=== PATIENT | female | born 1970 | race Caucasian/White ===

== ENCOUNTER → 2020-05-21 09:55 | Outpatient (BNVA) | payer OTHER, SELFPAY | PROVIDERS: Visit Provider Surgery | DX: Z76.89 Persons encountering health services in other specified circumstances (principal) ==

== ENCOUNTER 2020-05-30 09:27 | Outpatient (REF) | payer OTHER, SELFPAY ==
[2020-05-30 09:45] LABS: COVID-19 Test Negative (Negative)
== END 2020-05-30 09:28 | disposition home or self-care (01) ==
LOC: HO.LAB 09:27
PROVIDERS: PCP Internal Medicine; Visit Provider Internal Medicine
DX: Z20.828 Contact with and (suspected) exposure to other viral communicable diseases (principal)
CPT/HCPCS: 87635

== ENCOUNTER → 2020-06-20 09:53 | Outpatient (BNVA) | payer OTHER, SELFPAY | PROVIDERS: PCP Internal Medicine; Referring Provider Nurse Practitioner Adult Health; Visit Provider Physician Assistant | DX: Z98.84 Bariatric surgery status (principal); Z90.3 Acquired absence of stomach [part of]; Z71.3 Dietary counseling and surveillance | CPT/HCPCS: 99212 ==

== ENCOUNTER → 2020-06-28 08:57 | Outpatient (BNVA) | payer OTHER, SELFPAY | PROVIDERS: Visit Provider Physician Assistant | DX: E66.9 Obesity, unspecified (principal); Z68.33 Body mass index [BMI] 33.0-33.9, adult; Z98.84 Bariatric surgery status | CPT/HCPCS: 99212 ==

== ENCOUNTER → 2020-08-01 09:24 | Outpatient (BNVA) | payer OTHER, SELFPAY | PROVIDERS: PCP Internal Medicine; Visit Provider Physician Assistant | DX: Z76.89 Persons encountering health services in other specified circumstances (principal) ==

== ENCOUNTER → 2020-08-22 08:04 | Outpatient (BNVA) | payer OTHER, SELFPAY | PROVIDERS: PCP Internal Medicine; Visit Provider Dietitian, Registered | DX: Z76.89 Persons encountering health services in other specified circumstances (principal) ==

== ENCOUNTER → 2020-08-23 08:15 | Outpatient (BNVA) | payer OTHER, SELFPAY | PROVIDERS: PCP Internal Medicine; Visit Provider Physician Assistant | DX: Z76.89 Persons encountering health services in other specified circumstances (principal) ==

== ENCOUNTER → 2020-10-17 13:57 | Outpatient (REF) | payer OTHER, SELFPAY ==
--- NOTE | 2020-10-17 14:30 | ECG_ITS ---
Hook-up date: 2020-10-17 14:08:00 Duration: 25:24:00 Test Indications: PVC'S Medications: 716829 QRS complexes 976 Ventricular ectopics which represent <1 % of total QRS comp. 9 Supraventricular ectopics which represent <1 % of total QRS comp. * Paced QRS complexs which represent % of total QRS comp. VENTRICULAR ECTOPY 976 Isolated 3 Bigeminal Cycles 0 Couplets 0 Runs 0 Beats in Runs * Beats LONGEST at * BPM at :: -- * Beats FASTEST at * BPM at :: -- SUPRAVENTRICULAR ECTOPY 2 Isolated 0 Couplets 1 Runs 7 Beats in Runs 7 Beats LONGEST at 120 BPM at 03:33:46 2020-10-18 7 Beats FASTEST at 120 BPM at 03:33:46 2020-10-18 HEART RATES 54 MIN at 07:22:27 2020-10-18 79 AVG 135 MAX at 09:16:04 2020-10-18 LONGEST RR 1.4480 secs at 08:17:48 2020-10-18 S-T LEVELS Channel 1 - 128 mm at 14:08:00 2020-10-17 - 128 mm at 14:08:00 2020-10-17 Channel 2 - 128 mm at 14:08:00 2020-10-17 - 128 mm at 14:08:00 2020-10-17 Channel 3 - 128 mm at 03:32:71 -- - 128 mm at 03:32:71 Basic rhythm Normal sinus rhythm No long pause or profound bradycardia Frequent Premature ventricular complexes No diary submitted Referred By: Titus Lomax Overread By: YOHANNES GODINEZ MD
== END ==
LOC: HO.CARD 13:57
PROVIDERS: Visit Provider Internal Medicine
DX: I49.3 Ventricular premature depolarization (principal)
CPT/HCPCS: 93225; 93226

== ENCOUNTER 2020-11-05 12:19 | Outpatient (REF) | payer OTHER, SELFPAY ==
[2020-11-05 13:18] LABS: MANUAL DIFF FLAG NO
[2020-11-05 13:37] LABS: Basophils Percent Auto 0.6 % (0-2); Eosinophils Absolute Auto 0.1 X10*3/uL (0.0-0.4); Eosinophils Percent Auto 2.1 % (0-4); Hematocrit 42.4 % (37-47); Hemoglobin 13.8 g/dl (12.0-16.0); Imm Gran Abs Auto 0.01 X10*3/uL (0.00-0.03); Imm Gran Pct Auto 0.2 % (0.0-0.4); Lymphocytes Absolute Auto 1.6 X10*3/uL (1.2-4.9); Lymphocytes Percent Auto 30.1 % (20-40); Mean Corpuscular HGB Conc 32.5 g/dl (31.0-35.0); Mean Corpuscular Hemoglobin 27.2 pg (27.0-33.0); Mean Corpuscular Volume 83.5 fL (80-98); Mean Platelet Volume 11.8 fL (9.4-12.3); Monocytes Absolute Auto 0.3 X10*3/uL (0.1-1.2); Monocytes Percent Auto 5.8 % (2-11); Neutrophils Absolute Auto 3.2 X10*3/uL (2.0-8.3); Neutrophils Percent Auto 61.2 % (45-73); Platelet Count 256 X10*3/uL (160-400); Red Blood Count 5.08 X10*6/uL (4.20-5.50); Red Cell Distribution Width 14.2 % (11.0-16.0); White Blood Count 5.2 X10*3/uL (4.8-10.8)
[2020-11-05 13:59] LABS: Estimated Average Glucose 105 mg/dL; Hemoglobin A1c % 5.3 %
[2020-11-05 14:17] LABS: Alanine Aminotransferase 16 U/L (0-31); Albumin Level 4.1 g/dL (3.5-5.0); Alkaline Phosphatase 76 U/L (39-117); Anion Gap 13 (12-20); Aspartate Amino Transferase 17 U/L (5-31); Bilirubin Total 0.6 mg/dL (0.0-1.0); Blood Urea Nitrogen 12 mg/dL (9-16); Calcium 9.2 mg/dL (8.4-10.2); Carbon Dioxide 28 mmol/L (22-29); Chloride 104 mmol/L (96-108); Cholesterol 237 mg/dL; Estimated Glomerular Filt Rate > 60; Glucose Random 88 mg/dL (60-115); HDL Cholesterol 61 mg/dL; LDL Cholesterol Calculated 154 mg/dl; Potassium 4.6 mmol/L (3.3-5.1); Sodium 140 mmol/L (135-145); Total Protein 6.8 g/dL (6.5-8.0); Triglycerides 111 mg/dL
[2020-11-05 14:24] LABS: Free T4 (Free Thyroxine) 0.91 ng/dL (0.71-1.85); Thyroid Stimulating Hormone 0.67 uIU/mL (0.32-4.0); Vitamin D 25-OH Total 33.8 ng/mL (>30)
[2020-11-05 14:46] LABS: Creatinine Urine 182.29 mg/dL; Microalbum/Creatinine Ratio Ur 7.1 ug/mg cr
[2020-11-05 14:47] LABS: Folate 19.2 ng/mL (> or = 4.0); Vitamin B12 382 pg/mL (200-900)
== END 2020-11-05 12:20 | disposition home or self-care (01) ==
LOC: HO.LAB 12:19
PROVIDERS: PCP Internal Medicine; Visit Provider Internal Medicine
DX: I10 Essential (primary) hypertension (principal); E78.5 Hyperlipidemia, unspecified; E11.65 Type 2 diabetes mellitus with hyperglycemia; E78.00 Pure hypercholesterolemia, unspecified
CPT/HCPCS: 36415; 80053; 80061; 82043; 82306; 82533; 82607; 82746; 83036; 84439; 84443; 85025

== ENCOUNTER → 2020-11-08 08:10 | Outpatient (BNVA) | payer OTHER, SELFPAY | PROVIDERS: PCP Internal Medicine; Visit Provider Physician Assistant ==

== ENCOUNTER → 2020-11-14 09:09 | Outpatient (BNVA) | payer OTHER, SELFPAY | PROVIDERS: PCP Internal Medicine; Visit Provider Internal Medicine | DX: I49.3 Ventricular premature depolarization (principal); I10 Essential (primary) hypertension; Z98.84 Bariatric surgery status | CPT/HCPCS: 93005; 99212 ==

== ENCOUNTER → 2020-12-12 08:15 | Outpatient (BNVA) | payer OTHER, SELFPAY | PROVIDERS: PCP Internal Medicine; Visit Provider Dietitian, Registered ==

== ENCOUNTER 2021-02-05 07:24 | Outpatient (REF) | payer OTHER, SELFPAY ==
[2021-02-05 08:42] LABS: Alanine Aminotransferase 15 U/L (0-31); Albumin Level 4.2 g/dL (3.5-5.0); Alkaline Phosphatase 80 U/L (39-117); Anion Gap 10 (12-20); Aspartate Amino Transferase 16 U/L (5-31); Bilirubin Total 0.4 mg/dL (0.0-1.0); Blood Urea Nitrogen 14 mg/dL (9-16); Calcium 9.5 mg/dL (8.4-10.2); Carbon Dioxide 30 mmol/L (22-29); Chloride 104 mmol/L (96-108); Cholesterol 245 mg/dL; Estimated Glomerular Filt Rate > 60; Glucose Random 91 mg/dL (60-115); HDL Cholesterol 74 mg/dL; LDL Cholesterol Calculated 148 mg/dl; Potassium 4.1 mmol/L (3.3-5.1); Sodium 140 mmol/L (135-145); Total Protein 6.9 g/dL (6.5-8.0); Triglycerides 118 mg/dL
[2021-02-05 08:57] LABS: Creatinine Urine 158.42 mg/dL
[2021-02-05 09:14] LABS: Estimated Average Glucose 111 mg/dL; Hemoglobin A1c % 5.5 %
[2021-02-10 17:33] LABS: Vitamin A 55 mcg/dL (38-98)
== END 2021-02-05 07:25 | disposition home or self-care (01) ==
LOC: HO.LAB 07:24
PROVIDERS: Physician Assistant; PCP Internal Medicine; Visit Provider Internal Medicine
DX: E78.00 Pure hypercholesterolemia, unspecified (principal); E11.65 Type 2 diabetes mellitus with hyperglycemia; Z98.84 Bariatric surgery status
CPT/HCPCS: 36415; 80053; 80061; 83036; 84590

== ENCOUNTER 2021-08-19 08:35 | Outpatient (REF) | payer OTHER, SELFPAY ==
[2021-08-19 11:10] LABS: Binax Now Covid-19 Ag Negative (Negative)
[2021-08-19 11:11] LABS: Binax Internal Control QC Valid; Binax Lot number: 9864
== END 2021-08-19 08:36 | disposition home or self-care (01) ==
LOC: HO.LAB 08:35
PROVIDERS: Visit Provider Internal Medicine
DX: Z20.822 Contact with and (suspected) exposure to COVID-19 (principal)
CPT/HCPCS: 36415; C9803

== ENCOUNTER → 2021-11-13 07:22 | Outpatient (REF) | payer OTHER, SELFPAY ==
--- NOTE | 2021-11-13 07:24 | CA_ITS ---
Transthoracic Echocardiogram Patient (Last, First, Middle): Rosa Bates, Gender: Female Date of : 1970 Age: 51 Procedure Date: 11/13/2021 Procedure Type: Transthoracic Echocardiogram Location: OP Height: 149.86 cm Weight: 70.31 kg BSA: 1.65 m2 Heart Rate: bpm BP: 126 / 82 mmHg Manager It Training: DEYANIRA Referring MD: Titus Lomax MD Symptoms: I49.3 - Ventricular premature depolarization Study Quality: Good ECG Rhythm: Sinus Conclusions: - The left ventricular systolic function is normal. The calculated ejection fraction is 56% by biplane method. - No obvious valvular pathology seen on this study. Findings Left Ventricle Normal left ventricular cavity size. There is mildly increased left ventricular wall thickness. The left ventricular systolic function is normal. The calculated ejection fraction is 56% by biplane method. There is no evidence of regional wall motion abnormalities. Evidence suggests grade I (mild) diastolic dysfunction. Right Ventricle Normal right ventricular cavity size and systolic function. Atria Both atria are normal in size. Aortic Valve There is a normal trileaflet aortic valve. There is no aortic valve stenosis. There is no aortic valve regurgitation. Mitral Valve The mitral valve appears normal. There is trace mitral valve regurgitation. There is no mitral valve stenosis. Pulmonic Valve The pulmonic valve was not well visualized. Tricuspid Valve Normal tricuspid valve structure. There is trace tricuspid valve regurgitation. The pulmonary artery systolic pressure is normal. Great Vessels The asc aorta and aortic arch are normal in size. Venous The inferior vena cava is normal in size and collapses greater than 50% with inspiration. Pericardium/Pleural There is a trivial pericardial effusion. Prior Study Comparison No significant change compared to prior study dated: 08/29/2019. Recommendations, Care & Conclusions No obvious valvular pathology seen on this study. Measurements 2D Linear Measurements IVSd: 1.11 0.6-0.9/0.6-1.0 cm LVIDd: 5.11 3.9-5.3/4.2-5.9 cm LVIDd Index: 3.10 2.4-3.2/2.2-3.1 cm/m2 LVIDs: 3.36 2.0-3.6 cm LVPWd: 1.21 0.7-1.1 cm LA Diam: 3.90 2.7-3.8/3.0-4.0 cm LAIDs Index: 2.36 1.5-2.3 cm/m2 LV Mass: 287.81 67-162/88-224 g LV Mass Index: 174.43 43-95/49-115 g/m2 LVOT Diam: 2.10 3.0+(-)1.3 cm 2D Systolic Function EF 4C: 54.00 >55% EF 2C: 57.10 >55% EF BiP: 55.70 >55% Mitral Valve MV Pk E: 0.47 MV PK A: 0.45 MV Decel Time: 181.00 E/A: 1.00 E'Lateral: 5.22 E'Medial: 4.03 E/E' Med: 11.70 E/E' Lat: 9.00 PHT: 53.00 MVA PHT: 4.15 Decel [place]: 2.60 Aortic Valve AoV Pk [place]: 1.21 AoV Pk Grad: 6.00 LVOT LVOT Pk Dawson: 0.73 LVOT Mn Dawson: 0.47 LVOT VTI: 0.15 LVOT Pk Grad: 2.00 LVOT Mn Grad: 1.00 LVOT Diam: 2.10 LVOT Area: 3.46 Diastolic Function MV Pk E: 0.47 MV Pk A: 0.45 E/A: 1.00 E'Medial: 4.03 E/E' Med: 11.70 E' Laterial: 5.22 E/E' Lat: 9.00 Right Ventricle TAPSE (mm): 1.80 TVS' Dawson: 11.70 Tricuspid Valve TR Pk Dawson: 1.79 TR Pk Grad: 13.00 RA Press: 3.00 RVSP: 16.00 Great Vessels Aorta Sinus of Valsalva: 3.20 2.0-3.5 cm Ao Asc: 3.40 2.1-3.4 cm Ao Arch: 2.60 Updated in Other Vendor System with Status of Final Titus Lomax MD electronically signed on 11/15/2021 1:41:48 PM with status of Final
== END ==
LOC: HO.CARD 07:22
PROVIDERS: Visit Provider Internal Medicine
DX: I49.3 Ventricular premature depolarization (principal)
CPT/HCPCS: 93306

== ENCOUNTER → 2021-11-26 13:25 | Outpatient (REF) | payer OTHER, SELFPAY ==
--- NOTE | 2021-11-26 13:28 | ECG_ITS ---
Hook-up date: 2021-11-26 12:37:00 Duration: 23:58:00 Test Indications: PAF, VENTR. PREMATURE DEPOL. Medications: [id number] QRS complexes 179 Ventricular ectopics which represent <1 % of total QRS comp. 1 Supraventricular ectopics which represent <1 % of total QRS comp. * Paced QRS complexs which represent % of total QRS comp. VENTRICULAR ECTOPY 177 Isolated 0 Bigeminal Cycles 1 Couplets 0 Runs 0 Beats in Runs * Beats LONGEST at * BPM at :: -- * Beats FASTEST at * BPM at :: -- SUPRAVENTRICULAR ECTOPY 1 Isolated 0 Couplets 0 Runs 0 Beats in Runs * Beats LONGEST at * BPM at :: -- * Beats FASTEST at * BPM at :: -- HEART RATES 50 MIN at 21:48:59 2021-11-26 78 AVG 140 MAX at 05:22:30 2021-11-27 LONGEST RR 1.2240 secs at 21:48:56 2021-11-26 S-T LEVELS Channel 1 - 128 mm at 12:37:00 2021-11-26 - 128 mm at 12:37:00 2021-11-26 Channel 2 - 128 mm at 12:37:00 2021-11-26 - 128 mm at 12:37:00 2021-11-26 Channel 3 - 128 mm at 03:15:61 -- - 128 mm at 03:15:61 Basic rhythm Normal sinus rhythm No long pause or profound bradycardia No sustained Atrial fibrillation Occasional Premature ventricular complexes Patient reported chest pain correlated with NSR Referred By: Titus Lomax Overread By: YOHANNES GODINEZ MD
== END ==
LOC: HO.CARD 13:25
PROVIDERS: PCP Internal Medicine; Visit Provider Internal Medicine
DX: I48.0 Paroxysmal atrial fibrillation (principal); I49.3 Ventricular premature depolarization
CPT/HCPCS: 93225; 93226

== ENCOUNTER → 2021-12-17 08:02 | Outpatient (BNVA) | payer OTHER, SELFPAY | PROVIDERS: PCP Internal Medicine; Referring Provider Internal Medicine; Visit Provider Internal Medicine | DX: I49.3 Ventricular premature depolarization (principal); I10 Essential (primary) hypertension; Z98.84 Bariatric surgery status | CPT/HCPCS: 93005; 99212 ==

== ENCOUNTER → 2022-06-29 16:25 | Outpatient (BNVA) | payer OTHER, SELFPAY | PROVIDERS: PCP Internal Medicine; Visit Provider Physician Assistant Surgical | DX: E66.3 Overweight (principal); L98.7 Excessive and redundant skin and subcutaneous tissue; Z98.84 Bariatric surgery status; Z68.29 Body mass index [BMI] 29.0-29.9, adult | CPT/HCPCS: 99212 ==

== ENCOUNTER → 2022-07-03 08:23 | Outpatient (BNVA) | payer OTHER, SELFPAY | PROVIDERS: PCP Internal Medicine; Visit Provider Internal Medicine | DX: R94.31 Abnormal electrocardiogram [ECG] [EKG] (principal) | CPT/HCPCS: 93005 ==

== ENCOUNTER 2022-07-10 10:01 | Outpatient (REF) | payer OTHER, SELFPAY ==
[2022-07-10 10:25] LABS: MANUAL DIFF FLAG NO
[2022-07-10 10:58] LABS: Basophils Percent Auto 1.1 % (0-2); Eosinophils Absolute Auto 0.1 X10*3/uL (0.0-0.4); Eosinophils Percent Auto 1.8 % (0-4); Hematocrit 43.1 % (37.0-47.0); Hemoglobin 14.4 g/dl (12.0-16.0); Lymphocytes Absolute Auto 1.2 X10*3/uL (1.2-4.9); Lymphocytes Percent Auto 31.3 % (20-40); Mean Corpuscular HGB Conc 33.4 g/dl (31.0-35.0); Mean Corpuscular Volume 80.7 fL (80.0-98.0); Mean Platelet Volume 11.6 fL (9.4-12.3); Monocytes Absolute Auto 0.3 X10*3/uL (0.1-1.2); Monocytes Percent Auto 7.4 % (2-11); Neutrophils Absolute Auto 2.2 x10*3/uL (2.0-8.3); Neutrophils Percent Auto 58.4 % (45-73); Platelet Count 237 X10*3/uL (160-400); Red Blood Count 5.34 X10*6/uL (4.20-5.50); Red Cell Distribution Width 12.9 % (11.0-16.0); White Blood Count 3.8 X10*3/uL (4.8-10.8)
[2022-07-10 11:26] LABS: Creatinine Urine 313.36 mg/dL; Microalbum/Creatinine Ratio Ur 27.7 ug/mg cr
[2022-07-10 11:45] LABS: Estimated Average Glucose 111 mg/dL; Hemoglobin A1c % 5.5 %
[2022-07-10 11:58] LABS: Alanine Aminotransferase 16 U/L (0-31); Albumin Level 4.2 g/dL (3.5-5.0); Alkaline Phosphatase 87 U/L (39-117); Anion Gap 14 (12-20); Aspartate Amino Transferase 19 U/L (5-31); Bilirubin Total 0.6 mg/dL (0.0-1.0); Blood Urea Nitrogen 12 mg/dL (9-16); C Reactive Protein 0.11 mg/dL (< or = 0.50); Calcium 9.1 mg/dL (8.4-10.2); Carbon Dioxide 27 mmol/L (22-29); Chloride 104 mmol/L (96-108); Cholesterol 234 mg/dL; Estimated Glomerular Filt Rate > 60; Glucose Random 95 mg/dL (60-115); HDL Cholesterol 78 mg/dL; Iron 80 mcg/dL (30-160); LDL Cholesterol Calculated 139 mg/dl; Percent Iron Saturation 24 % (15-50); Potassium 3.7 mmol/L (3.3-5.1); Sodium 141 mmol/L (135-145); Total Iron Binding Capacity 328 mcg/dL (228-428); Triglycerides 88 mg/dL; Unsaturated Iron Binding 248 ug/dL
[2022-07-10 12:22] LABS: Ferritin 48 ng/mL (10-250); Free T4 (Free Thyroxine) 0.94 ng/dL (0.71-1.85); Insulin 5 uU/mL (2-29); TSH reflex Free T4 0.85 uIU/mL (0.32-4.0); Vitamin D 25-OH Total 29.9 ng/mL (>30)
[2022-07-10 14:16] LABS: Vitamin B12 255 pg/mL (200-900)
[2022-07-12 10:17] LABS: Calcium (PTHI) 9.1 mg/dL (8.6-10.4); PTHI 122 pg/mL (16-77)
[2022-07-14 17:22] LABS: Vitamin B1 10 nmol/L (8-30)
[2022-07-14 19:41] LABS: Zinc 68 mcg/dL (60-130)
[2022-07-15 08:59] LABS: Vitamin A 53 mcg/dL (38-98)
== END 2022-07-10 10:02 | disposition home or self-care (01) ==
LOC: HO.LAB 10:01
PROVIDERS: Absent Provider Internal Medicine; PCP Internal Medicine; Visit Provider Physician Assistant Surgical
DX: I10 Essential (primary) hypertension (principal); E78.00 Pure hypercholesterolemia, unspecified; E11.65 Type 2 diabetes mellitus with hyperglycemia; Z98.84 Bariatric surgery status
CPT/HCPCS: 36415; 80053; 80061; 82043; 82306; 82607; 82728; 82746; 83036; 83525; 83540; 83735; 83970; 84425; 84439; 84443; 84590; 84630; 85025; 86140

== ENCOUNTER 2022-07-13 13:40 | Outpatient (REF) | payer OTHER, SELFPAY ==
[2022-07-13 14:06] LABS: MANUAL DIFF FLAG NO
[2022-07-13 15:01] LABS: Basophils Percent Auto 0.8 % (0-2); Eosinophils Absolute Auto 0.1 X10*3/uL (0.0-0.4); Eosinophils Percent Auto 1.2 % (0-4); Hematocrit 41.6 % (37.0-47.0); Hemoglobin 13.7 g/dl (12.0-16.0); Imm Gran Abs Auto 0.01 X10*3/uL (0.00-0.03); Imm Gran Pct Auto 0.2 % (0.0-0.4); Lymphocytes Absolute Auto 1.6 X10*3/uL (1.2-4.9); Mean Corpuscular HGB Conc 32.9 g/dl (31.0-35.0); Mean Corpuscular Hemoglobin 27.1 pg (27.0-33.0); Mean Corpuscular Volume 82.2 fL (80.0-98.0); Mean Platelet Volume 11.7 fL (9.4-12.3); Monocytes Absolute Auto 0.3 X10*3/uL (0.1-1.2); Monocytes Percent Auto 6.2 % (2-11); Neutrophils Absolute Auto 2.8 x10*3/uL (2.0-8.3); Neutrophils Percent Auto 57.6 % (45-73); Platelet Count 245 X10*3/uL (160-400); Prothrombin Time 11.6 SEC (10.0-13.1); Red Blood Count 5.06 X10*6/uL (4.20-5.50); White Blood Count 4.8 X10*3/uL (4.8-10.8)
[2022-07-13 15:09] LABS: Estimated Average Glucose 111 mg/dL; Hemoglobin A1c % 5.5 %
[2022-07-13 16:19] LABS: Alanine Aminotransferase 19 U/L (0-31); Alkaline Phosphatase 83 U/L (39-117); Anion Gap 12 (12-20); Aspartate Amino Transferase 18 U/L (5-31); Bilirubin Total 0.4 mg/dL (0.0-1.0); Blood Urea Nitrogen 12 mg/dL (9-16); Calcium 9.2 mg/dL (8.4-10.2); Carbon Dioxide 27 mmol/L (22-29); Chloride 103 mmol/L (96-108); Estimated Glomerular Filt Rate > 60; Free T4 (Free Thyroxine) 0.92 ng/dL (0.71-1.85); Glucose Random 99 mg/dL (60-115); Potassium 3.6 mmol/L (3.3-5.1); Sodium 138 mmol/L (135-145); Thyroid Stimulating Hormone 0.83 uIU/mL (0.32-4.0); Total Protein 6.7 g/dL (6.5-8.0); Vitamin D 25-OH Total 30.9 ng/mL (>30)
[2022-07-13 16:27] LABS: Folate 9.3 ng/mL (> or = 4.0); Vitamin B12 254 pg/mL (200-900)
[2022-07-13 17:58] LABS: Creatinine Urine 125.82 mg/dL
[2022-07-14 08:04] LABS: HIV AB/AG Nonreactive (Nonreactive); HIV Num 1 0.07 S/CO (0.00-0.99)
[2022-07-20 17:33] LABS: Mixing Study - PT 10.8 sec (9.0-11.5); PTT LA 33 sec (< OR = 40)
== END 2022-07-13 13:41 | disposition home or self-care (01) ==
LOC: HO.LAB 13:40
PROVIDERS: PCP Internal Medicine; Visit Provider Nurse Practitioner Family
DX: Z01.818 Encounter for other preprocedural examination (principal); E11.65 Type 2 diabetes mellitus with hyperglycemia; I10 Essential (primary) hypertension; E78.00 Pure hypercholesterolemia, unspecified; Z11.4 Encounter for screening for human immunodeficiency virus [HIV]; Z98.84 Bariatric surgery status
CPT/HCPCS: 36415; 80053; 82306; 82607; 82746; 83036; 83735; 84439; 84443; 85025; 85610; 85611; 85732; 87389

== ENCOUNTER → 2022-08-05 09:22 | Outpatient (BNVA) | payer OTHER, SELFPAY ==
--- NOTE | 2022-08-15 16:01 | P.EN_ITS ---
Event Note Date of Service: 08/15/22 Event Note: pt s/p panicculectomy and mastopexy in [place] 07/21 and now had corey drains from abdomino on 08/05 here in surg office. says now umbilicus is draining pus and she has temp of 102. she was advised to come to the OR and she says she cant because she has disabled son. she wants antibx - has f/u appt this week in office plan - call in [facility] and she needs to come in to the ER tomorrow when can get care for her son. Time Spent With Patient Time: Total time managing care of this patient today ____ minutes.
== END ==
PROVIDERS: PCP Internal Medicine; Visit Provider Physician Assistant Surgical
DX: Z48.03 Encounter for change or removal of drains (principal); Z98.890 Other specified postprocedural states
CPT/HCPCS: 99212; 99499

== ENCOUNTER 2022-08-16 11:47 | Inpatient (IN) | payer OTHER, SELFPAY ==
--- NOTE | ~2022-08-16 | CT_ITS ---
EXAMINATION: CT ABDOMEN AND PELVIS WITH CONTRAST CLINICAL INFORMATION: Status post recent surgery with pain and discharge about the incisional site. COMPARISON: Ultrasound of January 25, 2020 TECHNIQUE: Multidetector volumetric images were obtained from the superior aspect of the liver through the pubic symphysis following administration 85 mL of Omnipaque 350 intravenous contrast. Sagittal and coronal reformatted images were obtained on the technologist's workstation. Oral contrast: No This CT examination was performed using dose optimization techniques as appropriate, variously including the following: *Automated exposure control *Adjustment of mA and/or kV according to patient size (this includes techniques or standardized protocols for targeted exams where dose is matched to indication/reason for exam; i.e. extremities or head) *Use of iterative reconstruction technique DLP: 559 mGy-cm FINDINGS: LUNG BASES: There is some groundglass opacity seen at the right base consistent with atelectasis. No pleural or pericardial effusion. Heart normal size. LIVER, GALLBLADDER, AND BILIARY TREE: The liver is normal in size, shape, and attenuation. No focal hepatic lesion or biliary ductal dilatation is present. There is a subcentimeter cyst seen within segment 3 of the liver. The gallbladder is unremarkable with no evidence of radiopaque gallstones, gallbladder wall thickening, or obvious pericholecystic inflammatory changes. PANCREAS: Unremarkable. No abnormal mass or peripancreatic inflammatory change. SPLEEN: Unremarkable. ADRENAL GLANDS: Unremarkable. KIDNEYS AND URETERS: The kidneys are normal in size, shape, and attenuation. No hydronephrosis, hydroureter, or calculi seen. No perinephric stranding. BLADDER: Unremarkable. GASTROINTESTINAL TRACT: No dilated loops of large or small bowel are present. No free air or free fluid within the peritoneal cavity is seen. Patient is status post gastric surgery with no adjacent fluid collection. No pericolonic inflammatory change is seen. The appendix appears unremarkable. ABDOMINAL WALL: Within the subcutaneous tissues of the anterior abdominal wall just peripheral to the musculature there is prominent fat stranding present as well as what appears to be a fistula to skin about the right lower abdomen. There appears to be a thin liquefied collection with some gas within it adjacent to the muscle with no intervening fat plane. This measures approximately 7 mm in AP dimension along the entire with the anterior abdominal wall for approximately 18 cm. LYMPH NODES: No lymphadenopathy is seen however there are numerous nonenlarged lymph nodes present adjacent to the collection. No intraperitoneal lymphadenopathy. VASCULAR: Unremarkable. PELVIC VISCERA: Unremarkable. OSSEOUS STRUCTURES: Unremarkable. CT/CT abdomen pelvis w IV con IMPRESSION: No significant intraperitoneal abnormality appreciated. Subcutaneous anterior abdominal wall collection with edema and gas decompressing to the skin through a fistula within the right lower quadrant. Fleischner guidelines were followed.
[2022-08-16 11:57] VITALS: BP 141/76; PULSE 94; RESP 19; TEMP 36.6; O2SAT 97; BMI 31.2
--- NOTE | 2022-08-16 11:58 | ED_ITS ---
HPI - General Adult General Chief complaint: General Medical <GARIMA Fernandez - Last Filed: 08/16/22 12:01> Stated complaint: rupture of surgical incision <GARIMA Fernandez - Last Filed: 08/16/22 12:01> Time Seen by Provider: 08/16/22 16:03 <GARIMA Fernandez - Last Filed: 08/16/22 12:01> Source: patient <GARIMA Fernandez - Last Filed: 08/16/22 12:01> Mode of arrival: wheelchair <GARIMA Fernandez - Last Filed: 08/16/22 12:01> Limitations: no limitations <GARIMA Fernandez - Last Filed: 08/16/22 12:01> History of Present Illness HPI narrative: A 52-year-old female with a history of gastric sleeve done by Dr. Sprague in 2019, subsequent abdominal plasty with bilateral mastopexy 07/21 in [place] with POLLY drains removed on 08/05 by General surgery who presents with complaints of fever, drainage from the umbilicus. Patient did have a conversation with Dr. Addison yesterday and a prescription for Keflex was sent to the pharmacy but the patient was unable to pick it up because the pharmacy closed. 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 During the night she had alot drainage described as serosanguineous coming from her incision. <Jania Keene NP - Last Filed: 08/16/22 18:29> Related Data Home medications: Home Medications Medication Instructions Recorded Confirmed acetaminophen 650 mg 1,300 mg PO Q8H PRN Pain 08/16/22 08/16/22 tablet,extended release hrgrjeplap-jqncsjdbrzzde-vrrikbpo 1 cap PO Q8H PRN Migraine Headache 08/16/22 08/16/22 50 mg-300 mg-40 mg capsule fluoxetine 20 mg capsule 1 cap PO BID 08/16/22 08/16/22 lorazepam 0.5 mg tablet 0.5 mg PO DAILY PRN Anxiety 08/16/22 08/16/22 pantoprazole 40 mg tablet,delayed 40 mg PO DAILY@0630 08/16/22 08/16/22 release trazodone 150 mg tablet 1 tab PO BEDTIME PRN insomnia 08/16/22 08/16/22 Previous Rx's Medication Instructions Recorded magnesium 200 mg tablet 200 mg PO DAILY 90 days #90 tabs 07/24/21 cholecalciferol (vitamin D3) 25 25 mcg PO DAILY #90 caps 07/15/22 mcg (1,000 unit) capsule cyanocobalamin (vitamin B-12) 1,000 mcg PO DAILY #30 caps 08/03/22 1,000 mcg capsule <GARIMA Fernandez - Last Filed: 08/16/22 12:01> Allergies/adverse reactions: Allergies Allergy/AdvReac Type Severity Reaction Status Date / Time lisinopril [LISINOPRIL] Allergy Intermediate SWELLING/BLURRY Verified 08/05/22 09:49 VISION house dust Allergy Mild Hives Verified 08/05/22 09:54 <GARIMA Fernandez - Last Filed: 08/16/22 12:01> Review of Systems Review of Systems: Yes all other systems are reviewed and are negative <Jania Keene NP - Last Filed: 08/16/22 18:29> Constitutional: Constitutional: Reports no additional constitutional complaints, Denies body ache(s), Denies chills, Reports fever(s), Denies headache(s) and Denies weakness <Jania Keene NP - Last Filed: 08/16/22 18:29> Eyes: Eyes: Reports no additional eye complaints and Denies change in vision <Jania Keene NP - Last Filed: 08/16/22 18:29> ENT: Reports system reviewed and no additional complaints, except as documented, Denies dizziness, Denies headache(s), Denies nasal congestion, Denies nasal discharge and Denies neck pain <Jania Keene NP - Last Filed: 08/16/22 18:29> Cardiovascular: Cardiovascular: Reports no additional cardiovascular complaints, Denies chest pain, Denies leg edema and Denies dyspnea <Jania Keene NP - Last Filed: 08/16/22 18:29> Respiratory: Respiratory: Reports no additional respiratory complaints, Denies cough and Denies dyspnea <Jania Keene NP - Last Filed: 08/16/22 18:29> Gastrointestinal: Gastrointestinal: Reports no additional gastrointestinal complaints, Reports abdominal pain, Denies diarrhea, Denies nausea and Denies vomiting <Jania Keene NP - Last Filed: 08/16/22 18:29> Genitourinary: Genitourinary: Reports no additional female genitourinary complaints and Denies urinary incontinence <Jania Keene NP - Last Filed: 08/16/22 18:29> Musculoskeletal: Musculoskeletal: Reports no additional musculoskeletal complaints, Denies back pain, Denies arthralgias, Denies joint swelling, Denies neck pain, Denies numbness and Denies tingling <Jania Keene NP - Last Filed: 08/16/22 18:29> Integumentary/Breasts: Skin/Breast: Reports system reviewed and no additional complaints, except as docu and Denies rash <Jania Keene NP - Last Filed: 08/16/22 18:29> Neurologic: Reports system reviewed and no additional complaints, except as documented, Denies dizziness, Denies headache(s), Denies numbness, Denies tingling and Denies weakness <Jania Keene NP - Last Filed: 08/16/22 18:29> FOR[facility]LY [facility] Past Medical History Attestation statement: The following information was validated with the patient. 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 Mother Depression Anxiety Asthma Diabetes Hypertension Brother Bipolar 1 disorder Sister No problems noted. Sister No problems noted. Sister No problems noted. Son No problems noted. Son No problems noted. Daughter No problems noted. Maternal Grandmother Lymphoma <GARIMA Fernandez - Last Filed: 08/16/22 12:01> Social History Social History: Social History Housing: Apartment Alcohol intake: never Patient Tobacco Use Status: Never used Tobacco e-Cigarette/Vaping Use: Never Used Second Hand Smoke Exposure: No Advance Directives: Yes Advance Directives on File: Yes Advance Directives Date on File: 08/16/22 service: No Current occupational status: employed Current occupational exposures/hazards: No Cognitive needs: No Hearing needs: No Vision needs: Yes <GARIMA Fernandez - Last Filed: 08/16/22 12:01> Physical Exam ED Vital Signs: Vital Signs - 24 hr 08/16/22 11:57 Temperature 98 F Pulse Rate 94 Respiratory Rate 19 Blood Pressure 141/76 H Pulse Oximetry 97 Oxygen Delivery Method Room Air BMI result Body Mass Index 31.2 <GARIMA Fernandez - Last Filed: 08/16/22 12:01> Vital Signs - 24 hr 08/16/22 11:57 Temperature 98 F Pulse Rate 94 Respiratory Rate 19 Blood Pressure 141/76 H Pulse Oximetry 97 Oxygen Delivery Method Room Air BMI result Body Mass Index 31.2 <Jania Keene NP - Last Filed: 08/16/22 18:29> Const General: cooperative, healthy appearing, comfortable and no acute distress <Jania Keene NP - Last Filed: 08/16/22 18:29> Orientation/consciousness: patient oriented x3 <Jania Keene NP - Last Filed: 08/16/22 18:29> Limitations: no limitations <Jania Keene NP - Last Filed: 08/16/22 18:29> HENMT Head: Yes normal to inspection <Jania Keene NP - Last Filed: 08/16/22 18:29> Eyes General: appearance normal, both eyes and all related structures <Jania Keene NP - Last Filed: 08/16/22 18:29> Neck Neck: Yes normal visual inspection <Jania Keene NP - Last Filed: 08/16/22 18:29> Chest Chest palpation & inspection: normal inspection of the chest <Jania Keene NP - Last Filed: 08/16/22 18:29> Resp Effort & Inspection: normal respiratory effort <Jania Keene NP - Last Filed: 08/16/22 18:29> Auscultation: clear to auscultation bilaterally <Jania Keene NP - Last Filed: 08/16/22 18:29> Cardio Rate: regular rate <Jania Keene NP - Last Filed: 08/16/22 18:29> Rhythm: regular rhythm <Jania Keene NP - Last Filed: 08/16/22 18:29> Peripheral pulses: Peripheral pulses 2+ throughout <Jania Keene NP - Last Filed: 08/16/22 18:29> GI Other: Surgical incision noted across the lower abdomen. There is some erythema and drainage noted from the umbilicus. At the mid and right aspect of the surgical incision there is slight dehiscence noted with swelling, induration underneath the skin noted + tenderness to palpation <Jania Keene NP - Last Filed: 08/16/22 18:29> General: Yes no CVA tenderness <Jania Keene NP - Last Filed: 08/16/22 18:29> Back/Spine/Pelvis Back: no CVA tenderness <Jania Keene NP - Last Filed: 08/16/22 18:29> Thoracic/Lumbar Spine: thoracic and lumbar spine normal to inspection <Jania Keene NP - Last Filed: 08/16/22 18:29> Neuro General: patient oriented x3 and moves all extremities <Jania Keene NP - Last Filed: 08/16/22 18:29> Cognition (Neuro): normal cognition <Jania Keene NP - Last Filed: 08/16/22 18:29> Gait exam (Neuro): Normal gait present <Jania Keene NP - Last Filed: 08/16/22 18:29> Course Course Course Narrative: RME performed by Freda Mann PA-C. Patient is a 52 year old female presenting to the emergency department after sutures in her abdomen opened up. Patient states that she got a tummy tuck in [place]. Spoke to Dr. Addison who recommended she come to the ER. Labs and imaging ordered, patient placed in waiting room pending results and room availability. <GARIMA Fernandez - Last Filed: 08/16/22 12:01> Medications Administered Discontinued Medications Generic Name Dose Route Start Last Admin Trade Name Freq PRN Reason Stop Dose Admin Piperacillin Sod/Tazobactam 50 mls @ 100 mls/hr 08/16/22 16:25 08/16/22 17:18 Sod 3.375 gm/ Sodium Chloride IV 08/16/22 16:54 Infused ONCE ONE Infusion Iohexol 100 ml 08/16/22 16:40 08/16/22 16:40 Iohexol 350 Mg/Ml 100 Ml Infus..Btl IV 08/16/22 16:41 85 ml ONCE ONE Administration <GARIMA Fernandez - Last Filed: 08/16/22 12:01> Medications Administered Discontinued Medications Generic Name Dose Route Start Last Admin Trade Name Freq PRN Reason Stop Dose Admin Piperacillin Sod/Tazobactam 50 mls @ 100 mls/hr 08/16/22 16:25 08/16/22 17:18 Sod 3.375 gm/ Sodium Chloride IV 08/16/22 16:54 Infused ONCE ONE Infusion Iohexol 100 ml 08/16/22 16:40 08/16/22 16:40 Iohexol 350 Mg/Ml 100 Ml Infus..Btl IV 08/16/22 16:41 85 ml ONCE ONE Administration <Jania Keene NP - Last Filed: 08/16/22 18:29> Medical Decision Making Medical Decision Making MDM Narrative: 52-year-old female with a history of gastric sleeve, abdominal plasty, mastopexy with POLLY drains removed on 08/05 now with fever, significant drainage from surgical incision. 1630-At this time infection suspected. Labs including blood cultures and lactic acid ordered. CT of the abdomen and pelvis with IV contrast ordered. Antibiotics ordered <Jania Keene NP - Last Filed: 08/16/22 18:29> Differential Diagnosis Differential Diagnoses: The differential diagnosis associated with the presentation includes <Jania Keene NP - Last Filed: 08/16/22 18:29> Abdominal infection, surgical dehiscence, abdominal abscess <Jania Keene NP - Last Filed: 08/16/22 18:29> Admission/Observation Consideration of admission/observation: Escalation of care including admission/observation considered <Jania Keene NP - Last Filed: 08/16/22 18:29> Admission which General surgery consult, IV antibiotics <Jania Keene NP - Last Filed: 08/16/22 18:29> Consult Healthcare Provider Management of the patient was discussed with: Salesperson [employer] (General surgery) <Jania Keene NP - Last Filed: 08/16/22 18:29> Spoke to General surgery on-call. Recommended admission and they will admit her. Keep her NPO after midnight. Patient may need debridement in the OR tomorrow. Recommended initiating antibiotics and culturing the fluid <Jania Keene NP - Last Filed: 08/16/22 18:29> Lab Data MDM Lab Attestation statement: I reviewed the patient's lab results. <Jania Keene NP - Last Filed: 08/16/22 18:29> Result Diagrams: : 08/16/22 13:17 08/16/22 13:17 <GARIMA Fernandez - Last Filed: 08/16/22 12:01> Labs: Lab Results 08/16/22 08/16/22 08/16/22 Range/Units 13:17 13:17 13:17 WBC 10.2 (4.8-10.8) X10*3/uL RBC 3.69 L D (4.20-5.50) X10*6/uL Hgb 9.8 L D (12.0-16.0) g/dl Hct 30.9 L D (37.0-47.0) % MCV 83.7 (80.0-98.0) fL MCH 26.6 L (27.0-33.0) pg MCHC 31.7 (31.0-35.0) g/dl RDW 13.2 (11.0-16.0) % Plt Count 378 D (160-400) X10*3/uL MPV 10.2 (9.4-12.3) fL Immature Gran % (Auto) 0.3 (0.0-0.4) % Neut % (Auto) 78.3 H (45-73) % Lymph % (Auto) 13.4 L (20-40) % Marathon % (Auto) 7.5 (2-11) % Eos % (Auto) 0.2 (0-4) % Baso % (Auto) 0.3 (0-2) % Lymph # (Auto) 1.4 (1.2-4.9) X10*3/uL Marathon # (Auto) 0.8 (0.1-1.2) X10*3/uL Eos # (Auto) 0.0 (0.0-0.4) X10*3/uL Baso # (Auto) 0.0 (0.0-0.2) X10*3/uL Abs Immat Gran (auto) 0.03 (0.00-0.03) X10*3/uL Absolute Neuts (auto) 8.0 (2.0-8.3) x10*3/uL Absolute Nucleated RBC 0.000 (0.0-0.012) X10*3/uL Nucleated RBC % (auto) 0.0 (0.0-0.2) /100WBC ESR 101 H (0-20) MM/HR Sodium 140 (135-145) mmol/L Potassium 3.9 (3.3-5.1) mmol/L Chloride 104 (96-108) mmol/L Carbon Dioxide 24 (22-29) mmol/L Anion Gap 16 (12-20) BUN 14 (9-16) mg/dL Creatinine 0.77 (0.5-1.4) mg/dL Estim Creat Clear Calc 77.7 Estimated GFR > 60 Random Glucose 100 (60-115) mg/dL Lactic Acid (0.5-2.0) mmol/L Calcium 9.2 (8.4-10.2) mg/dL Magnesium 2.0 (1.6-2.6) mg/dL Total Bilirubin 0.4 (0.0-1.0) mg/dL AST 10 D (5-31) U/L ALT 10 (0-31) U/L Alkaline Phosphatase 86 (39-117) U/L C-Reactive Protein 36.96 H (< or = 0.50) mg/dL Total Protein 6.7 (6.5-8.0) g/dL Albumin 3.6 (3.5-5.0) g/dL Influenza Type A (PCR) (Negative) Influenza Type B (PCR) (Negative) RSV RNA Qual (PCR) (Negative) SARS-CoV-2 RNA (RT-PCR) (Negative) 08/16/22 08/16/22 Range/Units 13:17 13:17 WBC (4.8-10.8) X10*3/uL RBC (4.20-5.50) X10*6/uL Hgb (12.0-16.0) g/dl Hct (37.0-47.0) % MCV (80.0-98.0) fL MCH (27.0-33.0) pg MCHC (31.0-35.0) g/dl RDW (11.0-16.0) % Plt Count (160-400) X10*3/uL MPV (9.4-12.3) fL Immature Gran % (Auto) (0.0-0.4) % Neut % (Auto) (45-73) % Lymph % (Auto) (20-40) % Marathon % (Auto) (2-11) % Eos % (Auto) (0-4) % Baso % (Auto) (0-2) % Lymph # (Auto) (1.2-4.9) X10*3/uL Marathon # (Auto) (0.1-1.2) X10*3/uL Eos # (Auto) (0.0-0.4) X10*3/uL Baso # (Auto) (0.0-0.2) X10*3/uL Abs Immat Gran (auto) (0.00-0.03) X10*3/uL Absolute Neuts (auto) (2.0-8.3) x10*3/uL Absolute Nucleated RBC (0.0-0.012) X10*3/uL Nucleated RBC % (auto) (0.0-0.2) /100WBC ESR (0-20) MM/HR Sodium (135-145) mmol/L Potassium (3.3-5.1) mmol/L Chloride (96-108) mmol/L Carbon Dioxide (22-29) mmol/L Anion Gap (12-20) BUN (9-16) mg/dL Creatinine (0.5-1.4) mg/dL Estim Creat Clear Calc Estimated GFR Random Glucose (60-115) mg/dL Lactic Acid 0.9 (0.5-2.0) mmol/L Calcium (8.4-10.2) mg/dL Magnesium (1.6-2.6) mg/dL Total Bilirubin (0.0-1.0) mg/dL AST (5-31) U/L ALT (0-31) U/L Alkaline Phosphatase (39-117) U/L C-Reactive Protein (< or = 0.50) mg/dL Total Protein (6.5-8.0) g/dL Albumin (3.5-5.0) g/dL Influenza Type A (PCR) NEGATIVE (Negative) Influenza Type B (PCR) NEGATIVE (Negative) RSV RNA Qual (PCR) NEGATIVE (Negative) SARS-CoV-2 RNA (RT-PCR) NEGATIVE (Negative) <GARIMA Fernandez - Last Filed: 08/16/22 12:01> Lab Results 08/16/22 08/16/22 08/16/22 Range/Units 13:17 13:17 13:17 WBC 10.2 (4.8-10.8) X10*3/uL RBC 3.69 L D (4.20-5.50) X10*6/uL Hgb 9.8 L D (12.0-16.0) g/dl Hct 30.9 L D (37.0-47.0) % MCV 83.7 (80.0-98.0) fL MCH 26.6 L (27.0-33.0) pg MCHC 31.7 (31.0-35.0) g/dl RDW 13.2 (11.0-16.0) % Plt Count 378 D (160-400) X10*3/uL MPV 10.2 (9.4-12.3) fL Immature Gran % (Auto) 0.3 (0.0-0.4) % Neut % (Auto) 78.3 H (45-73) % Lymph % (Auto) 13.4 L (20-40) % Marathon % (Auto) 7.5 (2-11) % Eos % (Auto) 0.2 (0-4) % Baso % (Auto) 0.3 (0-2) % Lymph # (Auto) 1.4 (1.2-4.9) X10*3/uL Marathon # (Auto) 0.8 (0.1-1.2) X10*3/uL Eos # (Auto) 0.0 (0.0-0.4) X10*3/uL Baso # (Auto) 0.0 (0.0-0.2) X10*3/uL Abs Immat Gran (auto) 0.03 (0.00-0.03) X10*3/uL Absolute Neuts (auto) 8.0 (2.0-8.3) x10*3/uL Absolute Nucleated RBC 0.000 (0.0-0.012) X10*3/uL Nucleated RBC % (auto) 0.0 (0.0-0.2) /100WBC ESR 101 H (0-20) MM/HR Sodium 140 (135-145) mmol/L Potassium 3.9 (3.3-5.1) mmol/L Chloride 104 (96-108) mmol/L Carbon Dioxide 24 (22-29) mmol/L Anion Gap 16 (12-20) BUN 14 (9-16) mg/dL Creatinine 0.77 (0.5-1.4) mg/dL Estim Creat Clear Calc 77.7 Estimated GFR > 60 Random Glucose 100 (60-115) mg/dL Lactic Acid (0.5-2.0) mmol/L Calcium 9.2 (8.4-10.2) mg/dL Magnesium 2.0 (1.6-2.6) mg/dL Total Bilirubin 0.4 (0.0-1.0) mg/dL AST 10 D (5-31) U/L ALT 10 (0-31) U/L Alkaline Phosphatase 86 (39-117) U/L C-Reactive Protein 36.96 H (< or = 0.50) mg/dL Total Protein 6.7 (6.5-8.0) g/dL Albumin 3.6 (3.5-5.0) g/dL Influenza Type A (PCR) (Negative) Influenza Type B (PCR) (Negative) RSV RNA Qual (PCR) (Negative) SARS-CoV-2 RNA (RT-PCR) (Negative) 08/16/22 08/16/22 Range/Units 13:17 13:17 WBC (4.8-10.8) X10*3/uL RBC (4.20-5.50) X10*6/uL Hgb (12.0-16.0) g/dl Hct (37.0-47.0) % MCV (80.0-98.0) fL MCH (27.0-33.0) pg MCHC (31.0-35.0) g/dl RDW (11.0-16.0) % Plt Count (160-400) X10*3/uL MPV (9.4-12.3) fL Immature Gran % (Auto) (0.0-0.4) % Neut % (Auto) (45-73) % Lymph % (Auto) (20-40) % Marathon % (Auto) (2-11) % Eos % (Auto) (0-4) % Baso % (Auto) (0-2) % Lymph # (Auto) (1.2-4.9) X10*3/uL Marathon # (Auto) (0.1-1.2) X10*3/uL Eos # (Auto) (0.0-0.4) X10*3/uL Baso # (Auto) (0.0-0.2) X10*3/uL Abs Immat Gran (auto) (0.00-0.03) X10*3/uL Absolute Neuts (auto) (2.0-8.3) x10*3/uL Absolute Nucleated RBC (0.0-0.012) X10*3/uL Nucleated RBC % (auto) (0.0-0.2) /100WBC ESR (0-20) MM/HR Sodium (135-145) mmol/L Potassium (3.3-5.1) mmol/L Chloride (96-108) mmol/L Carbon Dioxide (22-29) mmol/L Anion Gap (12-20) BUN (9-16) mg/dL Creatinine (0.5-1.4) mg/dL Estim Creat Clear Calc Estimated GFR Random Glucose (60-115) mg/dL Lactic Acid 0.9 (0.5-2.0) mmol/L Calcium (8.4-10.2) mg/dL Magnesium (1.6-2.6) mg/dL Total Bilirubin (0.0-1.0) mg/dL AST (5-31) U/L ALT (0-31) U/L Alkaline Phosphatase (39-117) U/L C-Reactive Protein (< or = 0.50) mg/dL Total Protein (6.5-8.0) g/dL Albumin (3.5-5.0) g/dL Influenza Type A (PCR) NEGATIVE (Negative) Influenza Type B (PCR) NEGATIVE (Negative) RSV RNA Qual (PCR) NEGATIVE (Negative) SARS-CoV-2 RNA (RT-PCR) NEGATIVE (Negative) <Jania Keene NP - Last Filed: 08/16/22 18:29> Independent Interpretation I performed an independent interpretation of an: CT Scan (I independently reviewed the CT scan and agree with the radiology report) <Jania Keene NP - Last Filed: 08/16/22 18:29> Radiology Impression Discussion of test interpretation with radiology: I have reviewed the radiologist's reading. <Jania Keene NP - Last Fi led: 08/16/22 18:29> Radiologist Impression: FINDINGS: LUNG BASES: There is some groundglass opacity seen at the right base consistent with atelectasis. No pleural or pericardial effusion. Heart normal size.? LIVER, GALLBLADDER, AND BILIARY TREE: The liver is normal in size, shape, and attenuation. No focal hepatic lesion or biliary ductal dilatation is present. There is a subcentimeter cyst seen within segment 3 of the liver. The gallbladder is unremarkable with no evidence of radiopaque gallstones, gallbladder wall thickening, or obvious pericholecystic inflammatory changes.? PANCREAS: Unremarkable. No abnormal mass or peripancreatic inflammatory change. SPLEEN: Unremarkable.? ADRENAL GLANDS: Unremarkable.? KIDNEYS AND URETERS: The kidneys are normal in size, shape, and attenuation. No hydronephrosis, hydroureter, or calculi seen. No perinephric stranding. ? BLADDER: Unremarkable.? GASTROINTESTINAL TRACT: No dilated loops of large or small bowel are present. No free air or free fluid within the peritoneal cavity is seen. Patient is status post gastric surgery with no adjacent fluid collection. No pericolonic inflammatory change is seen. The appendix appears unremarkable. ABDOMINAL WALL: Within the subcutaneous tissues of the anterior abdominal wall just peripheral to the musculature there is prominent fat stranding present as well as what appears to be a fistula to skin about the right lower abdomen. There appears to be a thin liquefied collection with some gas within it adjacent to the muscle with no intervening fat plane. This measures approximately 7 mm in AP dimension along the entire with the anterior abdominal wall for approximately 18 cm. LYMPH NODES: No lymphadenopathy is seen however there are numerous nonenlarged lymph nodes present adjacent to the collection. No intraperitoneal lymphadenopathy. VASCULAR: Unremarkable. PELVIC VISCERA: Unremarkable.? OSSEOUS STRUCTURES: Unremarkable.? CT/CT abdomen pelvis w IV con IMPRESSION: No significant intraperitoneal abnormality appreciated. ? Subcutaneous anterior abdominal wall collection with edema and gas decompressing to the skin through a fistula within the right lower quadrant.? ? Fleischner guidelines were followed. <Jania Keene NP - Last Filed: 08/16/22 18:29> Independent Historian Clinical information obtained from an independent historian. History obtained from or confirmed by: Friend <Jania Keene NP - Last Filed: 08/16/22 18:29> External Record Review External record reviewed: Office record (General surgery notes) <Jania Keene NP - Last Filed: 08/16/22 18:29> Discharge Plan Discharge Clinical Impression: Anemia, Dehiscence of external surgical wound <GARIMA Fernandez - Last Filed: 08/16/22 12:01> Patient Disposition: Admitted As Inpatient <GARIMA Fernandez - Last Filed: 08/16/22 12:01>
[2022-08-16 13:31] LABS: MANUAL DIFF FLAG NO
[2022-08-16 13:34] LABS: Basophils Percent Auto 0.3 % (0-2); Eosinophils Percent Auto 0.2 % (0-4); Hematocrit 30.9 % (37.0-47.0); Hemoglobin 9.8 g/dl (12.0-16.0); Imm Gran Abs Auto 0.03 X10*3/uL (0.00-0.03); Imm Gran Pct Auto 0.3 % (0.0-0.4); Lymphocytes Absolute Auto 1.4 X10*3/uL (1.2-4.9); Lymphocytes Percent Auto 13.4 % (20-40); Mean Corpuscular HGB Conc 31.7 g/dl (31.0-35.0); Mean Corpuscular Hemoglobin 26.6 pg (27.0-33.0); Mean Corpuscular Volume 83.7 fL (80.0-98.0); Mean Platelet Volume 10.2 fL (9.4-12.3); Monocytes Absolute Auto 0.8 X10*3/uL (0.1-1.2); Monocytes Percent Auto 7.5 % (2-11); Neutrophils Percent Auto 78.3 % (45-73); Platelet Count 378 X10*3/uL (160-400); Red Blood Count 3.69 X10*6/uL (4.20-5.50); Red Cell Distribution Width 13.2 % (11.0-16.0); White Blood Count 10.2 X10*3/uL (4.8-10.8)
[2022-08-16 13:50] LABS: Lactic Acid 0.9 mmol/L (0.5-2.0)
[2022-08-16 13:55] LABS: Alanine Aminotransferase 10 U/L (0-31); Albumin Level 3.6 g/dL (3.5-5.0); Alkaline Phosphatase 86 U/L (39-117); Anion Gap 16 (12-20); Aspartate Amino Transferase 10 U/L (5-31); Bilirubin Total 0.4 mg/dL (0.0-1.0); Blood Urea Nitrogen 14 mg/dL (9-16); Calcium 9.2 mg/dL (8.4-10.2); Carbon Dioxide 24 mmol/L (22-29); Chloride 104 mmol/L (96-108); Creatinine Clr Calc Pharmacy 77.7; Estimated Glomerular Filt Rate > 60; Glucose Random 100 mg/dL (60-115); Potassium 3.9 mmol/L (3.3-5.1); Sodium 140 mmol/L (135-145); Total Protein 6.7 g/dL (6.5-8.0)
[2022-08-16 14:08] LABS: C Reactive Protein 36.96 mg/dL (< or = 0.50)
[2022-08-16 14:11] LABS: Influenza A PCR NEGATIVE (Negative); Influenza B PCR NEGATIVE (Negative); Resp Syncy Virus RNA Qual PCR NEGATIVE (Negative); SARS COV2 PCR INHOUSE NEGATIVE (Negative)
[2022-08-16 14:14] LABS: Erythrocyte Sedimentation Rate 101 MM/HR (0-20)
[2022-08-16] MEDS: iohexoL 350 MG/ML 100 ML INFUS..BTL IV (16:40)
[2022-08-16] MEDS: Piperacillin Sodium/Tazobactam 3.375 GM in 0.9 % Sodium Chloride 50 ML IV ×2 (16:41→23:35)
--- NOTE | 2022-08-16 18:25 | PHA.MEDREC ---
Pharmacy Consult ? Medication Reconciliation Pharmacy has completed the medication reconciliation. Patient also speaks greek. Confirmed meds with patient.
[2022-08-16] MEDS: 0.9 % Sodium Chloride 1,000 ML 100 ML IVCONT (18:52)
--- NOTE | 2022-08-16 19:00 | PC.NURSE ---
pt alert oriented x4, NS 0.9% infusing at 100ml/hour via 20G periph. IV. pt verbalizes she is going to be NPO at midnight per hospitalist. calm and cooperative, dtr at bedside aware of plan of care call strange within reach. Wctm
[2022-08-16] MEDS: Acetaminophen 325 MG TABLET 650 MG PO (20:53)
--- NOTE | 2022-08-16 22:14 | PC.NURSE ---
pt currently complaining of pain- was offered MsO4 by Ed provider, initially she declined, but would like to try something other than APAP. REMEDIOS Diez reached out to MD Addison for analgesia orders. Called [facility] to give report spoke with CABLE BRAIDER Lana states pt is assigned to REMEDIOS Dupont and she will call back for report (ext:[phone]). pt was able to eat full meal and is resting comfortably at this time. NS infusing via 20g IV @ 100ml/hour.
[2022-08-16 22:20] VITALS: BP 115/63; PULSE 93; RESP 16; TEMP 36.7; O2SAT 96
[2022-08-16] MEDS: oxyCODONE HCl Immed Release 5 MG TABLET PO (22:32)
--- NOTE | 2022-08-16 22:36 | PC.NURSE ---
oxycodone 5mg given according to MAR- pt sts lower abdominal pain now 10 pain
--- NOTE | 2022-08-16 22:45 | PC.NURSE ---
report given to [facility] REMEDIOS Dupont
[2022-08-16 23:10] VITALS: BMI 31.1
[2022-08-16 23:15] VITALS: BP 126/64; PULSE 80; RESP 22; TEMP 36.2; O2SAT 96
[2022-08-16] MEDS: 0.9 % Sodium Chloride Flush 3 ML SYRINGE IVFLUSH (23:31)
[2022-08-17] VITALS (10 sets, daily range): BP systolic 115–147; BP diastolic 61–74; PULSE 66–95; RESP 15–18; TEMP 35.9–36.9; O2SAT 95–99
[2022-08-17] MEDS: oxyCODONE HCl Immed Release 5 MG TABLET PO ×2 (02:58→08:34)
[2022-08-17] MEDS: 0.9 % Sodium Chloride 1,000 ML 100 ML IVCONT (04:29)
[2022-08-17] MEDS: Piperacillin Sodium/Tazobactam 3.375 GM in 0.9 % Sodium Chloride 50 ML IV ×3 (04:32→18:42)
[2022-08-17] MEDS: Omeprazole 20 MG CAPSULE.DR 40 MG PO (05:36)
[2022-08-17 06:18] LABS: MANUAL DIFF FLAG NO
[2022-08-17 06:23] LABS: Basophils Absolute Auto 0.1 X10*3/uL (0.0-0.2); Basophils Percent Auto 0.8 % (0-2); Eosinophils Absolute Auto 0.2 X10*3/uL (0.0-0.4); Eosinophils Percent Auto 1.9 % (0-4); Hematocrit 29.7 % (37.0-47.0); Hemoglobin 9.3 g/dl (12.0-16.0); Imm Gran Abs Auto 0.03 X10*3/uL (0.00-0.03); Imm Gran Pct Auto 0.4 % (0.0-0.4); Lymphocytes Absolute Auto 1.9 X10*3/uL (1.2-4.9); Lymphocytes Percent Auto 24.1 % (20-40); Mean Corpuscular HGB Conc 31.3 g/dl (31.0-35.0); Mean Corpuscular Hemoglobin 26.5 pg (27.0-33.0); Mean Corpuscular Volume 84.6 fL (80.0-98.0); Mean Platelet Volume 10.4 fL (9.4-12.3); Monocytes Absolute Auto 0.6 X10*3/uL (0.1-1.2); Monocytes Percent Auto 7.1 % (2-11); Neutrophils Absolute Auto 5.2 x10*3/uL (2.0-8.3); Neutrophils Percent Auto 65.7 % (45-73); Platelet Count 345 X10*3/uL (160-400); Red Blood Count 3.51 X10*6/uL (4.20-5.50); Red Cell Distribution Width 13.2 % (11.0-16.0); White Blood Count 7.9 X10*3/uL (4.8-10.8)
[2022-08-17 07:00] LABS: Anion Gap 13 (12-20); Blood Urea Nitrogen 16 mg/dL (9-16); Calcium 8.4 mg/dL (8.4-10.2); Carbon Dioxide 25 mmol/L (22-29); Chloride 107 mmol/L (96-108); Creatinine Clr Calc Pharmacy 85.4; Estimated Glomerular Filt Rate > 60; Glucose Random 83 mg/dL (60-115); Potassium 3.8 mmol/L (3.3-5.1); Sodium 141 mmol/L (135-145)
[2022-08-17] MEDS: Acetaminophen 325 MG TABLET 650 MG PO ×2 (08:33→18:43)
[2022-08-17] MEDS: Cyanocobalamin (Vitamin B-12) 1,000 MCG TABLET 1000 MCG PO (08:34)
[2022-08-17] MEDS: Cholecalciferol (Vitamin D3) 25 MCG TABLET PO (08:34)
[2022-08-17] MEDS: FLUoxetine HCl 20 MG CAPSULE PO ×2 (08:34→20:26)
--- NOTE | 2022-08-17 10:13 | MHC.CM.PN ---
PATIENT LIVES WITH HER 22-YEAR-OLD DISABLED SON (PATIENT'S DAUGHTER IS CURRENTLY STAYING AT THE HOME WITH HIM) RECENTLY PURCHASED A ROLLATOR. SHE HAS BEEN COVID VACCINATED X 2 AND 1 BOOSTER. NO VNA OR NATIONAL [employer]IVE [employer]ODUC[employer] SERVICES. HCP IS ON FILE AND VERIFIED. SHE IS HOPING FOR VNA SERVICES AT TIME OF DC. CASE MANAGEMENT FOLLOWING FOR DC NEEDS
--- NOTE | 2022-08-17 10:19 | W.PM.OPN ---
Operative Note Operative Note Date of Service: 08/17/22 Narrative: Preop diagnosis--abdominal wall abscess and cellulitis Postop diagnosis--same Procedure--incision and drainage of abdominal wall abscesses Surgeon--Azael Anesthesia--vijaya The patient is a 52-year-old female who underwent abdominoplasty and mastopexy bilaterally in [place] about a month ago and now comes in with cellulitis and abscess of her abdominal wall area. Plan is to carried incision and drainage of this. Procedure-- The patient was brought to the operative room and under Anesthesia guidance was sedated she had her abdomen prepped and draped in standard surgical fashion. An area on the right side was already open and draining and this area was numbed up with local and along the abdominoplasty incision site about a 4 cm area was opened and dissected down through the fatty tissue and there was drainage of just some fluid. The area that was firm and tender on the left side which showed undrained collection on CT was then numbed up and opened up on the left incision site. About 3 cm was opened here. Once again we got some fluid that did not look purulent. Deeper fatty tissue looked healthy and the wounds did not go past the posterior abdominal wall muscle and fascia. The 2 did connect with the tissue here not being incorporated into the fascia and so the area was packed after irrigation. There was 1 packing that went from the left to the right side through the tunnel and another the PAC just on the left side. Dry gauzes were placed and secured. Patient tolerated the procedure well. The end of the case all sponge instrument needle counts are correct estimated blood loss was minimal no pathological specimens are sent she returned stable to recovery room
--- NOTE | 2022-08-17 11:46 | PM.HPGS ---
History of Present Illness History of Present Illness Date of Service: 08/17/22 Chief complaint: abdominal wall infection Narrative: Rosa Bates is a 52 year old female Who underwent mastopexy bilaterally as well as abdominoplasty in [place] in July 21. Postoperatively she has been communicating with her surgeons by tax but have not received any reply from them the last several days. She saw the PA the general surgery office on the 05 of August and abdominal plasty drains were removed. The patient says over the last 2 3 days she has been having discharge from from bili cassette abdominal wound and temperatures up to 102. She called me and antibiotics were prescribed and she was encouraged to come to the emergency room but could not because of her lack of childcare. She came in last night with more drainage. In the emergency room her white count was normal there was some drainage coming from the abdominal wound and she was afebrile. She was started with IV antibiotics and admitted. She is a Jehovah Witness she had a gastric bypass surgery done about 2 years ago here by Dr. 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 Mother Depression Anxiety Asthma Diabetes Hypertension Brother Bipolar 1 disorder Sister No problems noted. Sister No problems noted. Sister No problems noted. Son No problems noted. Son No problems noted. Daughter No problems noted. Maternal Grandmother Lymphoma Surgical History Surgical History History of abdominoplasty (07/21/22) History of brain surgery History of mandibular surgery Hx of chest tube placement Hx of hysterectomy Social History Social History Household Members: Children Housing: House Do you presently have visiting nurse or other home services: No Alcohol intake: never Patient Tobacco Use Status: Never used Tobacco e-Cigarette/Vaping Use: Never Used Second Hand Smoke Exposure: No Use of substances other than those prescribed or required for medical reasons: No Currently Displaying Signs/Symptoms of Drug Intoxication Withdrawal: No Have you been hit, kicked, punched, or otherwise hurt by someone within the past year? If so, by whom?: No Do you feel safe in your current relationship?: Yes Is there a partner from a previous relationship who is making you feel unsafe now?: No Are you made to feel afraid or neglected: No Holiness Healthcare Practices: Jehovah witness Advance Directives: Yes Advance Directives on File: Yes Advance Directives Date on File: 08/16/22 Do you have thoughts of harming others: None Do you have a plan to hurt others: No Plan Recently lost weight without trying: No Eating poorly because of decreased appetite: No Nutrition Risks: No Nutritional Risk Patient : No : No Poor oral hygiene: No service: No Current occupational status: employed Current occupational exposures/hazards: No Cognitive needs: No Hearing needs: No Vision needs: Yes Meds Allergies Allergy/AdvReac Type Severity Reaction Status Date / Time lisinopril [LISINOPRIL] Allergy Intermediate SWELLING/BLURRY Verified 08/05/22 09:49 VISION house dust Allergy Mild Hives Verified 08/05/22 09:54 Active Medications: Current Medications Acetaminophen (Acetaminophen 325 Mg Tablet) 650 mg PO QID [facility] Last Admin: 08/17/22 08:33 Dose: 650 mg Acetaminophen/Butalbital/Caffeine (Butalb/Acetamin/Caff 50/325/40 Tablet) 1 tab PO Q8H PRN PRN Reason: Migraine Headache Cyanocobalamin (Cyanocobalamin (Vitamin B-12) 1,000 Mcg Tablet) 1,000 mcg PO DAILY [facility] Last Admin: 08/17/22 08:34 Dose: 1,000 mcg Fluoxetine HCl (Fluoxetine Hcl 20 Mg Capsule) 20 mg PO BID [facility] Last Admin: 08/17/22 08:34 Dose: 20 mg Sodium Chloride (Ns) 1,000 mls @ 100 mls/hr IVCONT .Q10H [facility] Last Admin: 08/17/22 04:29 Dose: 100 mls/hr Piperacillin Sod/Tazobactam (Sod 3.375 gm/ Sodium Chloride) 50 mls @ 100 mls/hr IV Q6H [facility] Last Admin: 08/17/22 10:34 Dose: 100 mls/hr Lorazepam (Lorazepam 0.5 Mg Tablet) 0.5 mg PO DAILY PRN PRN Reason: Anxiety Omeprazole (Omeprazole 20 Mg Capsule.Dr) 40 mg PO DAILY@629 [facility] Last Admin: 08/17/22 05:36 Dose: 40 mg Oxycodone HCl (Oxycodone Hcl Immed Release 5 Mg Tablet) 5 mg PO Q4H PRN PRN Reason: Pain, Moderate (Pain Scale 4-6 Last Admin: 08/17/22 08:34 Dose: 5 mg Pharmacy Consult (Consult Rx Perform Med Rec) 1 each MISCELLANE ONCE PRN PRN Reason: Consult order Sodium Chloride (0.9 % Sodium Chloride Flush 3 Ml Syringe) 3 ml IVFLUSH [facility] Last Admin: 08/17/22 07:30 Dose: Not Given Trazodone HCl (Trazodone Hcl 50 Mg Tablet) 150 mg PO BEDTIME PRN PRN Reason: insomnia Vitamin D (Cholecalciferol (Vitamin D3) 25 Mcg Tablet) 25 mcg PO DAILY [facility] Last Admin: 08/17/22 08:34 Dose: 25 mcg Home Medications Medication Instructions Recorded Confirmed Last Taken Type acetaminophen 650 mg 1,300 mg PO Q8H PRN Pain 08/16/22 08/16/22 08/16/22 09:00 History tablet,extended release mhcuypbnob-fiubxecgqkwpp-hnlnmqcw 1 cap PO Q8H PRN Migraine Headache 08/16/22 08/16/22 Unknown History 50 mg-300 mg-40 mg capsule fluoxetine 20 mg capsule 1 cap PO BID 08/16/22 08/16/22 08/15/22 History lorazepam 0.5 mg tablet 0.5 mg PO DAILY PRN Anxiety 08/16/22 08/16/22 08/15/22 History pantoprazole 40 mg tablet,delayed 40 mg PO DAILY@0630 08/16/22 08/16/22 08/16/22 History release trazodone 150 mg tablet 1 tab PO BEDTIME PRN insomnia 08/16/22 08/16/22 08/15/22 History Physical Exam Vital Signs: Vital Signs: Last Vital Signs Temp 96.7 F L 08/17/22 07:52 Pulse 74 08/17/22 07:52 Resp 16 08/17/22 07:52 BP 133/74 08/17/22 07:52 Pulse Ox 98 08/17/22 07:52 O2 Del Method 08/17/22 07:52 BMI result Body Mass Index 31.1 Const: General: cooperative, healthy appearing, comfortable, no acute distress and well developed Nutritional Appearance: obese Orientation/consciousness: oriented to person, oriented to place and oriented to time HEENT: Head: Yes normal to inspection Eyes: General: appearance normal, both eyes and all related structures Resp: Effort & Inspection: normal respiratory effort Auscultation: clear to auscultation bilaterally Cardio: Rate: regular rate Rhythm: regular rhythm GI: Other: abdomen is soft nontender nondistended active bowel sounds C skin section for incision description Skin: Other: patient has a large abdominal plasty incision along the lower abdomen. The right side has a small opening in there is serous drainage from here. The tissue surrounding feels nice and soft. With more manipulation some purulent drainage is noted. The left side of the incision is firmer and erythematous and more tender to palpation. The actual incision site is intact here Neuro: General: oriented to person, oriented to place and oriented to time Extrem: General: Yes normal to inspection Psych: Appearance: grossly normal and well kempt Attitude: cooperative Thought process: Normal thought process present Thought content: Normal thought content present Insight: Good insight present (Psych) Judgement: Good judgement present (Psych) Results Results Labs: Short CBC 08/16/22 08/17/22 Range/Units 13:17 05:47 WBC 10.2 7.9 (4.8-10.8) X10*3/uL Hgb 9.8 L D 9.3 L (12.0-16.0) g/dl Hct 30.9 L D 29.7 L (37.0-47.0) % Plt Count 378 D 345 (160-400) X10*3/uL BMP 08/16/22 08/17/22 13:17 05:47 Sodium 140 141 Potassium 3.9 3.8 Chloride 104 107 Carbon Dioxide 24 25 BUN 14 16 Creatinine 0.77 0.70 Calcium 9.2 8.4 D Liver Function 08/16/22 Range/Units 13:17 Total Bilirubin 0.4 (0.0-1.0) mg/dL AST 10 D (5-31) U/L ALT 10 (0-31) U/L Alkaline Phosphatase 86 (39-117) U/L Albumin 3.6 (3.5-5.0) g/dL Assessment and Plan (1) Dehiscence of external surgical wound: Status: Acute Plan 52-year-old female who is about 1 month out of mastopexy and abdominoplasty carried out in [place] and who about a week and a half ago had drains removed from the abdominal plasty for procedure. She now comes in with a cellulitis and probable small abscess of the abdominal wall. Plan is to admit IV antibiotics and take to OR and just open up the left side debrided as necessary irrigate and packed. Risks and benefits were discussed with the patient including but not limited to bleeding infection sepsis and she wants to proceed. She is a Jehovah Witness and is concern for blood loss but I think that this procedure is low risk for any significant blood loss. There does not appear to be any intra-abdominal issues Time Spent With Patient Time: Total time managing care of this patient today ____ minutes. Quality Stroke Does the patient have a stroke diagnosis?: No VTE Prior VTE?: No VTE Risk Level:: Surgical - low VTE Device Contraindication: N/A - Device Ordered VTE Drug Contraindication: Treatment Not Indicated Procedures Date of Service Date of Service: 08/17/22
--- NOTE | 2022-08-17 16:09 | P.CONAN_ITS ---
[facility] Active Problems Active Problems: All Active Problems (Updated 08/16/22 @ 18:29 by Jania Keene NP) Anemia (Acute) Dehiscence of external surgical wound (Acute) Vitamin B 12 deficiency (Acute) History of mastopexy (Acute) H/O abdominoplasty (Acute) Obesity (BMI 30.0-34.9) (Acute) Excess skin (Acute) Otitis externa (Acute) Colon cancer screening (Acute) Annual physical exam (Acute) Generalized anxiety disorder (Acute) Constipation (Acute) Status post laparoscopic sleeve gastrectomy (Acute) Essential hypertension (Acute) PVC (premature ventricular contraction) (Acute) Overweight (BMI 25.0-29.9) (Acute) Migraine (Acute) Type 2 diabetes mellitus with hyperglycemia (Acute) 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 Mother Depression Anxiety Asthma Diabetes Hypertension Brother Bipolar 1 disorder Sister No problems noted. Sister No problems noted. Sister No problems noted. Son No problems noted. Son No problems noted. Daughter No problems noted. Maternal Grandmother Lymphoma Family history of problems with anesthesia: No Surgical History Surgical History History of abdominoplasty (07/21/22) History of brain surgery History of mandibular surgery Hx of chest tube placement Hx of hysterectomy History of Problems with Anesthesia: No Social History Social History Household Members: Children Housing: House Do you presently have visiting nurse or other home services: No Alcohol intake: never Patient Tobacco Use Status: Never used Tobacco e-Cigarette/Vaping Use: Never Used Second Hand Smoke Exposure: No Use of substances other than those prescribed or required for medical reasons: No Currently Displaying Signs/Symptoms of Drug Intoxication Withdrawal: No Have you been hit, kicked, punched, or otherwise hurt by someone within the past year? If so, by whom?: No Do you feel safe in your current relationship?: Yes Is there a partner from a previous relationship who is making you feel unsafe now?: No Are you made to feel afraid or neglected: No Shinto Healthcare Practices: Jehovah witness Advance Directives: Yes Advance Directives on File: Yes Advance Directives Date on File: 08/16/22 Do you have thoughts of harming others: None Do you have a plan to hurt others: No Plan Recently lost weight without trying: No Eating poorly because of decreased appetite: No Nutrition Risks: No Nutritional Risk Patient : No : No Poor oral hygiene: No service: No Current occupational status: employed Current occupational exposures/hazards: No Cognitive needs: No Hearing needs: No Vision needs: Yes Meds Allergies Allergy/AdvReac Type Severity Reaction Status Date / Time lisinopril [LISINOPRIL] Allergy Intermediate SWELLING/BLURRY Verified 08/05/22 09:49 VISION house dust Allergy Mild Hives Verified 08/05/22 09:54 Active Medications: Current Medications Acetaminophen (Acetaminophen 325 Mg Tablet) 650 mg PO QID [facility] Last Admin: 08/17/22 15:40 Dose: Not Given Acetaminophen/Butalbital/Caffeine (Butalb/Acetamin/Caff 50/325/40 Tablet) 1 tab PO Q8H PRN PRN Reason: Migraine Headache Cyanocobalamin (Cyanocobalamin (Vitamin B-12) 1,000 Mcg Tablet) 1,000 mcg PO DAILY [facility] Last Admin: 08/17/22 08:34 Dose: 1,000 mcg Fluoxetine HCl (Fluoxetine Hcl 20 Mg Capsule) 20 mg PO BID [facility] Last Admin: 08/17/22 08:34 Dose: 20 mg Sodium Chloride (Ns) 1,000 mls @ 100 mls/hr IVCONT .Q10H [facility] Last Admin: 08/17/22 15:39 Dose: Not Given Piperacillin Sod/Tazobactam (Sod 3.375 gm/ Sodium Chloride) 50 mls @ 100 mls/hr IV Q6H [facility] Last Infusion: 08/17/22 12:21 Dose: Infused Lorazepam (Lorazepam 0.5 Mg Tablet) 0.5 mg PO DAILY PRN PRN Reason: Anxiety Omeprazole (Omeprazole 20 Mg Capsule.Dr) 40 mg PO DAILY@0630 [facility] Last Admin: 08/17/22 05:36 Dose: 40 mg Oxycodone HCl (Oxycodone Hcl Immed Release 5 Mg Tablet) 5 mg PO Q4H PRN PRN Reason: Pain, Moderate (Pain Scale 4-6 Last Admin: 08/17/22 08:34 Dose: 5 mg Pharmacy Consult (Consult Rx Perform Med Rec) 1 each MISCELLANE ONCE PRN PRN Reason: Consult order Sodium Chloride (0.9 % Sodium Chloride Flush 3 Ml Syringe) 3 ml IVFLUSH QSHIFT [facility] Last Admin: 08/17/22 07:30 Dose: Not Given Trazodone HCl (Trazodone Hcl 50 Mg Tablet) 150 mg PO BEDTIME PRN PRN Reason: insomnia Vitamin D (Cholecalciferol (Vitamin D3) 25 Mcg Tablet) 25 mcg PO DAILY [facility] Last Admin: 08/17/22 08:34 Dose: 25 mcg Home Medications Medication Instructions Recorded Confirmed Last Taken Type acetaminophen 650 mg 1,300 mg PO Q8H PRN Pain 08/16/22 08/16/22 08/16/22 09:00 History tablet,extended release ompqilzdbs-uzcadkuzkxgoo-rbzuhadd 1 cap PO Q8H PRN Migraine Headache 08/16/22 08/16/22 Unknown History 50 mg-300 mg-40 mg capsule fluoxetine 20 mg capsule 1 cap PO BID 08/16/22 08/16/22 08/15/22 History lorazepam 0.5 mg tablet 0.5 mg PO DAILY PRN Anxiety 08/16/22 08/16/22 08/15/22 History pantoprazole 40 mg tablet,delayed 40 mg PO DAILY@0630 08/16/22 08/16/22 08/16/22 History release trazodone 150 mg tablet 1 tab PO BEDTIME PRN insomnia 08/16/22 08/16/22 08/15/22 History Exam Exam Date and Time: August 17, 2022 160 Height,Weight and Vital Signs: Height 5 ft Weight 72.5 kg Last Vital Signs Temp 96.7 F L 08/17/22 07:52 Pulse 74 08/17/22 07:52 Resp 16 08/17/22 07:52 BP 133/74 08/17/22 07:52 Pulse Ox 98 08/17/22 07:52 O2 Del Method 08/17/22 07:52 Pertinent Lab Results Pertinent Lab Results: Laboratory Tests 08/16/22 08/16/22 08/16/22 13:17 13:17 13:17 WBC 10.2 RBC 3.69 L D Hgb 9.8 L D Hct 30.9 L D MCV 83.7 MCH 26.6 L MCHC 31.7 RDW 13.2 Plt Count 378 D MPV 10.2 Immature Gran % (Auto) 0.3 Neut % (Auto) 78.3 H Lymph % (Auto) 13.4 L [place] % (Auto) 7.5 Eos % (Auto) 0.2 Baso % (Auto) 0.3 Lymph # (Auto) 1.4 [place] # (Auto) 0.8 Eos # (Auto) 0.0 Baso # (Auto) 0.0 Abs Immat Gran (auto) 0.03 Absolute Neuts (auto) 8.0 Absolute Nucleated RBC 0.000 Nucleated RBC % (auto) 0.0 ESR 101 H Sodium 140 Potassium 3.9 Chloride 104 Carbon Dioxide 24 Anion Gap 16 BUN 14 Creatinine 0.77 Estim Creat Clear Calc 77.7 Estimated GFR > 60 Random Glucose 100 Lactic Acid Calcium 9.2 Magnesium 2.0 Total Bilirubin 0.4 AST 10 D ALT 10 Alkaline Phosphatase 86 C-Reactive Protein 36.96 H Total Protein 6.7 Albumin 3.6 Influenza Type A (PCR) Influenza Type B (PCR) RSV RNA Qual (PCR) SARS-CoV-2 RNA (RT-PCR) 08/16/22 08/16/22 08/17/22 13:17 13:17 05:47 WBC 7.9 RBC 3.51 L Hgb 9.3 L Hct 29.7 L MCV 84.6 MCH 26.5 L MCHC 31.3 RDW 13.2 Plt Count 345 MPV 10.4 Immature Gran % (Auto) 0.4 Neut % (Auto) 65.7 Lymph % (Auto) 24.1 [place] % (Auto) 7.1 Eos % (Auto) 1.9 Baso % (Auto) 0.8 Lymph # (Auto) 1.9 [place] # (Auto) 0.6 Eos # (Auto) 0.2 Baso # (Auto) 0.1 Abs Immat Gran (auto) 0.03 Absolute Neuts (auto) 5.2 Absolute Nucleated RBC 0.000 Nucleated RBC % (auto) 0.0 ESR Sodium Potassium Chloride Carbon Dioxide Anion Gap BUN Creatinine Estim Creat Clear Calc Estimated GFR Random Glucose Lactic Acid 0.9 Calcium Magnesium Total Bilirubin AST ALT Alkaline Phosphatase C-Reactive Protein Total Protein Albumin Influenza Type A (PCR) NEGATIVE Influenza Type B (PCR) NEGATIVE RSV RNA Qual (PCR) NEGATIVE SARS-CoV-2 RNA (RT-PCR) NEGATIVE 08/17/22 05:47 WBC RBC Hgb Hct MCV MCH MCHC RDW Plt Count MPV Immature Gran % (Auto) Neut % (Auto) Lymph % (Auto) [place] % (Auto) Eos % (Auto) Baso % (Auto) Lymph # (Auto) [place] # (Auto) Eos # (Auto) Baso # (Auto) Abs Immat Gran (auto) Absolute Neuts (auto) Absolute Nucleated RBC Nucleated RBC % (auto) ESR Sodium 141 Potassium 3.8 Chloride 107 Carbon Dioxide 25 Anion Gap 13 BUN 16 Creatinine 0.70 Estim Creat Clear Calc 85.4 Estimated GFR > 60 Random Glucose 83 Lactic Acid Calcium 8.4 D Magnesium Total Bilirubin AST ALT Alkaline Phosphatase C-Reactive Protein Total Protein Albumin Influenza Type A (PCR) Influenza Type B (PCR) RSV RNA Qual (PCR) SARS-CoV-2 RNA (RT-PCR) Airway Mallampati Class: II TM Dist: >3cm Neck ROM: Full Assessment and Plan Assessment Anesthesia Assessment: Anesthesia Plan Discussed and Chart Reviewed Final Anesthetic Review Family History of Problems with Anesthesia: No History of Problems with Anesthesia: No NPO: Yes ASA Class: III and Emergency Final Preanesthetic Review: No Changes in Pt Med Stat, Meds/Allgs Chart Reviewed and Consent Obtained/Reviewed Patient Risk: Intermediate Procedure Risk: Low Anesthetic Plan Anesthetic Plan: MAC: Disposition: Standard PACU
[2022-08-17] MEDS: 0.9 % Sodium Chloride Flush 3 ML SYRINGE IVFLUSH (20:25)
[2022-08-18] MEDS: Morphine Sulfate 2 MG/ML CARTRIDGE IVPUSH ×5 (01:23→20:20)
[2022-08-18] MEDS: traZODone HCL 50 MG TABLET 150 MG PO (01:28)
[2022-08-18] MEDS: Piperacillin Sodium/Tazobactam 3.375 GM in 0.9 % Sodium Chloride 50 ML IV ×4 (01:29→20:26)
[2022-08-18] MEDS: 0.9 % Sodium Chloride 1,000 ML 100 ML IVCONT ×2 (02:23→10:03)
[2022-08-18 03:47] VITALS: BP 133/68; PULSE 66; RESP 16; TEMP 36.5; O2SAT 94
[2022-08-18] MEDS: Omeprazole 20 MG CAPSULE.DR 40 MG PO (05:54)
[2022-08-18 08:00] VITALS: BP 146/71; PULSE 58; RESP 18; TEMP 36.3; O2SAT 95
--- NOTE | 2022-08-18 09:03 | P.PNGS_ITS ---
Subjective Subjective Date of Service: 08/18/22 <Katherine Cornell PA-C - Last Filed: 08/18/22 10:28> 08/18/22 <Hany Rowe MD - Last Filed: 08/18/22 09:14> Interval history: Feeling a little better this morning. Requiring morphine for pain. <Katherine Cornell PA-C - Last Filed: 08/18/22 10:28> Physical Exam Vital Signs: Vital Signs: Last Vital Signs Temp 97.4 F 08/18/22 08:00 Pulse 58 08/18/22 08:00 Resp 18 08/18/22 08:00 BP 146/71 H 08/18/22 08:00 Pulse Ox 95 08/18/22 08:00 O2 Del Method 08/18/22 08:00 O2 Flow Rate 2 08/17/22 17:26 BMI result Body Mass Index 31.1 <FABRICIO Laguerre Last Filed: 08/18/22 10:28> Const: General: comfortable, no acute distress and alert <Katherine Cornell PA-C - Last Filed: 08/18/22 10:28> Orientation/consciousness: patient oriented x3 <Katherine Cornell PA-C - Last Filed: 08/18/22 10:28> Resp: Effort & Inspection: normal respiratory effort <FABRICIO Laguerre Last Filed: 08/18/22 10:28> Cardio: Rate: regular rate <Katherine Cornell PA-C - Last Filed: 08/18/22 10:28> GI: Other: s/p I&D on left and right aspects of lateral abdominoplasty incision; packing in place which was advanced; significant edema and erythema of left flank/hip; umbilicus clean appearing <Katherine Cornell PA-C - Last Filed: 08/18/22 10:28> Inspection: No distended <FABRICIO Laguerre Last Filed: 08/18/22 10:28> Skin: General skin exam: no rashes or lesions noted <FABRICIO Laguerre Last Filed: 08/18/22 10:28> Neuro: General: patient oriented x3 and moves all extremities <Katherine Cornell PA-C - Last Filed: 08/18/22 10:28> Extrem: General: Yes no clubbing, cyanosis or edema <Katherine Cronell PA-C - Last Filed: 08/18/22 10:28> Objective Data Active Medications Acetaminophen (Acetaminophen 325 Mg Tablet) 650 mg PO QID [facility] Last Admin: 08/18/22 01:36 Dose: Not Given Documented By: MARC Non-Admin Reason: Patient Refused Acetaminophen/Butalbital/Caffeine (Butalb/Acetamin/Caff 50/325/40 Tablet) 1 tab PO Q8H PRN PRN Reason: Migraine Headache Cyanocobalamin (Cyanocobalamin (Vitamin B-12) 1,000 Mcg Tablet) 1,000 mcg PO DAILY [facility] Last Admin: 08/17/22 08:34 Dose: 1,000 mcg Documented By: AUGUSTO Fentanyl (Fentanyl Citrate/Pf 100 Mcg/2 Ml Vial) 50 mcg IVPUSH Q5M PRN; Protocol PRN Reason: Pain, Severe (Pain Scale 7-10) Fluoxetine HCl (Fluoxetine Hcl 20 Mg Capsule) 20 mg PO BID [facility] Last Admin: 08/17/22 20:26 Dose: 20 mg Documented By: MARC Sodium Chloride (Ns) 1,000 mls @ 100 mls/hr IVCONT .Q10H [facility] Last Admin: 08/18/22 02:23 Dose: 100 mls/hr Documented By: MARC Piperacillin Sod/Tazobactam (Sod 3.375 gm/ Sodium Chloride) 50 mls @ 100 mls/hr IV Q6H [facility] Lorazepam (Lorazepam 0.5 Mg Tablet) 0.5 mg PO DAILY PRN PRN Reason: Anxiety Morphine Sulfate (Morphine Sulfate 2 Mg/Ml Cartridge) 2 mg IVPUSH Q4H PRN; Protocol PRN Reason: Pain, Severe (Pain Scale 7-10) Last Admin: 08/18/22 06:05 Dose: 2 mg Documented By: MARC Omeprazole (Omeprazole 20 Mg Capsule.Dr) 40 mg PO DAILY@0630 [facility] Last Admin: 08/18/22 05:54 Dose: 40 mg Documented By: MARC Ondansetron HCl (Ondansetron Hcl 4 Mg/2 Ml Vial) 4 mg IVPUSH ONCE PRN PRN Reason: Nausea and Vomiting Oxycodone HCl (Oxycodone Hcl Immed Release 5 Mg Tablet) 5 mg PO Q4H PRN PRN Reason: Pain, Moderate (Pain Scale 4-6 Last Admin: 08/17/22 08:34 Dose: 5 mg Documented By: AUGUSTO Oxycodone HCl (Oxycodone Hcl Immed Release 5 Mg Tablet) 5 mg PO ONCE PRN PRN Reason: Pain, Severe (Pain Scale 7-10) Oxycodone HCl (Oxycodone Hcl Immed Release 5 Mg Tablet) 10 mg PO Q4H PRN PRN Reason: Pain, Moderate (Pain Scale 4-6 Pharmacy Consult (Consult Rx Perform Med Rec) 1 each MISCELLANE ONCE PRN PRN Reason: Consult order Sodium Chloride (0.9 % Sodium Chloride Flush 3 Ml Syringe) 3 ml IVFLUSH QSHIFT [facility] Last Admin: 08/17/22 20:25 Dose: 3 ml Documented By: MARC Trazodone HCl (Trazodone Hcl 50 Mg Tablet) 150 mg PO BEDTIME PRN PRN Reason: insomnia Last Admin: 08/18/22 01:28 Dose: 150 mg Documented By: MARC Vitamin D (Cholecalciferol (Vitamin D3) 25 Mcg Tablet) 25 mcg PO DAILY [facility] Last Admin: 08/17/22 08:34 Dose: 25 mcg Documented By: AUGUSTO <Katherine Cornell PA-C - Last Filed: 08/18/22 10:28> Labs CBC & Chem 7: : 08/17/22 05:47 08/17/22 05:47 <Katherine Cornell PA-C - Last Filed: 08/18/22 10:28> Microbiology Microbiology Results: Microbiology 08/17/22 Unknown Gram Stain - Final Abdomen - Abscess Routine Culture - Preliminary Culture in progress. 08/16/22 17:58 Gram Stain - Final Abdominal Fluid Routine Culture - Preliminary Gram negative gordon Enterococcus/Streptococcus sp 08/16/22 14:51 Blood Culture - Preliminary Blood - Venous No growth after 24 hours. 08/16/22 13:17 Blood Culture - Preliminary Blood - Venous No growth after 24 hours. <Katherine Cornell PA-C - Last Filed: 08/18/22 10:28> Procedures Date of Service Date of Service: 08/18/22 <Hany Rowe MD - Last Filed: 08/18/22 09:14> Progress Note: A&P Assessment and plan (1) Dehiscence of external surgical wound: Status: Acute <Katherine Cornell PA-C - Last Filed: 08/18/22 10:28> Assessment and Plan: complains of some pain on I&D sites dressings dry patient looks well clinically no fever continue IVantibiotics wound care seen and examined independently - agree with GARIMA Cornell <Hany Rowe MD - Last Filed: 08/18/22 09:14> (2) H/O abdominoplasty: Status: Acute <Katherine Cornell PA-C - Last Filed: 08/18/22 10:28> Assessment and Plan: 52 year old female who had an abdominplasty in [place] almost 1 month ago who is now POD # 1 s/p I&D of abdominoplasty incision on b/l sides. Her WBC is normal. Cont IV zosyn. Will start on bowel regimen. Will need to remain inpatient for the next couple of days for wound care and IV abx. <Katherine Cornell PA-C - Last Filed: 08/18/22 10:28> Time Spent With Patient Time: Total time managing care of this patient today ____ minutes. <Katherine Cornell PA-C - Last Filed: 08/18/22 10:28> Quality Stroke Does the patient have a stroke diagnosis?: No <Katherine Cornell PA-C - Last Filed: 08/18/22 10:28> VTE Prior VTE?: No <Katherine Cornell PA-C - Last Filed: 08/18/22 10:28> VTE Risk Level:: Surgical - low <Katherine Cornell PA-C - Last Filed: 08/18/22 10:28> VTE Device Contraindication: N/A - Device Ordered <Katherine Cornell PA-C - Last Filed: 08/18/22 10:28> VTE Drug Contraindication: Treatment Not Indicated <Katherine Cornell PA-C - Last Filed: 08/18/22 10:28>
[2022-08-18] MEDS: Acetaminophen 325 MG TABLET 650 MG PO ×4 (09:16→20:20)
[2022-08-18] MEDS: FLUoxetine HCl 20 MG CAPSULE PO ×2 (09:16→20:20)
[2022-08-18] MEDS: Cholecalciferol (Vitamin D3) 25 MCG TABLET PO (09:17)
[2022-08-18] MEDS: Cyanocobalamin (Vitamin B-12) 1,000 MCG TABLET 1000 MCG PO (09:17)
[2022-08-18] MEDS: 0.9 % Sodium Chloride Flush 3 ML SYRINGE IVFLUSH ×3 (09:17→20:29)
[2022-08-18] MEDS: oxyCODONE HCl Immed Release 5 MG TABLET PO ×2 (09:57→20:20)
[2022-08-18 11:24] VITALS: BP 137/70; PULSE 74; RESP 18; TEMP 36.3; O2SAT 95
--- NOTE | 2022-08-18 11:58 | HO.POSTANES ---
Post Anesthesia Evaluation Post Anesthesia Evaluation Vital Signs: Vital Signs Temp Pulse Resp BP Pulse Ox O2 Del Method 08/18/22 11:24 97.4 F 74 18 137/70 95 Room Air 08/18/22 08:00 97.4 F 58 18 146/71 H 95 Room Air 08/18/22 03:47 97.7 F 66 16 133/68 94 Room Air Anesthesia: Monitored Mental Status: Awake Pain Control: Satisfactory (some pain) Nausea/Vomiting: None Hydration: Adequate Anesthesia-Related Issues: No Anes. Related Issues
[2022-08-18] MEDS: oxyCODONE HCl Immed Release 5 MG TABLET 10 MG PO (14:13)
[2022-08-18 16:29] VITALS: BP 142/65; PULSE 60; RESP 20; TEMP 36.3; O2SAT 60
[2022-08-18 19:27] VITALS: BP 149/69; PULSE 52; RESP 20; TEMP 36.6; O2SAT 98
[2022-08-18] MEDS: Docusate Sodium 100 MG CAPSULE PO (20:20)
[2022-08-19] VITALS (7 sets, daily range): BP systolic 135–170; BP diastolic 73–88; PULSE 59–77; RESP 16–20; TEMP 36–37.2; O2SAT 62–96
[2022-08-19] MEDS: oxyCODONE HCl Immed Release 5 MG TABLET PO ×5 (01:23→20:48)
[2022-08-19] MEDS: Morphine Sulfate 2 MG/ML CARTRIDGE IVPUSH ×5 (01:23→20:48)
[2022-08-19] MEDS: Piperacillin Sodium/Tazobactam 3.375 GM in 0.9 % Sodium Chloride 50 ML IV ×4 (01:27→20:10)
[2022-08-19] MEDS: traZODone HCL 50 MG TABLET 150 MG PO (01:30)
[2022-08-19] MEDS: Omeprazole 20 MG CAPSULE.DR 40 MG PO (05:38)
[2022-08-19] MEDS: Acetaminophen 325 MG TABLET 650 MG PO ×4 (08:06→20:11)
[2022-08-19] MEDS: FLUoxetine HCl 20 MG CAPSULE PO ×2 (08:07→20:11)
[2022-08-19] MEDS: Docusate Sodium 100 MG CAPSULE PO ×2 (08:07→20:11)
[2022-08-19] MEDS: Cyanocobalamin (Vitamin B-12) 1,000 MCG TABLET 1000 MCG PO (08:07)
[2022-08-19] MEDS: Cholecalciferol (Vitamin D3) 25 MCG TABLET PO (08:07)
[2022-08-19] MEDS: polyethylene glycoL 3350 17 GM POWD.PACK PO (08:07)
[2022-08-19] MEDS: 0.9 % Sodium Chloride Flush 3 ML SYRINGE IVFLUSH ×3 (08:20→23:27)
--- NOTE | 2022-08-19 09:00 | PM.PNGS ---
Subjective Subjective Date of Service: 08/19/22 <Katherine Guzman PA-C - Last Filed: 08/19/22 09:06> 08/19/22 <Hany Rowe MD - Last Filed: 08/19/22 09:54> Interval history: Continues to need morphine for pain at I&D site. Feeling a little better. Tolerating diet. <Katherine Guzman PA-C - Last Filed: 08/19/22 09:06> Physical Exam Vital Signs: Vital Signs: Last Vital Signs Temp 98.1 F 08/19/22 07:35 Pulse 60 08/19/22 07:35 Resp 18 08/19/22 07:35 BP 146/78 H 08/19/22 07:35 Pulse Ox 94 08/19/22 07:35 O2 Del Method 08/19/22 07:35 O2 Flow Rate 2 08/17/22 17:26 BMI result Body Mass Index 31.1 <FABRICIO Laguerre Last Filed: 08/19/22 09:06> Const: General: comfortable, no acute distress and alert <Katherine Guzman PA-C - Last Filed: 08/19/22 09:06> Orientation/consciousness: patient oriented x3 <FABRICIO Laguerre Last Filed: 08/19/22 09:06> Resp: Effort & Inspection: normal respiratory effort <FABRICIO Laguerre Last Filed: 08/19/22 09:06> GI: Other: b/l I&D sites clean; L cavity > R; packing removed and extended from one side to other; no necrosis seen, erythema and edema of left flank and hip significantly improved <Katherine Guzman PA-C - Last Filed: 08/19/22 09:06> Inspection: No distended <FABRICIO Laguerre Last Filed: 08/19/22 09:06> Palpation (GI): Soft to palpation, Tenderness to palpation present (GI), no guarding and not rigid <FABRICIO Laguerre Last Filed: 08/19/22 09:06> Skin: General skin exam: no rashes or lesions noted <Katherine Guzman PA-C - Last Filed: 08/19/22 09:06> Neuro: General: patient oriented x3 <Katherine Guzman PA-C - Last Filed: 08/19/22 09:06> Extrem: General: Yes no clubbing, cyanosis or edema <Katherine Guzman PA-C - Last Filed: 08/19/22 09:06> Objective Data Active Medications Acetaminophen (Acetaminophen 325 Mg Tablet) 650 mg PO QID [facility] Last Admin: 08/19/22 08:06 Dose: 650 mg Documented By: BRITTANY Acetaminophen/Butalbital/Caffeine (Butalb/Acetamin/Caff 50/325/40 Tablet) 1 tab PO Q8H PRN PRN Reason: Migraine Headache Cyanocobalamin (Cyanocobalamin (Vitamin B-12) 1,000 Mcg Tablet) 1,000 mcg PO DAILY [facility] Last Admin: 08/19/22 08:07 Dose: 1,000 mcg Documented By: BRITTANY Docusate Sodium (Docusate Sodium 100 Mg Capsule) 100 mg PO BID [facility] Last Admin: 08/19/22 08:07 Dose: 100 mg Documented By: BRITTANY Fentanyl (Fentanyl Citrate/Pf 100 Mcg/2 Ml Vial) 50 mcg IVPUSH Q5M PRN; Protocol PRN Reason: Pain, Severe (Pain Scale 7-10) Fluoxetine HCl (Fluoxetine Hcl 20 Mg Capsule) 20 mg PO BID [facility] Last Admin: 08/19/22 08:07 Dose: 20 mg Documented By: BRITTANY Piperacillin Sod/Tazobactam (Sod 3.375 gm/ Sodium Chloride) 50 mls @ 100 mls/hr IV Q6H [facility] Last Infusion: 08/19/22 08:39 Dose: 0 mls/hr Documented By: BRITTANY Lorazepam (Lorazepam 0.5 Mg Tablet) 0.5 mg PO DAILY PRN PRN Reason: Anxiety Morphine Sulfate (Morphine Sulfate 2 Mg/Ml Cartridge) 2 mg IVPUSH Q4H PRN; Protocol PRN Reason: Pain, Severe (Pain Scale 7-10) Last Admin: 08/19/22 05:42 Dose: 2 mg Documented By: LYDIA Omeprazole (Omeprazole 20 Mg Capsule.) 40 mg PO DAILY@0630 [facility] Last Admin: 08/19/22 05:38 Dose: 40 mg Documented By: LYDIA Ondansetron HCl (Ondansetron Hcl 4 Mg/2 Ml Vial) 4 mg IVPUSH ONCE PRN PRN Reason: Nausea and Vomiting Oxycodone HCl (Oxycodone Hcl Immed Release 5 Mg Tablet) 5 mg PO Q4H PRN PRN Reason: Pain, Moderate (Pain Scale 4-6 Last Admin: 08/19/22 05:38 Dose: 5 mg Documented By: LYDIA Oxycodone HCl (Oxycodone Hcl Immed Release 5 Mg Tablet) 5 mg PO ONCE PRN PRN Reason: Pain, Severe (Pain Scale 7-10) Oxycodone HCl (Oxycodone Hcl Immed Release 5 Mg Tablet) 10 mg PO Q4H PRN PRN Reason: Pain, Moderate (Pain Scale 4-6 Last Admin: 08/18/22 14:13 Dose: 10 mg Documented By: CHEMA Pharmacy Consult (Consult Rx Perform Med Rec) 1 each MISCELLANE ONCE PRN PRN Reason: Consult order Polyethylene Glycol (Polyethylene Glycol 3350 17 Gm Powd.Pack) 17 gm PO DAILY [facility] Last Admin: 08/19/22 08:07 Dose: 17 gm Documented By: BRITTANY Sodium Chloride (0.9 % Sodium Chloride Flush 3 Ml Syringe) [facility] Last Admin: 08/19/22 08:20 Dose: 3 ml Documented By: BRITTANY Trazodone HCl (Trazodone Hcl 50 Mg Tablet) 150 mg PO BEDTIME PRN PRN Reason: insomnia Last Admin: 08/19/22 01:30 Dose: 150 mg Documented By: WARREN Vitamin D (Cholecalciferol (Vitamin D3) 25 Mcg Tablet) 25 mcg PO DAILY [facility] Last Admin: 08/19/22 08:07 Dose: 25 mcg Documented By: BRITTANY <Katherine Guzman PA-C - Last Filed: 08/19/22 09:06> Labs CBC & Chem 7: : 08/17/22 05:47 08/17/22 05:47 <Katherine Guzman PA-C - Last Filed: 08/19/22 09:06> Microbiology Microbiology Results: Microbiology 08/16/22 17:58 Gram Stain - Final Abdominal Fluid Routine Culture - Final Morganella morganii ssp sheyla Streptococcus viridans group 08/16/22 14:51 Blood Culture - Preliminary Blood - Venous No growth after 48 hours. 08/16/22 13:17 Blood Culture - Preliminary Blood - Venous No growth after 48 hours. 08/17/22 Unknown Gram Stain - Final Abdomen - Abscess Routine Culture - Preliminary Culture in progress. <Katherine Guzman PA-C - Last Filed: 08/19/22 09:06> Procedures Date of Service Date of Service: 08/19/22 <Katherine Guzman PA-C - Last Filed: 08/19/22 09:06> Progress Note: A&P Assessment and plan (1) Dehiscence of external surgical wound: Status: Acute <Katherine Guzman PA-C - Last Filed: 08/19/22 09:06> Assessment and Plan: feels well still has pain on I and D sites both operative sites clean packing removed she is not ready to go home today doing well continue IV abx seen and examined - agree with GARIMA Guzman <Hany Rowe MD - Last Filed: 08/19/22 09:54> (2) H/O abdominoplasty: Status: Acute <Katherine Guzman PA-C - Last Filed: 08/19/22 09:06> Assessment and Plan: 52 year old female who had an abdominplasty in [place] almost 1 month ago who is now POD # 2 s/p I&D of abdominoplasty incision on b/l sides. Sites are clean without necrosis or purulence, packing removed. Surrounding erythema and edema improving. No further I&D or debridement needed. Cont IV abx. Home tomorrow on course of PO abx if site remains clean and she is comfortable on PO analgesics alone today. <Katherine Guzman PA-C - Last Filed: 08/19/22 09:06> Time Spent With Patient Time: Total time managing care of this patient today ____ minutes. <Katherine Guzman PA-C - Last Filed: 08/19/22 09:06> Quality Stroke Does the patient have a stroke diagnosis?: No <Katherine Guzman PA-C - Last Filed: 08/19/22 09:06> VTE Prior VTE?: No <Katherine Guzman PA-C - Last Filed: 08/19/22 09:06> VTE Risk Level:: Surgical - low <Katherine Guzman PA-C - Last Filed: 08/19/22 09:06> VTE Device Contraindication: N/A - Device Ordered <Katherine Guzman PA-C - Last Filed: 08/19/22 09:06> VTE Drug Contraindication: Treatment Not Indicated <Katherine Guzman PA-C - Last Filed: 08/19/22 09:06>
[2022-08-19] MEDS: Lactulose 20 GM/30 ML SOLUTION PO (15:36)
[2022-08-20] VITALS (8 sets, daily range): BP systolic 122–159; BP diastolic 68–85; PULSE 59–74; RESP 16–20; TEMP 36.1–36.6; O2SAT 92–97
[2022-08-20] MEDS: traZODone HCL 50 MG TABLET 150 MG PO ×2 (00:36→21:20)
[2022-08-20] MEDS: Piperacillin Sodium/Tazobactam 3.375 GM in 0.9 % Sodium Chloride 50 ML IV ×2 (02:46→08:10)
[2022-08-20] MEDS: Morphine Sulfate 2 MG/ML CARTRIDGE IVPUSH (02:52)
[2022-08-20] MEDS: oxyCODONE HCl Immed Release 5 MG TABLET PO (05:34)
[2022-08-20] MEDS: Omeprazole 20 MG CAPSULE.DR 40 MG PO (05:34)
[2022-08-20] MEDS: Acetaminophen 325 MG TABLET 650 MG PO ×4 (08:10→19:46)
[2022-08-20] MEDS: Cyanocobalamin (Vitamin B-12) 1,000 MCG TABLET 1000 MCG PO (08:10)
[2022-08-20] MEDS: FLUoxetine HCl 20 MG CAPSULE PO ×2 (08:10→19:48)
[2022-08-20] MEDS: Cholecalciferol (Vitamin D3) 25 MCG TABLET PO (08:10)
[2022-08-20] MEDS: polyethylene glycoL 3350 17 GM POWD.PACK PO (08:10)
[2022-08-20] MEDS: Docusate Sodium 100 MG CAPSULE PO ×2 (08:10→19:48)
[2022-08-20] MEDS: 0.9 % Sodium Chloride Flush 3 ML SYRINGE IVFLUSH ×3 (08:11→19:48)
--- NOTE | 2022-08-20 08:16 | P.PNGS_ITS ---
Subjective Subjective Date of Service: 08/20/22 <Katherine Cornell PA-C - Last Filed: 08/20/22 08:20> 08/20/22 <Hany Rowe MD - Last Filed: 08/20/22 13:39> Interval history: Still required morphine for pain yesterday. Wants to shower. Has not had BM in a week. Usually takes lactulose three times a day when constipated. <Katherine Cornell PA-C - Last Filed: 08/20/22 08:20> Physical Exam Vital Signs: Vital Signs: Last Vital Signs Temp 97 F 08/20/22 02:48 Pulse 74 08/20/22 02:48 Resp 18 08/20/22 03:52 BP 159/74 H 08/20/22 02:48 Pulse Ox 92 08/20/22 02:48 O2 Del Method 08/20/22 02:48 O2 Flow Rate 2 08/17/22 17:26 BMI result Body Mass Index 31.1 <FABRICIO Laguerre Last Filed: 08/20/22 08:20> Const: General: comfortable, no acute distress and alert <Katherine Cornell PA-C - Last Filed: 08/20/22 08:20> Orientation/consciousness: patient oriented x3 <FABRICIO Laguerre Last Filed: 08/20/22 08:20> Resp: Effort & Inspection: normal respiratory effort <Katherine Cornell PA-C - Last Filed: 08/20/22 08:20> GI: Other: dressings intact; left flank/hip edema and erythema resolving <FABRICIO Laguerre Last Filed: 08/20/22 08:20> Inspection: No distended and Yes incision (umbilical incision clean) <FABRICIO Laguerre Last Filed: 08/20/22 08:20> Palpation (GI): Soft to palpation, no guarding and not rigid <FABRICIO Hansen Last Filed: 08/20/22 08:20> Skin: General skin exam: no rashes or lesions noted <FABRICIO Laguerre Last Filed: 08/20/22 08:20> Neuro: General: patient oriented x3 <Katherine Cornell PA-C - Last Filed: 08/20/22 08:20> Extrem: General: Yes no clubbing, cyanosis or edema <Katherine Cornell PA-C - Last Filed: 08/20/22 08:20> Objective Data Active Medications Acetaminophen (Acetaminophen 325 Mg Tablet) 650 mg PO QID [facility] Last Admin: 08/20/22 08:10 Dose: 650 mg Documented By: BRITTANY Acetaminophen/Butalbital/Caffeine (Butalb/Acetamin/Caff 50/325/40 Tablet) 1 tab PO Q8H PRN PRN Reason: Migraine Headache Cyanocobalamin (Cyanocobalamin (Vitamin B-12) 1,000 Mcg Tablet) 1,000 mcg PO DAILY [facility] Last Admin: 08/20/22 08:10 Dose: 1,000 mcg Documented By: BRITTANY Docusate Sodium (Docusate Sodium 100 Mg Capsule) 100 mg PO BID [facility] Last Admin: 08/20/22 08:10 Dose: 100 mg Documented By: BRITTANY Fentanyl (Fentanyl Citrate/Pf 100 Mcg/2 Ml Vial) 50 mcg IVPUSH Q5M PRN; Protocol PRN Reason: Pain, Severe (Pain Scale 7-10) Fluoxetine HCl (Fluoxetine Hcl 20 Mg Capsule) 20 mg PO BID [facility] Last Admin: 08/20/22 08:10 Dose: 20 mg Documented By: BRITTANY Piperacillin Sod/Tazobactam (Sod 3.375 gm/ Sodium Chloride) 50 mls @ 100 mls/hr IV Q6H [facility] Last Admin: 08/20/22 08:10 Dose: 100 mls/hr Documented By: BRITTANY Lactulose (Lactulose 20 Gm/30 Ml Solution) 20 gm PO TID [facility] Lorazepam (Lorazepam 0.5 Mg Tablet) 0.5 mg PO DAILY PRN PRN Reason: Anxiety Morphine Sulfate (Morphine Sulfate 2 Mg/Ml Cartridge) 2 mg IVPUSH Q4H PRN; Pro tocol PRN Reason: Pain, Severe (Pain Scale 7-10) Last Admin: 08/20/22 02:52 Dose: 2 mg Documented By: MARY Omeprazole (Omeprazole 20 Mg Capsule.) 40 mg PO DAILY@0630 [facility] Last Admin: 08/20/22 05:34 Dose: 40 mg Documented By: MARY Ondansetron HCl (Ondansetron Hcl 4 Mg/2 Ml Vial) 4 mg IVPUSH ONCE PRN PRN Reason: Nausea and Vomiting Oxycodone HCl (Oxycodone Hcl Immed Release 5 Mg Tablet) 5 mg PO Q4H PRN PRN Reason: Pain, Moderate (Pain Scale 4-6 Last Admin: 08/20/22 05:34 Dose: 5 mg Documented By: MARY Oxycodone HCl (Oxycodone Hcl Immed Release 5 Mg Tablet) 5 mg PO ONCE PRN PRN Reason: Pain, Severe (Pain Scale 7-10) Oxycodone HCl (Oxycodone Hcl Immed Release 5 Mg Tablet) 10 mg PO Q4H PRN PRN Reason: Pain, Moderate (Pain Scale 4-6 Last Admin: 08/18/22 14:13 Dose: 10 mg Documented By: CHEMA Pharmacy Consult (Consult Rx Perform Med Rec) 1 each MISCELLANE ONCE PRN PRN Reason: Consult order Polyethylene Glycol (Polyethylene Glycol 3350 17 Gm Powd.Pack) 17 gm PO DAILY [facility] Last Admin: 08/20/22 08:10 Dose: 17 gm Documented By: BRITTANY Sodium Chloride (0.9 % Sodium Chloride Flush 3 Ml Syringe) 3 ml IVFLUSH QSHIFT [facility] Last Admin: 08/20/22 08:11 Dose: 3 ml Documented By: BRITTANY Trazodone HCl (Trazodone Hcl 50 Mg Tablet) 150 mg PO BEDTIME PRN PRN Reason: insomnia Last Admin: 08/20/22 00:36 Dose: 150 mg Documented By: MARY Vitamin D (Cholecalciferol (Vitamin D3) 25 Mcg Tablet) 25 mcg PO DAILY [facility] Last Admin: 08/20/22 08:10 Dose: 25 mcg Documented By: BRITTANY <Katherine Cornell PA-C - Last Filed: 08/20/22 08:20> Labs CBC & Chem 7: : 08/17/22 05:47 08/17/22 05:47 <Katherine Cornell PA-C - Last Filed: 08/20/22 08:20> Microbiology Microbiology Results: Microbiology 08/17/22 Unknown Gram Stain - Final Abdomen - Abscess Routine Culture - Preliminary Morganella morganii ssp sheyla 08/16/22 17:58 Gram Stain - Final Abdominal Fluid Routine Culture - Final Morganella morganii ssp sheyla Streptococcus viridans group <Katherine Cornell PA-C - Last Filed: 08/20/22 08:20> Procedures Date of Service Date of Service: 08/20/22 <Katherine Cornell PA-C - Last Filed: 08/20/22 08:20> Progress Note: A&P Assessment and plan (1) Dehiscence of external surgical wound: Status: Acute <Katherine Cornell PA-C - Last Filed: 08/20/22 08:20> Assessment and Plan: I have changed her dressings Both I&D site is clean, granulating well She feels that she is not ready to go home - she has she still needs morphine is constipated Currently on bowel regimen I explained to her that morphine will slow down her bowel functions Encouraged to avoid morphine from here on Encouraged to ambulate as well Continue wound care <Hany Rowe MD - Last Filed: 08/20/22 13:39> (2) H/O abdominoplasty: Status: Acute <Katherine Cornell PA-C - Last Filed: 08/20/22 08:20> Assessment and Plan: 52 year old female who had an abdominplasty in [place] almost 1 month ago who is now POD # 3 s/p I&D of abdominoplasty incision on b/l sides. Doing well and sites have been clean. Surrounding erythema and edema improving. Wants to shower- will return to change dressings. Abscess cultures growing Morganella morganii ssp sheyla and Streptococcus viridans group sensitive to levaquin, abx changed. Home today on course of PO abx if she is comfortable on PO analgesics alone today. <Katherine Cornell PA-C - Last Filed: 08/20/22 08:20> Time Spent With Patient Time: Total time managing care of this patient today ____ minutes. <FABRICIO Laguerre Last Filed: 08/20/22 08:20> Quality Stroke Does the patient have a stroke diagnosis?: No <FABRICIO Laguerre Last Filed: 08/20/22 08:20> VTE Prior VTE?: No <Katherine Cornell PA-C - Last Filed: 08/20/22 08:20> VTE Risk Level:: Surgical - low <FABRICIO Laguerre Last Filed: 08/20/22 08:20> VTE Device Contraindication: N/A - Device Ordered <FABRICIO Laguerre Last Filed: 08/20/22 08:20> VTE Drug Contraindication: Treatment Not Indicated <FABRICIO Laguerre Last Filed: 08/20/22 08:20>
[2022-08-20] MEDS: Lactulose 20 GM/30 ML SOLUTION PO ×3 (08:28→19:48)
[2022-08-20] MEDS: oxyCODONE HCl Immed Release 5 MG TABLET 10 MG PO ×4 (09:07→21:19)
[2022-08-20] MEDS: levoFLOXacin/D5W 500 MG/100 ML PIGGYBACK 100 MG IV (09:07)
[2022-08-21] MEDS: oxyCODONE HCl Immed Release 5 MG TABLET 10 MG PO ×4 (02:36→15:28)
[2022-08-21 02:37] VITALS: BP 159/69; PULSE 74; RESP 16; TEMP 36.4; O2SAT 97
[2022-08-21] MEDS: Omeprazole 20 MG CAPSULE.DR 40 MG PO (06:08)
[2022-08-21] MEDS: Docusate Sodium 100 MG CAPSULE PO (07:35)
[2022-08-21] MEDS: Cyanocobalamin (Vitamin B-12) 1,000 MCG TABLET 1000 MCG PO (07:35)
[2022-08-21] MEDS: Acetaminophen 325 MG TABLET 650 MG PO ×2 (07:35→14:12)
[2022-08-21] MEDS: FLUoxetine HCl 20 MG CAPSULE PO (07:36)
[2022-08-21] MEDS: Cholecalciferol (Vitamin D3) 25 MCG TABLET PO (07:36)
[2022-08-21] MEDS: 0.9 % Sodium Chloride Flush 3 ML SYRINGE IVFLUSH (07:36)
[2022-08-21] MEDS: Lactulose 20 GM/30 ML SOLUTION PO (07:36)
[2022-08-21] MEDS: levoFLOXacin/D5W 500 MG/100 ML PIGGYBACK 100 MG IV (07:36)
[2022-08-21 08:00] VITALS: BP 139/79; PULSE 68; RESP 16; TEMP 36.4; O2SAT 97
--- NOTE | 2022-08-21 08:37 | PM.PNGS ---
Subjective Subjective Date of Service: 08/21/22 <Katherine Cornell PA-C - Last Filed: 08/21/22 10:23> 08/21/22 <Hnay Rowe MD - Last Filed: 08/21/22 09:44> Interval history: Was able to avoid morphine yesterday but states she does not think she can manage this at home while caring for her son. Had BM yesterday. <Katherine Cornell PA-C - Last Filed: 08/21/22 10:23> Physical Exam Vital Signs: Vital Signs: Last Vital Signs Temp 97.6 F 08/21/22 08:00 Pulse 68 08/21/22 08:00 Resp 16 08/21/22 08:00 BP 139/79 08/21/22 08:00 Pulse Ox 97 08/21/22 08:00 O2 Del Method 08/21/22 08:00 O2 Flow Rate 2 08/17/22 17:26 BMI result Body Mass Index 31.1 <Katherine Cornell PA-C - Last Filed: 08/21/22 10:23> Const: General: comfortable, no acute distress and alert <Katherine Cornell PA-C - Last Filed: 08/21/22 10:23> Orientation/consciousness: patient oriented x3 <Katherine Cornell PA-C - Last Filed: 08/21/22 10:23> Resp: Effort & Inspection: normal respiratory effort <Katherine Cornell PA-C - Last Filed: 08/21/22 10:23> GI: Other: wounds remain clean, granulation at base, no purulent drainage, erythema/edema of left hip continues to improve <Katherine Cornell PA-C - Last Filed: 08/21/22 10:23> Inspection: No distended <FABRICIO Laguerre Last Filed: 08/21/22 10:23> Palpation (GI): Soft to palpation, Tenderness to palpation present (GI), no guarding and not rigid <FABRICIO Laguerre Last Filed: 08/21/22 10:23> Skin: General skin exam: no rashes or lesions noted <FABRICIO Laguerre Last Filed: 08/21/22 10:23> Neuro: General: patient oriented x3 <Katherine Cornell PA-C - Last Filed: 08/21/22 10:23> Extrem: General: Yes no clubbing, cyanosis or edema <Katherine Cornell PA-C - Last Filed: 08/21/22 10:23> Objective Data Active Medications Acetaminophen (Acetaminophen 325 Mg Tablet) 650 mg PO QID [facility] Last Admin: 08/21/22 07:35 Dose: 650 mg Documented By: BRITTANY Acetaminophen/Butalbital/Caffeine (Butalb/Acetamin/Caff 50/325/40 Tablet) 1 tab PO Q8H PRN PRN Reason: Migraine Headache Cyanocobalamin (Cyanocobalamin (Vitamin B-12) 1,000 Mcg Tablet) 1,000 mcg PO DAILY [facility] Last Admin: 08/21/22 07:35 Dose: 1,000 mcg Documented By: BRITTANY Docusate Sodium (Docusate Sodium 100 Mg Capsule) 100 mg PO BID [facility] Last Admin: 08/21/22 07:35 Dose: 100 mg Documented By: BRITTANY Fentanyl (Fentanyl Citrate/Pf 100 Mcg/2 Ml Vial) 50 mcg IVPUSH Q5M PRN; Protocol PRN Reason: Pain, Severe (Pain Scale 7-10) Fluoxetine HCl (Fluoxetine Hcl 20 Mg Capsule) 20 mg PO BID [facility] Last Admin: 08/21/22 07:36 Dose: 20 mg Documented By: BRITTANY Levofloxacin (Levaquin) 500 mg in 100 mls @ 100 mls/hr IV Q24H [facility] Last Admin: 08/21/22 07:36 Dose: 100 mls/hr Documented By: BRITTANY Lactulose (Lactulose 20 Gm/30 Ml Solution) 20 gm PO TID [facility] Last Admin: 08/21/22 07:36 Dose: 20 gm Documented By: BRITTANY Lorazepam (Lorazepam 0.5 Mg Tablet) 0.5 mg PO DAILY PRN PRN Reason: Anxiety Morphine Sulfate (Morphine Sulfate 2 Mg/Ml Cartridge) 2 mg IVPUSH Q4H PRN; Protocol PRN Reason: Pain, Severe (Pain Scale 7-10) Last Admin: 08/20/22 02:52 Dose: 2 mg Documented By: MARY Omeprazole (Omeprazole 20 Mg Capsule.Dr) 40 mg PO DAILY@0630 [facility] Last Admin: 08/21/22 06:08 Dose: 40 mg Documented By: HUMPHREY Ondansetron HCl (Ondansetron Hcl 4 Mg/2 Ml Vial) 4 mg IVPUSH ONCE PRN PRN Reason: Nausea and Vomiting Oxycodone HCl (Oxycodone Hcl Immed Release 5 Mg Tablet) 5 mg PO Q4H PRN PRN Reason: Pain, Moderate (Pain Scale 4-6 Last Admin: 08/20/22 05:34 Dose: 5 mg Documented By: MARY Oxycodone HCl (Oxycodone Hcl Immed Release 5 Mg Tablet) 5 mg PO ONCE PRN PRN Reason: Pain, Severe (Pain Scale 7-10) Oxycodone HCl (Oxycodone Hcl Immed Release 5 Mg Tablet) 10 mg PO Q4H PRN PRN Reason: Pain, Moderate (Pain Scale 4-6 Last Admin: 08/21/22 07:34 Dose: 10 mg Documented By: BRITTANY Pharmacy Consult (Consult Rx Perform Med Rec) 1 each MISCELLANE ONCE PRN PRN Reason: Consult order Polyethylene Glycol (Polyethylene Glycol 3350 17 Gm Powd.Pack) 17 gm PO DAILY [facility] Last Admin: 08/21/22 07:36 Dose: Not Given Documented By: BRITTANY Non-Admin Reason: Patient Refused Sodium Chloride (0.9 % Sodium Chloride Flush 3 Ml Syringe) 3 ml IVFLUSH QSHIFT [facility] Last Admin: 08/21/22 07:36 Dose: 3 ml Documented By: BRITTANY Trazodone HCl (Trazodone Hcl 50 Mg Tablet) 150 mg PO BEDTIME PRN PRN Reason: insomnia Last Admin: 08/20/22 21:20 Dose: 150 mg Documented By: HUMPHREY Vitamin D (Cholecalciferol (Vitamin D3) 25 Mcg Tablet) 25 mcg PO DAILY [facility] Last Admin: 08/21/22 07:36 Dose: 25 mcg Documented By: BRITTANY <Katherine Cornell PA-C - Last Filed: 08/21/22 10:23> Labs CBC & Chem 7: 08/17/22 05:47 08/17/22 05:47 <Katherine Cornell PA-C - Last Filed: 08/21/22 10:23> Microbiology Microbiology Results: Microbiology 08/17/22 Unknown Gram Stain - Final Abdomen - Abscess Routine Culture - Final Morganella morganii ssp sheyla Viridans streptococcus group <Katherine Cornell PA-C - Last Filed: 08/21/22 10:23> Procedures Date of Service Date of Service: 08/21/22 <Hany Rowe MD - Last Filed: 08/21/22 09:44> Progress Note: A&P Assessment and plan (1) Dehiscence of external surgical wound: Status: Acute <Katherine Cornell PA-C - Last Filed: 08/21/22 10:23> (2) H/O abdominoplasty: Status: Acute <Katherine Cornell PA-C - Last Filed: 08/21/22 10:23> Assessment and Plan: I and D sites appear clean and granulating well Looks well No cellulitis No fever Continue wound care Okay to DC home - patient has done because of concerns with wound care; wound care reviewed with her - wet to dry with light packing Seen and examined independently - agree with GARIMA Cornell <Hany Rowe MD - Last Filed: 08/21/22 09:44> Assessment and Plan: 52 year old female who had an abdominplasty in [place] almost 1 month ago who is now POD # 4 s/p I&D of abdominoplasty incision on b/l sides. Doing well and sites have been clean. Surrounding erythema and edema improving. Will reassess later today. Home on course of PO abx if she remains comfortable. Will need VNA. Discussed with case management. <Katherine Cornell PA-C - Last Filed: 08/21/22 10:23> Time Spent With Patient Time: Total time managing care of this patient today ____ minutes. <Katherine Cornell PA-C - Last Filed: 08/21/22 10:23> Quality Stroke Does the patient have a stroke diagnosis?: No <Katherine Cornell PA-C - Last Filed: 08/21/22 10:23> VTE Prior VTE?: No <Katherine Cornell PA-C - Last Filed: 08/21/22 10:23> VTE Risk Level:: Surgical - low <Katherine Cornell PA-C - Last Filed: 08/21/22 10:23> VTE Device Contraindication: N/A - Device Ordered <Katherine Cornell PA-C - Last Filed: 08/21/22 10:23> VTE Drug Contraindication: Treatment Not Indicated <Katherine Cornell PA-C - Last Filed: 08/21/22 10:23>
--- NOTE | 2022-08-21 10:23 | MHC.CM.PN ---
Addendum entered by Denice Elliott 08/21/22 15:02: RX'S HAVE BEEN FAXED TO [facility] SUPPLY [facility] AND [facility] DID NOT ANSWER [facility] IS ABLE TO OFFER HOWEVER THEY CANNOT PROVIDE DAILY VISITS CM MET WITH PT AND [facility] NURSE CALLED HER, SHE HAS CONFIRMED HER DAUGHTER AND FRIEND CAN LEARN DRESSINGS AND ASSIST WHEN [facility] IS NOT THERE. PT WILL NEED 5 DAYS WORTH OF DRESSING SUPPLIES SENT WITH HER RN INFORMED PT IS AWARE HER DME SCRIPTS ARE AT [facility], CM AGAIN EXPLAINED HER ABILITY TO GET THE DME WOULD BE DEPENDENT ON INSURANCE COVERAGE. CM ALSO EXPLAINED THAT [facility] INDICATED THEY WILL NOT PROCESS ORDER UNTIL SHE PRESENTS HER INSURANCE CARD AND ID IN PERSON. PT IS AWARE A WOUND CLINIC REFERRAL HAS BEEN MADE PT WILL DC HOME TODAY WITH [facility] FAMILY TO TRANSPORT Original Note: CM MET WITH PT AND DAUGHTER TO DISCUSS DC PLANNING PT REPORTS CONCERNS ABOUT GOING HOME INCLUDING HER SON BEING THERE SHE REPORTS HE IS 22 YO BUT SPECIAL NEEDS AND DEMANDING SHE SAYS HER DAUGHTER AND A FRIEND HAVE BEEN TAKING TURNS CARING FOR HIM WHILE SHE WAS HERE SHE ALSO REPORTS CONCERNS WITH TAKING A SHOWER AND AMBULATING CM EXPLAINED THAT HER DAUGHTER AND FRIEND WOULD NEED TO CONTINUE OFFERING ASSISTANCE WHEN SHE WENT HOME SHE CONFIRMS THEY ARE ABLE CM ALSO EXPLAINED THERE IS A REFERRAL OUT TO [facility]NA FOR SN SERVICES AND PT COULD BE ADDED CM WILL ALSO REQUEST A FINANCE BUSINESS MANAGER IF AVAILABLE CM ALSO REQUESTED SCRIPTS FOR A WALKER AND TUB BENCH FOR PT REFERRAL SENT TO [facility], AWAITING RESPONSE
[2022-08-21 11:31] VITALS: BP 139/76; PULSE 72; RESP 17; TEMP 36.3; O2SAT 95
--- NOTE | 2022-08-21 13:56 | P.DS_ITS ---
DS: Providers Provider Date of Service: 08/21/22 Date of admission: 08/16/22 18:03 Date of discharge: 08/21/22 Primary care physician: Nicole Velazco MD Attending physician on admission: Cindy Addison Attending physician on discharge: Hany Rowe DS: Diagnosis Discharge Diagnosis (1) Dehiscence of external surgical wound: Status: Acute (2) H/O abdominoplasty: Status: Acute DS: Summary Hospital Course Hospital Course: HPI ON ADMISSION: Rosa Bates is a 52 year old female who underwent mastopexy bilaterally as well as abdominoplasty in [place] in July 21.? Postoperatively she has been communicating with her surgeons by text but has not received any reply from them the last several days.? She saw the PA in general s urgery office on the 05 of August and the abdominoplasty drains were removed.? The patient says over the last 2-3 days she has been having discharge from abdominal wound and temperatures up to 102.? She called me and antibiotics were prescribed? and she was encouraged to come to the emergency room but could not because of her lack of childcare.? She came in last night with more drainage.? In the emergency room her white count was normal but there was some drainage coming from the abdominal wound but she was afebrile.? HOSPITAL COURSE: She was started on IV zosyn and admitted for further treatment of the abdominal wall abscess. CT scan showed subcutaneous anterior abdominal wall collection with edema. She underwent bilateral I&D of abdominal wall abscess at her abdominoplasty incision by Dr. Addison without complication. The patient tolerated the procedure well. She had an uncomplicated recovery course and remained inpatient for 4 days post op for pain control, wound care and IV antibiotics. Her I&D sites remained clean without necrosis or drainage. The open wounds extended deep into subcutaneous tissue necessitating continued packing with wet to dry fluffs. Her abscess c ultures grew Morganella morganii ssp sheyla and Viridans streptococcus sensitive to levaquin. She was therefore switched to IV levaquin 500mg daily. Her pain gradually improved and was comfortable on PO analgesics. She felt ready for discharge. She was discharged to home with VNA services on 08/21/22 in stable condition. She was discharged on a PO course of levaquin 500mg daily. She is to follow up with Dr. Rowe in the office in 1 week for a wound check and referral was made for the wound care center. Status at Discharge Functional status at discharge: uses cane/walker Overall status at discharge: patient is progressing back to baseline Time Spent with Patient Time attestation: Total time managing care of this patient today ____ minutes. Discharge coordination time: Greater than 30 minutes Quality: Safe Use of Opioids Does Pt have an Active Cancer Diagnosis on the Problem List?: No Quality: Stroke Does the patient have a stroke diagnosis?: No Physical Exam Vital Signs: Vital Signs: Last Vital Signs Temp 97.3 F 08/21/22 11:31 Pulse 72 08/21/22 11:31 Resp 17 08/21/22 11:31 BP 139/76 08/21/22 11:31 Pulse Ox 95 08/21/22 11:31 O2 Del Method 08/21/22 11:31 O2 Flow Rate 2 08/17/22 17:26 BMI result Body Mass Index 31.1 Const: General: comfortable, no acute distress and alert Orientation/consciousness: patient oriented x3 Resp: Effort & Inspection: normal respiratory effort GI: Other: I&D sites b/l; clean, granulation at base, no necrosis; edema and erythema of left flank/hip improving ; remainder of abdominoplasty incision clean Palpation (GI): Soft to palpation, Tenderness to palpation present (GI), no guarding and not rigid Skin: General skin exam: no rashes or lesions noted Neuro: General: patient oriented x3 DS: Data Data Completed and Pending Labs on day of discharge: Preliminary micro results at discharge 08/16/22 14:51 Blood Culture - Preliminary Blood - Venous No growth after 48 hours. 08/16/22 13:17 Blood Culture - Preliminary Blood - Venous No growth after 48 hours. Discharge Plan Discharge Anticipated Discharge Date/Time: 08/20/22 10:01 Patient Disposition: Home Health Service Discharge Diagnosis: abscess of abdominal wall Referrals: [facility] [place] Wound Care Management [Provider Group] - 1 Week [facility] [Outside] - 1 Week Hany Rowe MD [Physician] - 1 Week Po,Nicole Reese MD [Primary Care Provider] - 1 Week Discharge Medications: New levofloxacin 500 mg tablet 500 mg PO DAILY Qty: 6 0RF oxycodone 5 mg tablet 5 mg PO Q4H PRN (Reason: pain) Qty: 24 0RF Rx Instructions: Partial Fill upon patient request. Take 1-2 tablets every 4-6 hours as needed for pain. (DME) Kerlix 4 X 4 sponge See Rx Instructions .Route Qty: 1200 0RF Rx Instructions: As directed (DME) Shower Chair Misc See Rx Instructions .Route Qty: 1 0RF Rx Instructions: As directed (DME) walker Misc See Rx Instructions .Route Qty: 1 0RF Rx Instructions: As directed Continued cholecalciferol (vitamin D3) 25 mcg (1,000 unit) capsule 25 mcg PO DAILY Qty: 90 3RF trazodone 150 mg tablet 1 tab PO BEDTIME PRN (Reason: insomnia) fluoxetine 20 mg capsule 1 cap PO BID acetaminophen 650 mg Tablet Extended Release 1,300 mg PO Q8H PRN (Reason: Pain) Rx Instructions: do not exceed 4 gram / day oeapinntyg-yrearltvekshz-ctms 50-300-40 mg capsule 1 cap PO Q8H PRN (Reason: Migraine Headache) lorazepam 0.5 mg tablet 0.5 mg PO DAILY PRN (Reason: Anxiety) pantoprazole 40 mg tablet,delayed release (DR/EC) 40 mg PO DAILY@0630 magnesium 200 mg tablet 200 mg PO DAILY 90 Days Qty: 90 3RF cyanocobalamin (vitamin B-12) 1,000 mcg capsule 1,000 mcg PO DAILY Qty: 30 3RF Discharge Orders: Discharge Order (Routine); Ordered 08/21/22 Ordered By: Katherine Cornell Diet: Diabetic diet Activity on Discharge: No heavy lifting Stand Alone Forms: Patient Portal Discharge page Activity Restrictions/Additional Instructions: Dressing changes: wet to dry fluffs to right and left cavity followed by dry fluffs; change daily Call Your Doctor If: ? ? -Your temperature exceeds 101.5? F? ? ? -You experience excessive pain or swelling ? ? -You have an unexpected reaction to medication ? ? -You experience continued vomiting/nausea Care Plan Goals: Wound closure. Return to baseline health and gradual return to activity following recovery period. Health Concerns: Diabetes mellitus Hx of gastric sleeve Hx of abdominoplasty Abscess of abdominal wall Plan of Treatment: S/p I&D of abdominal wall abscess Wound care Assessment: Improved Discharge Date/Time: 08/21/22 16:31
--- NOTE | 2022-08-21 14:46 | W.MHC.F2F ---
Service Date Service Date: 08/21/22 Encounter Date of encounter: 08/21/22 Reasons for Services Signs and symptoms assessed: Abdominal pain, wound appearance Reason for long-term: wound care Homebound: Leaving the home is medically contraindicated at this time without the asist of a device and/or another person due th the listed conditions above and below. Reason homebound: weakness related to hospital stay Homebound supporting statement: Ms. Bates is s/p I&D of b/l abscess at her abdominoplasty incision. She will need dressing changes daily for wound care. Certification: Based on the above findings, I certify that this patient is confined to the home and needs intermittent long-term care, physical therapy and/or speech therapy, or continues to need occupational therapy. The patient is under my care, and I have initiated the establishment of the plan of care. The patient will be followed by a physician who will periodically review the plan of care. Time Spent With Patient Time: Total time managing care of this patient today ____ minutes.
== END 2022-08-21 16:31 | disposition home health service (06) | DRG 813 ==
LOC: HO.ED 17:27 → HO.EDOVER 18:13 → HO.S3 21:47
PROVIDERS: Physician Assistant Medical; Admitting Provider Surgery; Emergency Provider Internal Medicine; PCP Internal Medicine; Visit Provider Surgery
PROC: 0JB80ZZ Excision of Abdomen Subcutaneous Tissue and Fascia, Open Approach (ICD-10-PCS; principal; 2022-08-17 15:00)
DX: T81.31XA Disruption of external operation (surgical) wound, not elsewhere classified, initial encounter (principal); E78.5 Hyperlipidemia, unspecified; Z20.822 Contact with and (suspected) exposure to COVID-19; Z98.84 Bariatric surgery status; Z88.8 Allergy status to other drugs, medicaments and biological substances; Z79.899 Other long term (current) drug therapy
CPT/HCPCS: 0241U; 36415; 74177; 80048; 80053; 83605; 83735; 85025; 85652; 86140; 87040; 87070; 87077; 87186; 87205; 99285; J1100; J1956; J2250; J2270; J2405; J2543; J3010; Q9967

== ENCOUNTER 2022-08-25 13:48 | Outpatient (RCR) | payer OTHER, SELFPAY | END 2022-10-21 16:00 | disposition home or self-care (01) | LOC: HO.WCC 13:48 | PROVIDERS: PCP Internal Medicine; Visit Provider Physician Assistant | DX: T81.31XD Disruption of external operation (surgical) wound, not elsewhere classified, subsequent encounter (principal); Z98.890 Other specified postprocedural states | CPT/HCPCS: 99212; 99213; 99214 ==

== ENCOUNTER 2022-09-02 09:43 | Outpatient (REF) | payer OTHER, SELFPAY ==
[2022-09-02 09:58] LABS: MANUAL DIFF FLAG NO
[2022-09-02 11:03] LABS: Basophils Percent Auto 0.9 % (0-2); Eosinophils Percent Auto 1.2 % (0-4); Hematocrit 36.5 % (37.0-47.0); Hemoglobin 11.6 g/dl (12.0-16.0); Lymphocytes Percent Auto 29.3 % (20-40); Mean Corpuscular HGB Conc 31.8 g/dl (31.0-35.0); Mean Corpuscular Hemoglobin 26.5 pg (27.0-33.0); Mean Corpuscular Volume 83.5 fL (80.0-98.0); Mean Platelet Volume 11.6 fL (9.4-12.3); Monocytes Absolute Auto 0.4 X10*3/uL (0.1-1.2); Monocytes Percent Auto 10.6 % (2-11); Platelet Count 319 X10*3/uL (160-400); Red Blood Count 4.37 X10*6/uL (4.20-5.50); Red Cell Distribution Width 13.5 % (11.0-16.0); White Blood Count 3.4 X10*3/uL (4.8-10.8)
[2022-09-02 11:40] LABS: Alanine Aminotransferase 24 U/L (0-31); Alkaline Phosphatase 71 U/L (39-117); Anion Gap 14 (12-20); Aspartate Amino Transferase 16 U/L (5-31); Bilirubin Total 0.3 mg/dL (0.0-1.0); Blood Urea Nitrogen 20 mg/dL (9-16); Calcium 9.2 mg/dL (8.4-10.2); Carbon Dioxide 24 mmol/L (22-29); Chloride 106 mmol/L (96-108); Estimated Glomerular Filt Rate > 60; Glucose Random 114 mg/dL (60-115); Potassium 3.8 mmol/L (3.3-5.1); Sodium 140 mmol/L (135-145); Total Protein 7.1 g/dL (6.5-8.0)
== END 2022-09-02 09:44 | disposition home or self-care (01) ==
LOC: HO.LAB 09:43
PROVIDERS: PCP Internal Medicine; Visit Provider Nurse Practitioner Family
DX: Z13.0 Encounter for screening for diseases of the blood and blood-forming organs and certain disorders involving the immune mechanism (principal); E11.65 Type 2 diabetes mellitus with hyperglycemia
CPT/HCPCS: 36415; 80053; 85025

== ENCOUNTER → 2022-09-03 09:48 | Outpatient (BNVA) | payer OTHER, SELFPAY | PROVIDERS: PCP Internal Medicine; Visit Provider Physician Assistant Surgical | DX: T81.31XD Disruption of external operation (surgical) wound, not elsewhere classified, subsequent encounter (principal); Z98.890 Other specified postprocedural states | CPT/HCPCS: 99212 ==

== ENCOUNTER → 2022-09-30 10:53 | Outpatient (BNVA) | payer OTHER, SELFPAY | PROVIDERS: PCP Internal Medicine; Referring Provider Internal Medicine; Visit Provider Physician Assistant Surgical | DX: T81.31XA Disruption of external operation (surgical) wound, not elsewhere classified, initial encounter (principal); E66.3 Overweight; Z68.31 Body mass index [BMI] 31.0-31.9, adult; Z98.84 Bariatric surgery status | CPT/HCPCS: 99212 ==

== ENCOUNTER → 2022-10-21 10:24 | Outpatient (BNVA) | payer OTHER, SELFPAY | PROVIDERS: PCP Internal Medicine; Visit Provider Dietitian, Registered | DX: E66.3 Overweight (principal) | CPT/HCPCS: 97803 ==

== ENCOUNTER 2022-12-28 07:34 | Outpatient (REF) | payer OTHER, SELFPAY ==
--- NOTE | ~2022-12-28 | XR_ITS ---
EXAMINATION: XR ABDOMEN COMPLETE CLINICAL INDICATION: Lower abdominal pain COMPARISON: None available. TECHNIQUE: 2 views of the abdomen. FINDINGS: There is moderate stool and gas seen in the colon without significant distention. The small bowel loops are normal. There are surgical gwen left upper quadrant/epigastric region from previous intervention. There is no organomegaly no free air seen. No gross bony abnormality. XR/XR abdomen min 2V IMPRESSION: Mild constipation. . No acute process seen.
[2022-12-28 07:42] LABS: MANUAL DIFF FLAG NO
[2022-12-28 08:14] LABS: Basophils Absolute Auto 0.1 X10*3/uL (0.0-0.2); Basophils Percent Auto 1.1 % (0-2); Eosinophils Absolute Auto 0.1 X10*3/uL (0.0-0.4); Eosinophils Percent Auto 2.6 % (0-4); Hematocrit 39.7 % (37.0-47.0); Hemoglobin 12.4 g/dl (12.0-16.0); Lymphocytes Absolute Auto 1.9 X10*3/uL (1.2-4.9); Mean Corpuscular HGB Conc 31.2 g/dl (31.0-35.0); Mean Corpuscular Hemoglobin 25.5 pg (27.0-33.0); Mean Corpuscular Volume 81.5 fL (80.0-98.0); Mean Platelet Volume 11.1 fL (9.4-12.3); Monocytes Absolute Auto 0.4 X10*3/uL (0.1-1.2); Monocytes Percent Auto 8.8 % (2-11); Neutrophils Absolute Auto 2.2 x10*3/uL (2.0-8.3); Neutrophils Percent Auto 47.5 % (45-73); Platelet Count 251 X10*3/uL (160-400); Red Blood Count 4.87 X10*6/uL (4.20-5.50); Red Cell Distribution Width 14.4 % (11.0-16.0); White Blood Count 4.7 X10*3/uL (4.8-10.8)
[2022-12-28 08:41] LABS: Alanine Aminotransferase 12 U/L (0-31); Albumin Level 3.9 g/dL (3.5-5.0); Alkaline Phosphatase 67 U/L (39-117); Anion Gap 9 (12-20); Aspartate Amino Transferase 13 U/L (5-31); Bilirubin Total 0.3 mg/dL (0.0-1.0); Blood Urea Nitrogen 16 mg/dL (9-16); Calcium 9.2 mg/dL (8.4-10.2); Carbon Dioxide 29 mmol/L (22-29); Chloride 107 mmol/L (96-108); Cholesterol 251 mg/dL; Estimated Glomerular Filt Rate > 60; Glucose Random 85 mg/dL (60-115); HDL Cholesterol 74 mg/dL; LDL Cholesterol Calculated 143 mg/dl; Potassium 4.4 mmol/L (3.3-5.1); Sodium 141 mmol/L (135-145); Total Protein 6.6 g/dL (6.5-8.0); Triglycerides 173 mg/dL
[2022-12-28 08:57] LABS: Free T4 (Free Thyroxine) 0.96 ng/dL (0.71-1.85); Thyroid Stimulating Hormone 1.64 uIU/mL (0.32-4.0)
== END 2022-12-28 07:35 | disposition home or self-care (01) ==
LOC: HO.XRAY 07:34
PROVIDERS: PCP Internal Medicine; Visit Provider Internal Medicine
DX: E78.00 Pure hypercholesterolemia, unspecified (principal); R10.30 Lower abdominal pain, unspecified; E78.5 Hyperlipidemia, unspecified
CPT/HCPCS: 36415; 74019; 80053; 80061; 84439; 84443; 85025

== ENCOUNTER 2023-03-02 09:22 | Outpatient (AMB) | payer OTHER, SELFPAY ==
--- NOTE | 2023-03-02 09:24 | MHC.OFFVISWM ---
Intake VS Expanded 03/02/23 09:26 Height 4 ft 11.5 in Weight 162 lb 6.4 oz BMI 32.2 BP 157/78 H Blood Pressure Location Rt brachial Blood Pressure Position Sitting Pulse 82 Pulse Source Pulse Oximeter Temp 97.7 F Temperature Source Temporal Artery Scan Pulse Oximetry 98 Oxygen Delivery Method Room Air Body Fat 61.0 Body Fat Percentage 37.6 Free Fat Mass 101.2 Muscle Mass 96.2 Visceral Mass 9.0 Water Mass 71.8 BMR 1,390 Comment 2nd b/p- 165/ Intake Visit Reasons: (OV) PO LSG 05/09/20 Allergies lisinopril [LISINOPRIL] Allergy (Intermediate, Verified 03/02/23 09:27) SWELLING/BLURRY VISION house dust Allergy (Mild, Verified 03/02/23 09:) Hives HPI HPI Comments History of Present Illness Details Pt asked to be seen today due to lump on right upper abdomen that she noticed a few days ago. No associated symptoms. Had LSG in 2019, panniculectomy in [place] Jul 2022 and then emergency surgery to drain 2 seromas in August 2022. At her last appt with Damaris she told her she did not want to lose any more weight. She has gained 5 lbs since then. 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 Mother Depression Anxiety Asthma Diabetes Hypertension Brother Bipolar 1 disorder Sister No problems noted. Sister No problems noted. Sister No problems noted. Son No problems noted. Son No problems noted. Daughter No problems noted. Maternal Grandmother Lymphoma Other FH: mental illness Substance use Social History Household Members: Children Housing: House Do you presently have visiting nurse or other home services: No Alcohol intake: never Patient Tobacco Use Status: Never used Tobacco e-Cigarette/Vaping Use: Never Used Second Hand Smoke Exposure: No Advance Directives Date on File: 08/16/22 service: No Current occupational status: employed Current occupational exposures/hazards: No Cognitive needs: No Hearing needs: No Vision needs: Yes Physical Exam Vital Signs: Last Vital Signs Temp 97.7 F 03/02/23 09:26 Pulse 82 03/02/23 09:26 BP 157/78 H 03/02/23 09:26 Pulse Ox 98 03/02/23 09:26 Oxygen Delivery Method Room Air 03/02/23 09:26 BMI result Body Mass Index 32.2 GI Other: bilateral soft tissue fat massed upper abdomen, non tender. symmetric well healed panniculectomy scars. Assessment & Plan Assessment & Plan (1) Obesity: Code(s): E66.9 - Obesity, unspecified Plan: Pt has lost weight after LSG, but still obese and gained another 5 lbs over last few months. We discussd that the lump she described is bilateral fat pads and that at the very least she needs to lose another 12- 15 lbs to be under BMI of 30 for her long standing health. We discussed her exercising in the morning before work when she is not tired. She will resume her normal post op care with Cher. Appt being made today. Patient is obese and is not considered stable at this time. I spent 15 minutes in total with patient reviewing/updating records, examining the patient and counseling the patient on weight management as detailed above. Coding Level of Care Code Est Pt Level 3 (38562) Diagnoses Obesity E66.9
[2023-03-02 09:26] VITALS: BP 157/78; PULSE 82; TEMP 36.5; O2SAT 98; BMI 32.2
== END 2023-03-02 09:48 | disposition home or self-care (01) ==
PROVIDERS: PCP Internal Medicine; Visit Provider Physician Assistant
DX: E66.9 Obesity, unspecified (principal); Z68.32 Body mass index [BMI] 32.0-32.9, adult
CPT/HCPCS: 99213

== ENCOUNTER → 2023-03-02 09:22 | Outpatient (BNVA) | payer OTHER, SELFPAY | PROVIDERS: PCP Internal Medicine; Visit Provider Physician Assistant | DX: E66.9 Obesity, unspecified (principal); R19.01 Right upper quadrant abdominal swelling, mass and lump; E11.39 Type 2 diabetes mellitus with other diabetic ophthalmic complication; K90.49 Malabsorption due to intolerance, not elsewhere classified; Z68.32 Body mass index [BMI] 32.0-32.9, adult | CPT/HCPCS: 99212 ==

== ENCOUNTER 2023-03-08 13:03 | Outpatient (AMB) | payer OTHER, SELFPAY ==
--- NOTE | 2023-03-08 13:05 | MHC.OFFVIS ---
Intake Vital Signs 03/08/23 13:07 Height 4 ft 11.5 in Weight 166 lb 10.711 oz BMI 33.1 BP 156/100 H Blood Pressure Location Lt brachial Position Sitting Pulse 75 Intake Visit Reasons: 1 year follow up Intake Note: 1 year follow up Saw Sharpener Required: No Accompanied by: Self / Same As Patient Allergies lisinopril [LISINOPRIL] Allergy (Intermediate, Verified 03/08/23 13:07) SWELLING/BLURRY VISION house dust Allergy (Mild, Verified 03/08/23 13:07) Hives Medication List - Last Reconciled 03/08/23 by Titus Lomax MD [id number] 50-300-40 mg 1 cap PO Q8H PRN cholecalciferol (vitamin D3) 25 mcg PO DAILY cyanocobalamin (vitamin B-12) 1,000 mcg PO DAILY fluoxetine 20 mg PO BID gauze bandage (Kerlix) As directed lactulose 20 grams (30 mL) PO BID lorazepam 0.5 mg PO DAILY PRN magnesium 200 mg PO DAILY 90 days naproxen 500 mg PO BID PRN pantoprazole 40 mg PO DAILY@0630 psyllium husk (Fiber (psyllium husk)) 0.4 grams PO BEDTIME PRN Shower Chair As directed tramadol 50 mg PO DAILY PRN trazodone 150 mg PO BEDTIME PRN HPI HPI Comments History of Present Illness Details Rosa returns for follow-up regarding premature ventricular contractions. In the past, she was seen because of the Holter showing premature ventricular contractions. However, no major cardiac issues otherwise like cardiomyopathy. She underwent bariatric surgery and lost about 75 lb or so according to her. However she has gained about 15 lb back. Overall, she is doing good. No complaints like angina or shortness of breath or in fact anything cardiac sounding. She seems to be getting along fine. 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 Mother Depression Anxiety Asthma Diabetes Hypertension Brother Bipolar 1 disorder Sister No problems noted. Sister No problems noted. Sister No problems noted. Son No problems noted. Son No problems noted. Daughter No problems noted. Maternal Grandmother Lymphoma Other FH: mental illness Substance use Social History Household Members: Children Housing: House Do you presently have visiting nurse or other home services: No Alcohol intake: never Patient Tobacco Use Status: Never used Tobacco e-Cigarette/Vaping Use: Never Used Second Hand Smoke Exposure: No Advance Directives Date on File: 08/16/22 service: No Current occupational status: employed Current occupational exposures/hazards: No Cognitive needs: No Hearing needs: No Vision needs: Yes Review of Systems Const Denies weakness ENT Denies dizziness Card Denies chest pain, Denies chest pain with activity, Denies syncope, Denies rapid heart rate, Denies pedal edema, Denies edema, Denies leg edema, Denies lightheadedness, Denies palpitations, Denies dyspnea, Denies dyspnea on exertion and Denies orthopnea Resp Denies cough, Denies dyspnea and Denies dyspnea on exertion GI Denies hematochezia and Denies change in stool character Musc Denies abnormal gait, Denies muscle cramps, Denies muscle weakness, Denies numbness, Denies radiating pain into limb and Denies tingling Neuro Denies abnormal gait, Denies dizziness, Denies syncope, Denies numbness, Denies tingling and Denies weakness Endo Denies palpitations Physical Exam Vital Signs: Last Vital Signs Pulse 75 03/08/23 13:07 BP 156/100 H 03/08/23 13:07 BMI result Body Mass Index 33.1 Const General: comfortable and no acute distress Orientation/consciousness: patient oriented x3 HEENT Other: Unremarkable Head: Yes normal to inspection Neck Neck: Yes normal visual inspection Chest Chest palpation & inspection: normal inspection of the chest Resp Auscultation: clear to auscultation bilaterally Cardio Palpation: normal PMI Heart sounds: S1 normal heart sound present, S2 normal heart sound present, no gallops, no murmurs and no rubs GI Palpation (GI): Soft to palpation Back/Spine/Pelvis Other: unremarkable Skin General skin exam: no rashes or lesions noted Neuro General: patient oriented x3 Extrem General: Yes normal to inspection Psych Mental Status: mental status grossly normal Assessment & Plan Assessment & Plan (1) PVC (premature ventricular contraction): Code(s): I49.3 - Ventricular premature depolarization Plan: In the most recent Holter, no significant PVCs. She has no symptoms either. Off beta-blockers. Echocardiogram from 20 minutes to with LVEF of 56%. No wall motion abnormalities or other significant findings. Stress [id number] stress test; Aly protocol; 5 minutes 55 seconds; 7 Mets; no angina or ischemia; no arrhythmias; normal perfusion. Holter from 2021 shows normal sinus rhythm and rare PVCs. Minimal burden. (2) Essential hypertension: Code(s): I10 - Essential (primary) hypertension Plan: Used to be on amlodipine but not taking anymore. Today's blood pressure is again high. Advised to do some home readings. Based on this, may need to go back on medications. (3) Status post laparoscopic sleeve gastrectomy: Comment: April 2020 Code(s): Z98.84 - Bariatric surgery status Coding Level of Care Code Est Pt Level 3 (15488) Diagnoses PVC (premature ventricular contraction) I49.3 Essential hypertension I10 Status post laparoscopic sleeve gastrectomy Z98.84
[2023-03-08 13:07] VITALS: BP 156/100; PULSE 75; BMI 33.1
== END 2023-03-08 13:22 | disposition home or self-care (01) ==
PROVIDERS: Visit Provider Internal Medicine
DX: I49.3 Ventricular premature depolarization (principal); I10 Essential (primary) hypertension; Z98.84 Bariatric surgery status
CPT/HCPCS: 99213

== ENCOUNTER → 2023-03-08 13:03 | Outpatient (BNVA) | payer OTHER, SELFPAY | PROVIDERS: Visit Provider Internal Medicine | DX: I49.3 Ventricular premature depolarization (principal); I10 Essential (primary) hypertension; Z98.84 Bariatric surgery status | CPT/HCPCS: 99212 ==

== ENCOUNTER 2023-06-08 07:55 | Outpatient (REF) | payer OTHER, SELFPAY ==
[2023-06-08 09:41] LABS: Alanine Aminotransferase 12 U/L (0-31); Alkaline Phosphatase 62 U/L (39-117); Anion Gap 14 (12-20); Aspartate Amino Transferase 14 U/L (5-31); Bilirubin Total 0.3 mg/dL (0.0-1.0); Blood Urea Nitrogen 11 mg/dL (9-16); Calcium 9.3 mg/dL (8.4-10.2); Carbon Dioxide 26 mmol/L (22-29); Chloride 106 mmol/L (96-108); Cholesterol 230 mg/dL (<200); Estimated Glomerular Filt Rate > 60; Glucose Random 89 mg/dL (60-115); HDL Cholesterol 72 mg/dL (>40); LDL Cholesterol Calculated 132 mg/dL (<100); Potassium 3.6 mmol/L (3.3-5.1); Sodium 142 mmol/L (135-145); Triglycerides 130 mg/dL (<150)
== END 2023-06-08 07:56 | disposition home or self-care (01) ==
LOC: HO.LAB 07:55
PROVIDERS: PCP Internal Medicine; Visit Provider Internal Medicine
DX: E78.00 Pure hypercholesterolemia, unspecified (principal)
CPT/HCPCS: 36415; 80053; 80061

== ENCOUNTER 2023-06-15 08:52 | Outpatient (AMB) | payer OTHER, SELFPAY ==
--- NOTE | 2023-06-15 09:05 | A.OFFPC_ITS ---
Vital Signs 06/15/23 09:06 Height 4 ft 11.5 in Weight 168 lb BMI 33.4 BP 148/98 H Blood Pressure Location Lt brachial Position Sitting Pulse 92 Pulse Source Pulse Oximeter Pulse Oximetry (%) 98 Oxygen Delivery Method Room Air Intake Visit Reasons: Annual Exam+ NEEDS PHQ9 Yunior/ INTERPRET. Allergies lisinopril [LISINOPRIL] Allergy (Intermediate, Verified 06/15/23 09:06) SWELLING/BLURRY VISION house dust Allergy (Mild, Verified 06/15/23 09:06) Hives Medication List - Last Reconciled 06/15/23 by Nicole Velazco MD [id number] 50-300-40 mg 1 cap PO Q8H PRN cyanocobalamin (vitamin B-12) 1,000 mcg PO DAILY fluoxetine 20 mg PO BID gauze bandage (Kerlix) As directed lactulose 20 grams (30 mL) PO BID lorazepam 0.5 mg PO DAILY PRN losartan 25 mg PO DAILY magnesium 200 mg PO DAILY 90 days naproxen 500 mg PO BID PRN pantoprazole 40 mg PO DAILY@0630 psyllium husk (Fiber (psyllium husk)) 0.4 grams PO BEDTIME PRN Shower Chair As directed tramadol 50 mg PO DAILY PRN trazodone 150 mg PO BEDTIME PRN Tobacco use date assessed: 09/23/22 Dental Screening Dental Screen Date: 06/15/23 Did you have a dental visit in the last 12 months?: Yes Did you have a dental problem in the last 6 months where you did not have access to dental care?: No Was dental information given to patient?: Patient has dentist HPI Annual Exam+ NEEDS PHQ9 Yunior/ INTERPRET. HPI Details 53-year-old obese female with a history of laparoscopic sleeve gastrectomy April 2020, diabetes mellitus hypertension generalized anxiety disorder hypercholesterol E last seen in February 2023. Patient was advised to get mammogram done colon cancer screening cervical cancer screen. 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 Mother Depression Anxiety Asthma Diabetes Hypertension Brother Bipolar 1 disorder Sister No problems noted. Sister No problems noted. Sister No problems noted. Son No problems noted. Son No problems noted. Daughter No problems noted. Maternal Grandmother Lymphoma Other FH: mental illness Substance use Social History Household Members: Children Housing: House Do you presently have visiting nurse or other home services: No Alcohol intake: never Patient Tobacco Use Status: Never used Tobacco e-Cigarette/Vaping Use: Never Used Second Hand Smoke Exposure: No Advance Directives Date on File: 08/16/22 service: No Current occupational status: employed Current occupational exposures/hazards: No Cognitive needs: No Hearing needs: No Vision needs: Yes Questionnaire PHQ-9 Over the last 2 weeks, how often have you been bothered by any of the following problems? 1. Little interest or pleasure in doing things: several days 2. Feeling down, depressed, or hopeless: several days 3. Trouble falling or staying asleep, or sleeping too much: several days 4. Feeling tired or having little energy: several days 5. Poor appetite or overeating: not at all 6. Feeling bad about yourself - or that you are a failure or have let yourself or your family down: not at all 7. Trouble concentrating on things, such as reading the newspaper or watching television: not at all 8. Moving or speaking so slowly that other people could have noticed. Or the op posite - being so fidgety or restless that you have been moving around a lot more than usual: not at all 9. Thoughts that you would be better off or of hurting yourself in some way: not at all Total score: 4 Source: Developed by Drs. Eleuterio Mata, Sonia Grimes, Constantin Giron and colleagues, with an educational radha from [employer] [facility]. Thrive Questionnaire Date Thrive assessed: 11/13/22 AUDIT C Alcohol Use Questionnaire (AUDIT-C) 1. How often do you have a drink containing alcohol?: Never 3. How often do you have six or more drinks on one occasion?: Never Total Score: 0 ALAYNA-7 AMB Questionnaire ALAYNA-7 Date ALAYNA - 7 assessed: 11/13/22 Source: Developed by Drs. Eleuterio Mata, Sonia Grimes, Constantin Giron and colleagues, with an educational radha from [facility]. Review of Systems Const Denies poor appetite and Denies weakness Eyes Denies no additional complaints ENT Reports Normal hearing present, Denies dizziness, Denies nasal congestion, Denies tinnitus and Denies sore throat Card Denies chest pain, Denies syncope, Denies rapid heart rate and Denies dyspnea Resp Denies cough and Denies dyspnea GI Denies change in stool character, Reports constipation, Denies diarrhea, Denies nausea and Denies vomiting Denies urinary frequency, Denies difficulty voiding and Denies dysuria Neuro Reports Normal hearing present, Denies confusion, Denies dizziness, Denies syncope and Denies weakness Psych Denies confusion Physical exam (Primary Care) Vital Signs: Last Vital Signs Pulse 92 06/15/23 09:06 BP 148/98 H 06/15/23 09:06 Pulse Ox 98 06/15/23 09:06 Oxygen Delivery Method Room Air 06/15/23 09:06 BMI result Body Mass Index 33.4 Tobacco/Smoking Status: Tobacco use Status Tobacco use date assessed 09/23/22 06/15/23 09:07 Patient Tobacco Use Status Never used Tobacco 06/15/23 09:07 e-Cigarette/Vaping Use Never Used 06/15/23 09:07 PHQ-9: PHQ-9 Score PHQ-9: Total score 4 06/15/23 09:07 Thrive Assessment: Date of Thrive Assessment Date Thrive assessed 11/13/22 06/15/23 09:07 Const General: alert and awake; No confusion Orientation/consciousness: No confusion HENMT Head: Yes normocephalic Ears: external ears normal and TM's normal bilaterally Face and sinus: Yes normal facial exam Mouth: moist mucous membranes Throat: Yes tonsils normal Eyes Conjunctivae: conjunctivae normal Pupils: Equal, round and reactive pupils present and Pupil accommodation reflex normal Direct Ophthalmoscopy: normal light reflex Neck Neck: No lymphadenopathy Thyroid: Thyroid normal Chest Chest palpation & inspection: normal inspection of the chest Resp Effort & Inspection: normal respiratory effort and no audible wheezes Auscultation: clear to auscultation bilaterally, no crackles, no wheezes and lung sounds not diminished Cardio Rate: regular rate Rhythm: regular rhythm Peripheral pulses: radial pulses present and dorsalis pedis present GI Palpation (GI): no masses Auscultation: normal bowel sounds and normoactive bowel sounds Rectal Exam - Female: deferred Skin General skin exam: no rashes or lesions noted Rashes: no rashes Neuro General: deep tendon reflexes 2+ bilaterally and No confusion Cranial nerves: Yes Equal, round and reactive pupils present, Yes Midline tongue present, Yes Normal hearing present and Yes Ability to bilaterally elevate shoulders present Cognition (Neuro): normal cognition Gait exam (Neuro): Normal gait present Motor exam (neuro): 5/5 motor strength present throughout Deep tendon reflexes (DTR's): Right brachioradialis reflex intensity grade: 2+, Left brachioradialis reflex intensity grade: 2+, Right patellar reflex intensity grade: 2+ and Left patellar reflex intensity grade: 2+ Extrem General: No edema Assessment and Plan Assessment & Plan (1) Annual physical exam: Code(s): Z00.00 - Encounter for general adult medical examination without abnormal findings (2) Status post laparoscopic sleeve gastrectomy: Comment: April 2020 Code(s): Z98.84 - Bariatric surgery status Plan: Continue with diet and exercise (3) Essential hypertension: Code(s): I10 - Essential (primary) hypertension Plan: Blood pressure problem (4) Obesity (BMI 30.0-34.9): Code(s): E66.9 - Obesity, unspecified Plan: Diet and exercise (5) Type 2 diabetes mellitus with hyperglycemia: Code(s): E11.65 - Type 2 diabetes mellitus with hyperglycemia Qualifiers: Diabetes mellitus pediatric oncologist insulin use: without pediatric oncologist use Qualified Code(s): E11.65 - Type 2 diabetes mellitus with hyperglycemia Plan: Decrease the amount of carbohydrate intake, pasta, bread, rice and potatoes are all sugar and that is aside from all the sweet stuff, remember that fruits are good but they are Sweet also. (6) Generalized anxiety disorder: Comment: Declined referral for counseling presently. Code(s): F41.1 - Generalized anxiety disorder Plan: Continue with present medication (7) Hyperlipidemia: Code(s): E78.5 - Hyperlipidemia, unspecified Qualifiers: Hyperlipidemia type: pure hypercholesterolemia Qualified Code(s): E78.00 - Pure hypercholesterolemia, unspecified Plan: Avoid fried foods, chicken skin, eggs, butter margarine, pastries and meat. Be it pork or beef they have a lot of cholesterol LDL goal of less than 130 and triglyceride of less than 150 (8) Colon cancer screening: Code(s): Z12.11 - Encounter for screening for malignant neoplasm of colon Plan: Reminded about the Gastroenterology referral (9) Breast cancer screening by mammogram: Code(s): Z12.31 - Encounter for screening mammogram for malignant neoplasm of breast Orders: Orders MM tomosynthesis screening BI Today Z12. - Encounter for screening mammogram for malignant neoplasm of breast Medications: New semaglutide (Rybelsus) 3 mg PO DAILY 30 days 30 tabs 5RF E11.65 - Type 2 diabetes mellitus with hyperglycemia losartan 25 mg PO DAILY 30 tabs 3RF I10 - Essential (primary) hypertension Refilled psyllium husk (Fiber (psyllium husk)) 0.4 grams PO BEDTIME PRN 30 caps 0RF constipation K59.00 - Constipation, unspecified Coding Level of Care Code Est Pt Prev Care 40-64y(01449) Diagnoses Annual physical exam Z00.00 Status post laparoscopic sleeve gastrectomy Z98.84 Essential hypertension I10 Obesity (BMI 30.0-34.9) E66.9 Type 2 diabetes mellitus with hyperglycemia, without long-term current use of insulin E11.65 Diabetes mellitus pediatric oncologist insulin use: without pediatric oncologist use Generalized anxiety disorder F41.1 Pure hypercholesterolemia E78.00 Hyperlipidemia type: pure hypercholesterolemia Colon cancer screening Z12.11 Breast cancer screening by mammogram Z.
[2023-06-15 09:06] VITALS: BP 148/98; PULSE 92; O2SAT 98; BMI 33.4
== END 2023-06-15 09:59 | disposition home or self-care (01) ==
PROVIDERS: Visit Provider Internal Medicine
DX: Z00.00 Encounter for general adult medical examination without abnormal findings (principal); E66.9 Obesity, unspecified; Z68.33 Body mass index [BMI] 33.0-33.9, adult; E11.65 Type 2 diabetes mellitus with hyperglycemia
CPT/HCPCS: 99396

== ENCOUNTER 2023-08-02 13:59 | Outpatient (AMB) | payer OTHER, SELFPAY ==
[2023-08-02 14:00] VITALS: BP 142/70; PULSE 84; O2SAT 98; BMI 34.4
--- NOTE | 2023-08-02 14:00 | A.OFFPC_ITS ---
Vital Signs 08/02/23 14:00 Height 4 ft 11.5 in Weight 173 lb 0.2 oz BMI 34.4 BP 142/70 H Blood Pressure Location Lt brachial Position Sitting Pulse 84 Pulse Source Pulse Oximeter Pulse Oximetry (%) 98 Oxygen Delivery Method Room Air Intake Visit Reasons: 2 month f/u Food Or Baggage Handling [place] Required: No Allergies lisinopril [LISINOPRIL] Allergy (Intermediate, Verified 08/02/23 14:07) SWELLING/BLURRY VISION house dust Allergy (Mild, Verified 08/02/23 14:07) Hives Tobacco use date assessed: 08/02/23 Dental Screening Dental Screen Date: 08/02/23 Did you have a dental visit in the last 12 months?: No Did you have a dental problem in the last 6 months where you did not have access to dental care?: No HPI 2 month f/u HPI Details 53-year-old obese female status post lap aroscopic sleeve gastrectomy April 2020 having history of diabetes mellitus hypertension hypercholesterolemia generalized anxiety disorder last seen in May 2023 patient is here for follow-up [facility] Medical History (Updated 08/02/23 @ 14:45 by Nicole Velazco MD) Constipation Cervical cancer screening Breast cancer screening Essential hypertension PVC (premature ventricular contraction) 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 Mother Depression Anxiety Asthma Diabetes Hypertension Brother Bipolar 1 disorder Sister No problems noted. Sister No problems noted. Sister No problems noted. Son No problems noted. Son No problems noted. Daughter No problems noted. Maternal Grandmother Lymphoma Other FH: mental illness Substance use Social History Household Members: Children Housing: House Do you presently have visiting nurse or other home services: No Alcohol intake: never Patient Tobacco Use Status: Never used Tobacco e-Cigarette/Vaping Use: Never Used Second Hand Smoke Exposure: No Advance Directives Date on File: 08/16/22 service: No Current occupational status: employed Current occupational exposures/hazards: No Cognitive needs: No Hearing needs: No Vision needs: Yes Questionnaire Thrive Questionnaire Date Thrive assessed: 11/13/22 AUDIT C Alcohol Use Questionnaire (AUDIT-C) 1. How often do you have a drink containing alcohol?: Never 3. How often do you have six or more drinks on one occasion?: Never Total Score: 0 ALAYNA-7 AMB Questionnaire ALAYNA-7 Date ALAYNA - 7 assessed: 11/13/22 Source: Developed by Drs. Eleuterio Mata, Sonia Grimes, Constantin Giron and colleagues, with an educational radha from [employer]. Physical exam (Primary Care) Vital Signs: Last Vital Signs Pulse 84 08/02/23 14:00 BP 142/70 H 08/02/23 14:00 Pulse Ox 98 08/02/23 14:00 Oxygen Delivery Method Room Air 08/02/23 14:00 BMI result Body Mass Index 34.4 Tobacco/Smoking Status: Tobacco use Status Tobacco use date assessed 08/02/23 08/02/23 14:01 Patient Tobacco Use Status Never used Tobacco 08/02/23 14:01 e-Cigarette/Vaping Use Never Used 08/02/23 14:01 Thrive Assessment: Date of Thrive Assessment Date Thrive assessed 11/13/22 08/02/23 14:01 Const General: alert; No acute distress Eyes Conjunctivae: conjunctivae normal Resp Auscultation: clear to auscultation bilaterally Cardio Rate: regular rate Rhythm: regular rhythm GI Inspection: Yes normal to inspection Extrem General: Yes normal to inspection and No edema Results AMB Hemoglobin A1c AMB Hemoglobin A1c 5.2 % Last Edit by ADRIANNA Schwarz on 08/02/23 14:23 Results Reviewed Results Reviewed: Laboratory Last Values Hgb A1c (Clinic) 5.2 % (4.0-6.0) 08/02/23 13:31 Assessment and Plan Assessment & Plan (1) Status post laparoscopic sleeve gastrectomy: Comment: April 2020 Code(s): Z98.84 - Bariatric surgery status Plan: Keep active keep well hydrated eat healthy (2) Type 2 diabetes mellitus with hyperglycemia: Comment: [phone] [facility]. 01/2023 Code(s): E11.65 - Type 2 diabetes mellitus with hyperglycemia Qualifiers: Diabetes mellitus intermediate teacher insulin use: without skilled nursing use Qualified Code(s): E11.65 - Type 2 diabetes mellitus with hyperglycemia Plan: Decrease the amount of carbohydrate intake, pasta, bread, rice and potatoes are all sugar and that is aside from all the sweet stuff, remember that fruits are good but they are Sweet also. Hemoglobin A1c goal of less than 6.5 (3) Hyperlipidemia: Code(s): E78.5 - Hyperlipidemia, unspecified Qualifiers: Hyperlipidemia type: pure hypercholesterolemia Qualified Code(s): E78.00 - Pure hypercholesterolemia, unspecified Plan: Avoid fried foods, chicken skin, eggs, butter margarine, pastries and meat. Be it pork or beef they have a lot of cholesterol LDL goal of less than 130 and triglyceride of less than 150 (4) Essential hypertension: Code(s): I10 - Essential (primary) hypertension Plan: Continue with blood pressure medication. Decrease salt intake and exercise presently on losartan 25 mg once a day. monitor BP at home (5) Generalized anxiety disorder: Comment: Declined referral for counseling presently. Code(s): F41.1 - Generalized anxiety disorder Plan: Continue with therapy (6) Obesity (BMI 30.0-34.9): Code(s): E66.9 - Obesity, unspecified Plan: Diet and exercise (7) Colon cancer screening: Code(s): Z12.11 - Encounter for screening for malignant neoplasm of colon (8) Constipation: Code(s): K59.00 - Constipation, unspecified Orders: Orders AMB Hemoglobin A1c Today E11.65 - Type 2 diabetes mellitus with hyperglycemia Comprehensive Met. Panel 3 Months E11.65 - Type 2 diabetes mellitus with hyperglycemia Hemoglobin A1c 3 Months E11.65 - Type 2 diabetes mellitus with hyperglycemia Thyroid Stimulating Hormone 3 Months E11.65 - Type 2 diabetes mellitus with hyperglycemia Complete Blood Count Auto Diff 3 Months E11.65 - Type 2 diabetes mellitus with hyperglycemia Lipid Panel 3 Months E11.65 - Type 2 diabetes mellitus with hyperglycemia, E78.00 - Pure hypercholesterolemia, unspecified Microalbumin, Random (w Creat) 3 Months E11.65 - Type 2 diabetes mellitus with hyperglycemia Creatinine Urine 3 Months E11.65 - Type 2 diabetes mellitus with hyperglycemia Medications: New lactulose 30 grams (45 mL) PO DAILY 30 days 1,350 mL 2RF K59.00 - Constipation, unspecified Changed From dulaglutide (Trulicity) 0.75 mg (0.5 mL) subcut QWEEK 2 mL 0RF E11.65 - Type 2 diabetes mellitus with hyperglycemia, K59.00 - Constipation, unspecified, Z12.11 - Encounter for screening for malignant neoplasm of colon To dulaglutide 1.5 mg (0.5 mL) subcut QWEEK 30 days 2.5 mL 4RF E11.65 - Type 2 diabetes mellitus with hyperglycemia, K59.00 - Constipation, unspecified, Z12.11 - Encounter for screening for malignant neoplasm of colon Coding Level of Care Code Est Pt Level 4 (99414) Diagnoses Status post laparoscopic sleeve gastrectomy Z98.84 Type 2 diabetes mellitus with hyperglycemia, without long-term current use of insulin E11.65 Diabetes mellitus intermediate teacher insulin use: without skilled nursing use Pure hypercholesterolemia E78.00 Hyperlipidemia type: pure hypercholesterolemia Essential hypertension I10 Generalized anxiety disorder F41.1 Obesity (BMI 30.0-34.9) E66.9 Colon cancer screening Z12.11 Constipation K59.00
== END 2023-08-02 15:38 | disposition home or self-care (01) ==
PROVIDERS: PCP Internal Medicine; Visit Provider Internal Medicine
DX: I10 Essential (primary) hypertension (principal); E11.65 Type 2 diabetes mellitus with hyperglycemia; E66.9 Obesity, unspecified; Z68.34 Body mass index [BMI] 34.0-34.9, adult; E78.00 Pure hypercholesterolemia, unspecified; F41.1 Generalized anxiety disorder; K59.00 Constipation, unspecified; Z98.84 Bariatric surgery status
CPT/HCPCS: 83036; 99214

== ENCOUNTER 2023-09-24 10:48 | Outpatient (AMB) | payer OTHER, SELFPAY ==
[2023-09-24 10:50] VITALS: BP 147/94; PULSE 80; BMI 32.6
--- NOTE | 2023-09-24 10:50 | A.OFFVIS_ITS ---
Intake Vital Signs 09/24/23 10:50 Height 4 ft 11.5 in Weight 164 lb BMI 32.6 BP 147/94 H Blood Pressure Location Rt brachial Position Sitting Pulse 80 Intake Visit Reasons: Colonoscopy Screening Intake Note: Pt c/o; reports [employer] Required: No Accompanied by: Self / Same As Patient Allergies lisinopril [LISINOPRIL] Allergy (Intermediate, Verified 09/24/23 10:56) SWELLING/BLURRY VISION house dust Allergy (Mild, Verified 09/24/23 10:56) Hives HPI Colonoscopy Screening HPI Details 53 year old? female with past medical hi story of constipation, B12 deficiency, abdominoplasty, dehiscence of abdominal wound, hypertension, status post laparoscopic sleeve gastrectomy, diabetes, hyperlipidemia is here today for pre colonoscopy screening.? Patient was sent to us by her PCP.? This is her first colonoscopy screening.? Patient reports history reflux on pantoprazole. Patient states that for the most part her symptoms are suppressed. Patient reports long history of constipation, states that even taking lactulose is not helping her. Patient states that when she takes Dulcolax tablets she will have a bowel movement, however she is not using them every day. Patient had dehiscence of surgical wound of her abdomen and was hospitalized and septic in August of 2022.? Denies any personal or family history of gastrointestinal disease, colon polyps, or cancer.? Denies history of difficulty with sedation or anesthesia in the past.? Negative for history of sleep apnea.? Denies any history of cardiac, renal, pulmonary, or hepatic disease.?? No history of infectious? diseases like hepatitis A, B, C, HIV or tuberculosis.? Patient is not on any anticoagulation therapy. 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 Mother Depression Anxiety Asthma Diabetes Hypertension Brother Bipolar 1 disorder Sister No problems noted. Sister No problems noted. Sister No problems noted. Son No problems noted. Son No problems noted. Daughter No problems noted. Maternal Grandmother Lymphoma Other FH: mental illness Substance use Social History Household Members: Children Housing: House Do you presently have visiting nurse or other home services: No Alcohol intake: never Patient Tobacco Use Status: Never used Tobacco e-Cigarette/Vaping Use: Never Used Second Hand Smoke Exposure: No Advance Directives Date on File: 08/16/22 service: No Current occupational status: employed Current occupational exposures/hazards: No Cognitive needs: No Hearing needs: No Vision needs: Yes Review of Systems Const Denies weight gain and Denies weight loss ENT Reports no additional complaints, Denies dysphagia and Denies odynophagia Card Reports no additional complaints Resp Reports no additional complaints GI Denies abdominal pain, Denies belching, Denies melena, Denies bloating, Reports constipation, Denies dysphagia, Denies excessive flatus, Denies dyspepsia, Denies heartburn, Denies diarrhea, Denies loose stools, Denies nausea, Denies odynophagia and Denies vomiting Reports no additional complaints Musc Reports no additional complaints Neuro Reports no additional complaints Psych Reports no additional complaints Endo Reports no additional complaints Physical Exam Vital Signs: Last Vital Signs Pulse 80 09/24/23 10:50 BP 147/94 H 09/24/23 10:50 BMI result Body Mass Index 32.6 Const General: healthy appearing, no acute distress and well developed Nutritional Appearance: well nourished Orientation/consciousness: patient oriented x3 Resp Effort & Inspection: normal respiratory effort, able to speak in complete sentences, no tracheal deviation and symmetric chest movement Auscultation: clear to auscultation bilaterally Cardio Rate: regular rate GI Inspection: No distended and Yes obesity Palpation (GI): Soft to palpation, not firm, nontender and No hepatosplenomegaly present Auscultation: normal bowel sounds General: Yes no CVA tenderness Back/Spine/Pelvis Back: no CVA tenderness Skin General skin exam: elasticity normal, turgor normal and dry skin Neuro General: patient oriented x3 Psych Appearance: grossly normal Mental Status: mental status grossly normal Assessment & Plan Assessment & Plan (1) Colon cancer screening: Code(s): Z12.11 - Encounter for screening for malignant neoplasm of colon (2) Constipation: Code(s): K59.00 - Constipation, unspecified Qualifiers: Constipation type: chronic idiopathic constipation Qualified Code(s): K59.04 - Chronic idiopathic constipation (3) GERD (gastroesophageal reflux disease): Code(s): K21.9 - Gastro-esophageal reflux disease without esophagitis Qualifiers: Esophagitis presence: esophagitis presence not specified Qualified Code(s): K21.9 - Gastro-esophageal reflux disease without esophagitis Plan Patient denies any cardiac or respiratory symptoms.? Denies any issues with anesthesia in the past.? Denies any history of sleep apnea.? Not on any anticoagulation therapy.? No family or personal history of colon cancer or deb yps.? Patient denies melena, hematochezia, unintentional weight loss or ribbon like stools.? Patient will start taking Dulcolax tablets every day to help her move her bowels. She will return in 6 weeks so we can re-evaluate her and discuss the prep. Patient will also be sent for upper endoscopy. Long history of PPI use, history of gastric polyp, occasional dyspepsia and history of gastric sleeve. Patient is agreeable to this plan and verbalizes understanding of instructions. She was given the opportunity to ask questions and all questions answered. Thank you for allowing me to participate in her care Medications: New bisacodyl (Dulcolax (bisacodyl)) 10 mg (2 x 5 mg) PO BEDTIME 180 tabs 4RF constipation Coding Level of Care Code New Pt Level 4 (21084) Diagnoses Colon cancer screening Z12.11 Chronic idiopathic constipation K59.04 Constipation type: chronic idiopathic constipation Gastroesophageal reflux disease, unspecified whether esophagitis present K21.9 Esophagitis presence: esophagitis presence not specified Time Spent (min) 45 Comment 30 minutes spent with patient and additional 15 minutes spent reviewing her records
== END 2023-09-24 11:31 | disposition home or self-care (01) ==
PROVIDERS: PCP Internal Medicine; Visit Provider Nurse Practitioner Family
DX: Z12.11 Encounter for screening for malignant neoplasm of colon (principal); K59.04 Chronic idiopathic constipation; K21.9 Gastro-esophageal reflux disease without esophagitis; Z01.818 Encounter for other preprocedural examination
CPT/HCPCS: 99204

== ENCOUNTER → 2023-09-24 10:48 | Outpatient (BNVA) | payer OTHER, SELFPAY | PROVIDERS: PCP Internal Medicine; Visit Provider Nurse Practitioner Family | DX: Z12.11 Encounter for screening for malignant neoplasm of colon (principal); K59.04 Chronic idiopathic constipation; K21.9 Gastro-esophageal reflux disease without esophagitis | CPT/HCPCS: 99202 ==

== ENCOUNTER 2023-11-15 14:17 | Outpatient (AMB) | payer OTHER, SELFPAY ==
--- NOTE | 2023-11-15 14:20 | MHC.OFFVIS ---
Intake Vital Signs 11/15/23 14:23 Height 4 ft 11 in Weight 164 lb BMI 33.1 BP 151/88 H Blood Pressure Location Lt brachial Position Sitting Pulse 60 Pulse Source Pulse Oximeter Pulse Oximetry (%) 99 Oxygen Delivery Method Room Air Intake Visit Reasons: discuss prep per darryn Allergies lisinopril [LISINOPRIL] Allergy (Intermediate, Verified 11/15/23 14:22) SWELLING/BLURRY VISION house dust Allergy (Mild, Verified 11/15/23 14:22) Hives HPI discuss prep per darryn HPI Details LAST VISIT Colon cancer screening Constipation GERD (gastroesophageal reflux disease) Plan Patient denies any cardiac or respiratory symptoms.? Denies any issues with anesthesia in the past.? Denies any history of sleep apnea.? Not on any anticoagulation therapy.? No family or personal history of colon cancer or polyps.? Patient denies melena, hematochezia, unintentional weight loss or ribbon like stools.? Patient will start taking Dulcolax tablets every day to help her move her bowels. She will return in 6 weeks so we can re-evaluate her and discuss the prep. Patient will also be sent for upper endoscopy. Long history of PPI use, history of gastric polyp, occasional dyspepsia and history of gastric sleeve. Patient is agreeable to this plan and verbalizes understanding of instructions. She was given the opportunity to ask questions and all questions answered. ? Thank you for allowing me to participate in her care Medications New bisacodyl (Dulcolax (bisacodyl)) 10 mg (2 x 5 mg) PO BEDTIME 180 tabs 4RF constipation TODAY'S VISIT Patient is here today for follow-up and to discuss going for colonoscopy and upper endoscopy. Patient reports that she is taking Dulcolax 2 tablets every evening and is able to move her bowels better. Patient denies any abdominal pain or discomfort. Denies any melena, hematochezia, unintentional weight loss or ribbon like stools. Denies any issues with anesthesia in the past. No history of sleep apnea. Not on any anticoagulation medication. Patient is taking pantoprazole every morning for acid reflux. Continues to have occasional postprandial acid reflux depending on what she eats. Patient reports that she does not eat late at night. Patient denies any cardiac or respiratory symptoms. 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 Mother Depression Anxiety Asthma Diabetes Hypertension Brother Bipolar 1 disorder Sister No problems noted. Sister No problems noted. Sister No problems noted. Son No problems noted. Son No problems noted. Daughter No problems noted. Maternal Grandmother Lymphoma Other FH: mental illness Substance use Social History Household Members: Children Housing: House Do you presently have visiting nurse or other home services: No Alcohol intake: never Patient Tobacco Use Status: Never used Tobacco e-Cigarette/Vaping Use: Never Used Second Hand Smoke Exposure: No Advance Directives Date on File: 08/16/22 service: No Current occupational status: employed Current occupational exposures/hazards: No Cognitive needs: No Hearing needs: No Vision needs: Yes Review of Systems Const Denies weight gain and Denies weight loss ENT Reports no additional complaints, Denies dysphagia and Denies odynophagia Card Reports no additional complaints Resp Reports no additional complaints GI Denies abdominal pain, Denies belching, Denies melena, Denies bloating, Denies change in bowel habits, Denies dysphagia, Denies excessive flatus, Denies dyspepsia, Reports heartburn (Occasional), Denies diarrhea, Denies loose stools, Denies nausea, Denies odynophagia and Denies vomiting Musc Reports no additional complaints Neuro Reports no additional complaints Psych Reports no additional complaints Endo Reports no additional complaints Physical Exam Const General: healthy appearing and no acute distress Nutritional Appearance: obese Orientation/consciousness: patient oriented x3 Resp Effort & Inspection: normal respiratory effort, able to speak in complete sentences, no tracheal deviation and symmetric chest movement Auscultation: clear to auscultation bilaterally Cardio Rate: regular rate GI Inspection: Yes normal to inspection, No distended and Yes obesity Palpation (GI): Soft to palpation, not firm, nontender and No hepatosplenomegaly present Auscultation: normal bowel sounds General: Yes no CVA tenderness Back/Spine/Pelvis Back: no CVA tenderness Skin General skin exam: elasticity normal, turgor normal and dry skin Neuro General: patient oriented x3 Psych Appearance: grossly normal Mental Status: mental status grossly normal Assessment & Plan Assessment & Plan (1) GERD (gastroesophageal reflux disease): Code(s): K21.9 - Gastro-esophageal reflux disease without esophagitis Qualifiers: Esophagitis presence: esophagitis presence not specified Qualified Code(s): K21.9 - Gastro-esophageal reflux disease without esophagitis (2) Colon cancer screening: Code(s): Z12.11 - Encounter for screening for malignant neoplasm of colon Plan Continue pantoprazole half an hour before breakfast. Discussed with patient avoiding dietary triggers and late night snacking. Staying upright for minimum 3 hours after meals discussed with patient. Patient will be sent for upper endoscopy. Long history of PPI use. History of laparoscopic sleeve gastrectomy. Patient will be sent for colonoscopy. What to expect before during and after procedure discussed with patient. Continue taking Dulcolax daily. Split MiraLax prep with 4 tablets of Dulcolax day before procedure. The importance of clear liquid diet and good bowel prep discussed with patient. Patient denies any cardiac or respiratory symptoms. No history of sleep apnea. Not on any anticoagulation medication. No issues with anesthesia in the past. I will see her after the procedure, sooner on as needed basis. Patient is agreeable to this plan and verbalizes understanding of instructions. She was given the opportunity to ask questions and all questions answered. Thank you for allowing me to participate in her care Coding Level of Care Code Est Pt Level 3 (87975) Diagnoses Gastroesophageal reflux disease, unspecified whether esophagitis present K21.9 Esophagitis presence: esophagitis presence not specified Colon cancer screening Z12.11 Time Spent (min) 25 Comment 15 minutes spent with patient and additional 10 minutes spent reviewing her records
[2023-11-15 14:23] VITALS: BP 151/88; PULSE 60; O2SAT 99; BMI 33.1
== END 2023-11-15 16:07 | disposition home or self-care (01) ==
PROVIDERS: PCP Internal Medicine; Visit Provider Nurse Practitioner Family
DX: K21.9 Gastro-esophageal reflux disease without esophagitis (principal); Z12.11 Encounter for screening for malignant neoplasm of colon
CPT/HCPCS: 99213

== ENCOUNTER → 2023-11-15 14:17 | Outpatient (BNVA) | payer OTHER, SELFPAY | PROVIDERS: PCP Internal Medicine; Visit Provider Nurse Practitioner Family | DX: K21.9 Gastro-esophageal reflux disease without esophagitis (principal); Z12.11 Encounter for screening for malignant neoplasm of colon | CPT/HCPCS: 99212 ==

== ENCOUNTER 2023-11-23 07:52 | Day surgery (SDC) | payer OTHER, SELFPAY ==
[2023-11-19 08:10] VITALS: BMI 33.1
--- NOTE | 2023-11-22 10:47 | HO.ANESPROP2 ---
Documented by User: Mena Dawkins NP 11/22/23 10:48 HPI - Anesthesia Eval Consult details Narrative: 53yo F for Upper Endoscopy and Colonoscopy Anesthesia Pre-Procedure Meds Is the patient on any of the following meds?: Dulaglutide (Trulicity) PMFSH Active Problems Active Problems: All Active Problems GERD (gastroesophageal reflux disease) (Acute) Constipation (Acute) Breast cancer screening by mammogram (Acute) Lower abdominal pain (Acute) Anemia (Acute) Dehiscence of external surgical wound (Acute) Vitamin B 12 deficiency (Acute) History of mastopexy (Acute) H/O abdominoplasty (Acute) Obesity (BMI 30.0-34.9) (Acute) Excess skin (Acute) Otitis externa (Acute) Colon cancer screening (Acute) Annual physical exam (Acute) Generalized anxiety disorder (Acute) Status post laparoscopic sleeve gastrectomy (Acute) Essential hypertension (Acute) PVC (premature ventricular contraction) (Acute) Overweight (BMI 25.0-29.9) (Acute) Migraine (Acute) Type 2 diabetes mellitus with hyperglycemia (Acute) 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 Mother Depression Anxiety Asthma Diabetes Hypertension Brother Bipolar 1 disorder Sister No problems noted. Sister No problems noted. Sister No problems noted. Son No problems noted. Son No problems noted. Daughter No problems noted. Maternal Grandmother Lymphoma Other FH: mental illness Substance use Family history of problems with anesthesia: No Surgical History Surgical History History of esophagogastroduodenoscopy (EGD) History of sleeve gastrectomy Hx of abdominal surgery History of abdominoplasty (07/21/22) History of mandibular surgery History of brain surgery Hx of hysterectomy Hx of chest tube placement History of Problems with Anesthesia: No Social History Social History Household Members: Children Housing: House Do you presently have visiting nurse or other home services: No Alcohol intake: never Patient Tobacco Use Status: Never used Tobacco e-Cigarette/Vaping Use: Never Used Second Hand Smoke Exposure: No Use of substances other than those prescribed or required for medical reasons: No Are you DNR?: No Advance Directives: No Advance Directives Information Provided: Yes Advance Directives Date on File: 08/16/22 service: No Current occupational status: employed Current occupational exposures/hazards: No Cognitive needs: No Hearing needs: No Vision needs: Yes Meds Allergies Allergy/AdvReac Type Severity Reaction Status Date / Time lisinopril [LISINOPRIL] Allergy Intermediate SWELLING/BLURRY Verified 11/15/23 14:22 VISION house dust Allergy Mild Hives Verified 11/15/23 14:22 Exam Height,Weight and Vital Signs: Height 4 ft 11 in Weight 74.389 kg Assessment and Plan Assessment Anesthesia Assessment: Chart Reviewed Final Anesthetic Review Family History of Problems with Anesthesia: No History of Problems with Anesthesia: No Documented by User: Sophia Arnold MD 11/23/23 09:04 HPI - Anesthesia Eval Anesthesia Pre-Procedure Meds If Yes to any meds - educate patient: Pt education - increased risk of aspiration PMFSH Past Medical History Medical History Seizure GERD (gastroesophageal reflux disease) Cervical cancer screening Breast cancer screening Constipation Essential hypertension PVC (premature ventricular contraction) 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 Mother Depression Anxiety Asthma Diabetes Hypertension Brother Bipolar 1 disorder Sister No problems noted. Sister No problems noted. Sister No problems noted. Son No problems noted. Son No problems noted. Daughter No problems noted. Maternal Grandmother Lymphoma Other FH: mental illness Substance use Surgical History Surgical History History of esophagogastroduodenoscopy (EGD) History of sleeve gastrectomy Hx of abdominal surgery History of abdominoplasty (07/21/22) History of mandibular surgery History of brain surgery Hx of hysterectomy Hx of chest tube placement Social History Social History Household Members: Children Housing: House Do you presently have visiting nurse or other home services: No Alcohol intake: never Patient Tobacco Use Status: Never used Tobacco e-Cigarette/Vaping Use: Never Used Second Hand Smoke Exposure: No Use of substances other than those prescribed or required for medical reasons: No Are you DNR?: No Advance Directives: No Advance Directives Information Provided: Yes Advance Directives Date on File: 08/16/22 service: No Current occupational status: employed Current occupational exposures/hazards: No Cognitive needs: No Hearing needs: No Vision needs: Yes Meds Allergies Allergy/AdvReac Type Severity Reaction Status Date / Time lisinopril [LISINOPRIL] Allergy Intermediate SWELLING/BLURRY Verified 11/15/23 14:22 VISION house dust Allergy Mild Hives Verified 11/15/23 14:22 Exam Airway Mallampati Class: II TM Dist: >3cm Neck ROM: Full Loose/Missing/Broken Teeth: No Heart: RRR Lungs: CTA Assessment and Plan Assessment Anesthesia Assessment: Anesthesia Plan Discussed Final Anesthetic Review NPO: Yes ASA Class: II Final Preanesthetic Review: Meds/Allgs Chart Reviewed, Consent Obtained/Reviewed and Anes Risks/Benef Reviewed Patient Risk: Low Procedure Risk: Intermediate Anesthetic Plan Anesthetic Plan: MAC: Disposition: Standard PACU
[2023-11-23 08:13] VITALS: BMI 34.3
--- NOTE | 2023-11-23 08:23 | MHC.SHP ---
Pre-Procedural Eval Section A - 24 Hr Update-Section A only Date of Service: 11/23/23 The patient is an INPATIENT: No The patient has been examined within 24 hours of the surgical procedure. The History & Physical has been completed within 30 days and I have reviewed it.: Yes Section B - Complete if H&P > 30 days Chief Complaint: GERD, history of sleeve gastrectomy, screening Allergies: Allergies Allergy/AdvReac Type Severity Reaction Status Date / Time lisinopril [LISINOPRIL] Allergy Intermediate SWELLING/BLURRY Verified 11/15/23 14:22 VISION house dust Allergy Mild Hives Verified 11/15/23 14:22 Plan Diagnosis/Plan: Unchanged I have reviewed the history and physical and performed a pertinent physical examination on my patient. No changes have occurred unless specified. Time Spent With Patient Time: Total time managing care of this patient today ____ minutes.
[2023-11-23 08:30] VITALS: BP 116/63; PULSE 76; RESP 15; TEMP 37; O2SAT 94
[2023-11-23] MEDS: Lactated Ringers 1,000 ML 100 ML IVCONT (08:40)
[2023-11-23 08:55] LABS: Glucose, Whole Blood 97 mg/dL (60-115)
--- NOTE | 2023-11-23 09:41 | P.OP_ITS ---
Operative Note Operative Note Date of Service: 11/23/23 Narrative: Procedure: Upper endoscopy and colonoscopy Indication: GERD, screening Endoscopist: Falguni Robin MD Anesthesia Provider: Jacquelyn Schaeffer CRNA Anesthesia type: MAC Instrument: [id number] and [id number] EGD Procedure:?? The procedure, indications, preparation and potential complications were reviewed with the patient, who indicated understanding and gave written informed consent to proceed. Physical exam was performed. The endoscope was introduced through the mouth, and advanced to the second part of duodenum. The mucosa was carefully examined on slow withdrawal of the endoscope. The patient tolerated the procedure well. There were no immediate complications.? EGD Findings:? * Esophagus:? Two small erosions at the GE junction with erythema. The Z-line was at 34 cm. There was a large hiatal hernia with the diaphragmatic hiatus at 38 cm. Cold forceps biopsies were taken from the lower esophagus. * Stomach:? The stomach was tubular in keeping with sleeve gastrectomy history. Erythema and small erosions in the gastric antrum were noted. Random cold forceps biopsies were taken to rule out H pylori. * Duodenum:? Normal duodenal mucosa to the extent examined. Cold forceps biopsies were taken from the duodenal bulb and 2nd portion of duodenum. Colonoscopy Procedure:? The patient was then turned for the colonoscopy. A digital rectal exam was performed which was normal.? A distal attachment cap was affixed to the tip of the scope and the colonoscope was then inserted through the anus and advanced through the colon and advanced to the cecum at 70 cm.? Appendiceal orifice and ileocecal valve were identified.? Mucosa was carefully examined under high definition white light as the instrument was slowly withdrawn in a retrograde panoramic fashion. Retroflexion was performed in rectum. The procedure was not difficult. There were no immediate obvious complications. The quality of the prep was BBPS: 2+2+2 = adequate Withdrawal time 12 minutes. Limitations: No limitations Findings: Mucosa: Liquid stool was noted throughout the colon which was flushed and suctioned. Normal colon and terminal ileum mucosa Protruding lesions: * Small internal hemorrhoids without stigmata of recent bleeding. Impression: 1. Grade A esophagitis 2. Hiatal hernia 3. Antral gastritis 4. Sleeve gastrectomy anatomy 5. Normal duodenum 6. Normal colon and terminal ileum mucosa 7. Internal hemorrhoids Recommendations:?? * Follow-up path results * If H pylori positive, will need treatment for eradication * Given persistent gastritis and esophagitis will switch protonix to nexium BID. * Avoid NSAIDs * Repeat colonoscopy in 5 years due to prep quality
[2023-11-23 09:45] VITALS: BP 99/69; PULSE 67; RESP 14; TEMP 36.1; O2SAT 95
[2023-11-23 10:00] VITALS: BP 119/76; PULSE 71; RESP 20; TEMP 36.3; O2SAT 97
== END 2023-11-23 10:30 | disposition home or self-care (01) ==
PROVIDERS: PCP Internal Medicine; Visit Provider Internal Medicine
PROC: (CPT 45378; principal; 2023-11-23 09:20)
DX: Z12.11 Encounter for screening for malignant neoplasm of colon (principal); K64.8 Other hemorrhoids; K21.9 Gastro-esophageal reflux disease without esophagitis; K20.80 Other esophagitis without bleeding; K29.50 Unspecified chronic gastritis without bleeding; K44.9 Diaphragmatic hernia without obstruction or gangrene; K90.9 Intestinal malabsorption, unspecified; I10 Essential (primary) hypertension; E11.39 Type 2 diabetes mellitus with other diabetic ophthalmic complication; E78.5 Hyperlipidemia, unspecified; Z79.899 Other long term (current) drug therapy; Z88.8 Allergy status to other drugs, medicaments and biological substances; Z98.84 Bariatric surgery status; Z90.3 Acquired absence of stomach [part of]
CPT/HCPCS: 45378; 43239; 82947; 88305; 88313; 88342; J2250; J2704; J3010

== ENCOUNTER → 2023-11-23 07:52 | Outpatient (BNV) | payer OTHER, SELFPAY | PROVIDERS: PCP Internal Medicine; Visit Provider Internal Medicine | DX: Z12.11 Encounter for screening for malignant neoplasm of colon (principal); K64.8 Other hemorrhoids; K21.00 Gastro-esophageal reflux disease with esophagitis, without bleeding; K29.70 Gastritis, unspecified, without bleeding; Z90.3 Acquired absence of stomach [part of]; Z98.84 Bariatric surgery status | CPT/HCPCS: 43239; 45378 ==

== ENCOUNTER 2023-12-10 08:54 | Outpatient (AMB) | payer OTHER, SELFPAY ==
[2023-12-10 09:13] VITALS: BP 127/73; PULSE 85; BMI 33.7
--- NOTE | 2023-12-10 09:13 | A.OFFVIS_ITS ---
Vital Signs 12/10/23 09:13 Height 4 ft 11 in Weight 167 lb 1.766 oz BMI 33.7 BP 127/73 Blood Pressure Location Lt brachial Position Sitting Pulse 85 Intake Visit Reasons: s/p colon Intake Note: Patient in office today n follow up s/p colonoscopy and EGD. CC: Patient reports constant lower abd pain s/p abdominoplasty and subsequent abdominoplasty rupture, but is having worsen lower abd pain after colonoscopy. Denies other GI symptoms today. 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 Discussed with patient avoiding dietary triggers and late night snacking. Staying upright for minimum 3 hours after meals discussed with patient. Patient will be sent for upper endoscopy. Long history of PPI use. History of laparoscopic sleeve gastrectomy. Patient will be sent for colonoscopy. What to expect before during and after procedure discussed with patient. Continue taking Dulcolax daily. Split MiraLax prep with 4 tablets of Dulcolax day before procedure. The importance of clear liquid diet and good bowel prep discussed with patient. Patient denies any cardiac or respiratory symptoms. No history of sleep apnea. Not on any anticoagulation medication. No issues with anesthesia in the past. I will see her after the procedure, sooner on as needed basis. Patient is agreeable to this plan and verbalizes understanding of instructions. She was given the opportunity to ask questions and all questions answered. ? UPPER ENDOSCOPY AND COLONOSCOPY EGD Findings:? * Esophagus:? Two small erosions at the GE junction with erythema. The Z-line was at 34 cm. There was a large hiatal hernia with the diaphragmatic hiatus at 38 cm. Cold forceps biopsies were taken from the lower esophagus. * Stomach:? The stomach was tubular in keeping with sleeve gastrectomy history. Erythema and small erosions in the gastric antrum were noted. Random cold forceps biopsies were taken to rule out H pylori. * Duodenum:? Normal duodenal mucosa to the extent examined. Cold forceps biopsies were taken from the duodenal bulb and 2nd portion of duodenum. Colonoscopy Findings: Mucosa: Liquid stool was noted throughout the colon which was flushed and suctioned. Normal colon and terminal ileum mucosa Protruding lesions: * Small internal hemorrhoids without stigmata of recent bleeding.Impression: 1. Grade A esophagitis 2. Hiatal hernia 3. Antral gastritis 4. Sleeve gastrectomy anatomy 5. Normal duodenum 6. Normal colon and terminal ileum mucosa 7. Internal hemorrhoids Recommendations:?? * Follow-up path results * If H pylori positive, will need treatment for eradication * Given persistent gastritis and esophagitis will switch protonix to nexium BID. * Avoid NSAIDs * Repeat colonoscopy in 5 years due to prep quality PATHOLOGY RESULTS: Diagnosis A. Duodenum, biopsy: Duodenal mucosa within normal limits. B. Stomach, random, biopsy: Antral-type and oxyntic mucosa with moderate chronic inactive inflammation; no Helicobacter organisms seen. C. Esophagus, lower, biopsy: - Rare small strip of gastric epithelium within normal limits; no intestinal metaplasia seen. - Squamous epithelium within normal limits TODAY'S VISIT Patient is here today for follow-up and to discuss upper endoscopy and colonoscopy results. Patient denies any ill effects from the prep, anesthesia or procedure itself. Patient however does reports to be more sensitive in the pelvic area. Patient does not know if it is from her previous abdominal surgeries. Patient had wound dehiscence after abdominal plasty with repair last year. Would like to see her surgeon again. Patient admits to not moving her bowels daily. Patient states that when she does move her bowels she does not feel like she is empty them completely. No polyps found, however due to poor prep patient was recommended to return for colonoscopy in 5 years, sooner if clinically necessary. Upper endoscopy did not show any H pylori or esophagitis. Mild chronic inactive gastritis. Patient was placed on Nexium twice a day for 8 weeks. Unable to get that through her insurance so she will purchase it in [employer]. 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 Mother Depression Anxiety Asthma Diabetes Hypertension Brother Bipolar 1 disorder Sister No problems noted. Sister No problems noted. Sister No problems noted. Son No problems noted. Son No problems noted. Daughter No problems noted. Maternal Grandmother Lymphoma Other FH: mental illness Substance use Social History Household Members: Children Housing: House Do you presently have visiting nurse or other home services: No Alcohol intake: never Patient Tobacco Use Status: Never used Tobacco e-Cigarette/Vaping Use: Never Used Second Hand Smoke Exposure: No Advance Directives Date on File: 08/16/22 service: No Current occupational status: employed Current occupational exposures/hazards: No Cognitive needs: No Hearing needs: No Vision needs: Yes Review of Systems Const Denies weight gain and Denies weight loss ENT Reports no additional complaints, Denies dysphagia and Denies odynophagia Card Reports no additional complaints Resp Reports no additional complaints GI Denies abdominal pain, Denies belching, Denies melena, Denies bloating, Denies change in bowel habits, Denies dysphagia, Denies excessive flatus, Denies dyspepsia, Denies heartburn, Denies diarrhea, Denies loose stools, Denies nausea, Denies odynophagia and Denies vomiting Musc Reports no additional complaints Neuro Reports no additional complaints Psych Reports no additional complaints Endo Reports no additional complaints Physical Exam Vital Signs: Last Vital Signs Pulse 85 12/10/23 09:13 BP 127/73 12/10/23 09:13 BMI result Body Mass Index 33.7 Const General: healthy appearing and no acute distress Nutritional Appearance: obese Orientation/consciousness: patient oriented x3 Resp Effort & Inspection: normal respiratory effort, able to speak in complete sentences, no tracheal deviation and symmetric chest movement Auscultation: clear to auscultation bilaterally Cardio Rate: regular rate GI Inspection: Yes normal to inspection, No distended and Yes obesity Palpation (GI): Soft to palpation, not firm, nontender and No hepatosplenomegaly present Auscultation: normal bowel sounds General: Yes no CVA tenderness Back/Spine/Pelvis Back: no CVA tenderness Skin General skin exam: elasticity normal, turgor normal and dry skin Neuro General: patient oriented x3 Psych Appearance: grossly normal Mental Status: mental status grossly normal Assessment & Plan Assessment & Plan (1) GERD (gastroesophageal reflux disease): Code(s): K21.9 - Gastro-esophageal reflux disease without esophagitis Category: Medical Qualifiers: Esophagitis presence: esophagitis presence not specified Qualified Code(s): K21.9 - Gastro-esophageal reflux disease without esophagitis (2) Constipation: Code(s): K59.00 - Constipation, unspecified Category: Medical Qualifiers: Constipation type: chronic idiopathic constipation Qualified Code(s): K59.04 - Chronic idiopathic constipation (3) Dehiscence of external surgical wound: Code(s): T81.31XA - Disruption of external operation (surgical) wound, not elsewhere classified, initial encounter Category: Medical Qualifiers: Encounter type: sequela Qualified Code(s): T81.31XS - Disruption of external operation (surgical) wound, not elsewhere classified, sequela (4) Lower abdominal pain: Code(s): R10.30 - Lower abdominal pain, unspecified Category: Medical Plan Continue Nexium twice a day. Avoid dietary triggers and late night snacking. Patient admits to be stress eating. Avoid dietary triggers in late night snacking. Eat smaller meals and more often. Patient will increase fluid intake and activity to promote better bowel motility. Patient will start taking Senokot daily. Patient will call her surgeon, will send her for CT scan to evaluate her lower abdominal pain. She will return in 2 months, sooner on as needed basis. Patient is agreeable to this plan and verbalizes understanding of instructions. She was given the opportunity to ask questions and all questions answered. Thank you for allowing me to participate in her care Orders: Orders CT abdomen pelvis w IV con Today R10.30 - Lower abdominal pain, unspecified, R10.9 - Unspecified abdominal pain, T81.31XA - Disruption of external operation (surgical) wound, not elsewhere classified, initial encounter Creatinine Today R10.11 - Right upper quadrant pain Blood Urea Nitrogen Today R10.11 - Right upper quadrant pain Medications: New sennosides (Natural Senna Laxative) 17.2 mg (2 x 8.6 mg) PO BEDTIME 60 tabs 3RF constipation K59.00 - Constipation, unspecified Coding Level of Care Code Est Pt Level 4 (31291) Diagnoses Gastroesophageal reflux disease, unspecified whether esophagitis present K21.9 Esophagitis presence: esophagitis presence not specified Chronic idiopathic constipation K59.04 Constipation type: chronic idiopathic constipation Disruption of external surgical wound, sequela T81.31XS Encounter type: sequela Lower abdominal pain R10.30 Time Spent (min) 35 Comment 20 minutes spent with patient and additional 15 minutes spent reviewing her records
== END 2023-12-10 09:39 | disposition home or self-care (01) ==
PROVIDERS: PCP Internal Medicine; Visit Provider Nurse Practitioner Family
DX: K21.9 Gastro-esophageal reflux disease without esophagitis (principal); K59.04 Chronic idiopathic constipation; T81.31XS Disruption of external operation (surgical) wound, not elsewhere classified, sequela; R10.30 Lower abdominal pain, unspecified
CPT/HCPCS: 99214

== ENCOUNTER → 2023-12-10 08:54 | Outpatient (BNVA) | payer OTHER, SELFPAY | PROVIDERS: PCP Internal Medicine; Visit Provider Nurse Practitioner Family | DX: K21.9 Gastro-esophageal reflux disease without esophagitis (principal); K59.04 Chronic idiopathic constipation; R10.30 Lower abdominal pain, unspecified; T81.31XS Disruption of external operation (surgical) wound, not elsewhere classified, sequela; Z79.899 Other long term (current) drug therapy; Z98.890 Other specified postprocedural states | CPT/HCPCS: 99212 ==

== ENCOUNTER 2024-01-22 08:18 | Outpatient (REF) | payer OTHER, SELFPAY ==
[2024-01-22 08:46] LABS: MANUAL DIFF FLAG NO
[2024-01-22 08:58] LABS: Basophils Absolute Auto 0.1 X10*3/uL (0.0-0.2); Eosinophils Absolute Auto 0.1 X10*3/uL (0.0-0.4); Eosinophils Percent Auto 1.4 % (0-4); Hematocrit 39.5 % (37.0-47.0); Imm Gran Abs Auto 0.01 X10*3/uL (0.00-0.03); Imm Gran Pct Auto 0.2 % (0.0-0.4); Lymphocytes Absolute Auto 1.7 X10*3/uL (1.2-4.9); Lymphocytes Percent Auto 32.9 % (20-40); Mean Corpuscular HGB Conc 32.9 g/dl (31.0-35.0); Mean Corpuscular Volume 82.1 fL (80.0-98.0); Mean Platelet Volume 10.7 fL (9.4-12.3); Monocytes Absolute Auto 0.4 X10*3/uL (0.1-1.2); Monocytes Percent Auto 8.2 % (2-11); Neutrophils Absolute Auto 2.8 x10*3/uL (2.0-8.3); Neutrophils Percent Auto 56.3 % (45-73); Platelet Count 246 X10*3/uL (160-400); Red Blood Count 4.81 X10*6/uL (4.20-5.50); Red Cell Distribution Width 13.2 % (11.0-16.0)
[2024-01-22 09:09] LABS: Estimated Average Glucose 108 mg/dL; Hemoglobin A1c % 5.4 % (<6.0)
[2024-01-22 09:44] LABS: Alanine Aminotransferase 17 U/L (0-31); Alkaline Phosphatase 68 U/L (39-117); Anion Gap 13 (12-20); Aspartate Amino Transferase 16 U/L (5-31); Bilirubin Total 0.5 mg/dL (0.0-1.0); Blood Urea Nitrogen 13 mg/dL (9-16); Calcium 9.3 mg/dL (8.4-10.2); Carbon Dioxide 25 mmol/L (22-29); Chloride 108 mmol/L (96-108); Cholesterol 219 mg/dL (<200); Estimated Glomerular Filt Rate > 60; Glucose Random 84 mg/dL (60-115); HDL Cholesterol 64 mg/dL (>40); LDL Cholesterol Calculated 139 mg/dL (<100); Potassium 3.7 mmol/L (3.3-5.1); Sodium 142 mmol/L (135-145); Triglycerides 80 mg/dL (<150)
[2024-01-22 10:00] LABS: Thyroid Stimulating Hormone 0.92 uIU/mL (0.32-4.0)
[2024-01-22 10:14] LABS: Creatinine Urine 274.12 mg/dL
[2024-01-22 10:15] LABS: Creatinine Urine 275.45 mg/dL; Microalbum/Creatinine Ratio Ur 6.1 ug/mg cr (<30)
== END 2024-01-22 08:19 | disposition home or self-care (01) ==
LOC: HO.LAB 08:18
PROVIDERS: Absent Provider Nurse Practitioner Family; PCP Internal Medicine; Visit Provider Internal Medicine
DX: E11.65 Type 2 diabetes mellitus with hyperglycemia (principal); E78.00 Pure hypercholesterolemia, unspecified; R10.11 Right upper quadrant pain
CPT/HCPCS: 36415; 80053; 80061; 82043; 82570; 83036; 84443; 85025

== ENCOUNTER 2024-02-02 06:59 | Outpatient (REF) | payer OTHER, SELFPAY ==
--- NOTE | ~2024-02-02 | CT_ITS ---
EXAMINATION: CT ABDOMEN AND PELVIS WITH CONTRAST CLINICAL INFORMATION: Unspecified abdominal pain. COMPARISON: CT abdomen and pelvis 08/16/2022. TECHNIQUE: Multidetector volumetric images were obtained from the superior aspect of the liver through the pubic symphysis following administration 85 mL of Omnipaque 350 intravenous contrast. Sagittal and coronal reformatted images were obtained on the technologist's workstation. Oral contrast: Yes This CT examination was performed using dose optimization techniques as appropriate, variously including the following: *Automated exposure control *Adjustment of mA and/or kV according to patient size (this includes techniques or standardized protocols for targeted exams where dose is matched to indication/reason for exam; i.e. extremities or head) *Use of iterative reconstruction technique DLP: 444 mGy-cm FINDINGS: LUNG BASES: The visualized lung bases are unremarkable. LIVER, GALLBLADDER, AND BILIARY TREE: Tiny hypodensity in the left lobe of the liver is is too small to characterize, but stable compared to prior and most likely a cyst or hemangioma. The gallbladder is unremarkable with no evidence of radiopaque gallstones, gallbladder wall thickening, or obvious pericholecystic inflammatory changes. PANCREAS: No discrete pancreatic mass or pancreatic ductal dilatation. SPLEEN: The spleen appears normal. ADRENAL GLANDS: No adrenal mass. KIDNEYS AND URETERS: The kidneys are normal in size, shape, and attenuation. No hydronephrosis, hydroureter, or calculi seen. No perinephric stranding. BLADDER: Unremarkable. GASTROINTESTINAL TRACT: Small hiatal hernia. Sleeve gastrectomy. The small and large bowel are normal in caliber. No discrete bowel mass. No acute inflammatory changes. ABDOMINAL WALL: No significant hernia is appreciated. LYMPH NODES: No pathologically enlarged lymph nodes. VASCULAR: No aortic aneurysm. Mild aortoiliac atherosclerosis. PELVIC VISCERA: Unremarkable. OSSEOUS STRUCTURES: No suspicious osseous lesions. CT/CT abdomen pelvis w IV con IMPRESSION: No explanation for abdominal pain.
[2024-02-02] MEDS: Barium Sulfate Oral (Vanilla) 450 ML ORAL.SUSP 900 ML PO (09:50)
[2024-02-02] MEDS: iohexoL 350 MG/ML 100 ML INFUS..BTL IV (09:53)
== END 2024-02-02 07:00 | disposition home or self-care (01) ==
LOC: HO.CT 06:59
PROVIDERS: PCP Internal Medicine; Visit Provider Nurse Practitioner Family
DX: R10.30 Lower abdominal pain, unspecified (principal); T81.31XA Disruption of external operation (surgical) wound, not elsewhere classified, initial encounter
CPT/HCPCS: 74177; Q9967

== ENCOUNTER 2024-02-04 09:15 | Outpatient (AMB) | payer OTHER, SELFPAY ==
--- NOTE | 2024-02-04 09:25 | MHC.OFFVIS ---
Vital Signs 02/04/24 09:29 Height 4 ft 11 in Weight 166 lb 10.711 oz BMI 33.7 BP 130/68 Blood Pressure Location Rt brachial Position Sitting Pulse 78 Pulse Source Pulse Oximeter Pulse Oximetry (%) 97 Oxygen Delivery Method Room Air Intake Visit Reasons: 2 month follow up Intake Note: Rosa presents in office today for a scheduled 2 mos FUV. CC: Pt reports that she had her CT scan completed and is anxiously awaiting the interpretation of said scan. Pt reports also having her lab work completed. Allergies lisinopril [LISINOPRIL] Allergy (Intermediate, Verified 02/04/24 09:28) SWELLING/BLURRY VISION house dust Allergy (Mild, Verified 02/04/24 09:28) Hives HPI HPI 2 month follow up: Details: LAST VISIT GERD (gastroesophageal reflux disease) Constipation Dehiscence of external surgical wound Lower abdominal pain Plan Continue Nexium twice a day. Avoid dietary triggers and late night snacking. Patient admits to be stress eating. Avoid dietary triggers in late night snacking. Eat smaller meals and more often. Patient will increase fluid intake and activity to promote better bowel motility. Patient will start taking Senokot daily. Patient will call her surgeon, will send her for CT scan to evaluate her lower abdominal pain. She will return in 2 months, sooner on as needed basis. Patient is agreeable to this plan and verbalizes understanding of instructions. She was given the opportunity to ask questions and all questions answered. ? Thank you for allowing me to participate in her care Orders Orders CT abdomen pelvis w IV con Today R10.30, R10.9, T81.31XA Creatinine Today R10.11 Blood Urea Nitrogen Today R10.11 Medications New sennosides (Natural Senna Laxative) 17.2 mg (2 x 8.6 mg) PO BEDTIME 60 tabs 3RF constipation K59.00 TODAY'S VISIT Patient is here today for follow-up and to discuss CT scan results. Patient had CT scan done 2 days ago, report is not available yet. Patient reports that she is moving her bowels, however she feels like senna is not really helping her. Patient states that when she took Dulcolax in the past it was helpful. Patient reports that she is drinking plenty fluids. No tenderness to lower abdomen. Patient denies any fever or chills. Patient denies any acid reflux, dyspepsia, dysphagia or odynophagia. Patient just became a grandmother and will be traveling done to [place] to see her grandson. 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 Mother Depression Anxiety Asthma Diabetes Hypertension Brother Bipolar 1 disorder Sister No problems noted. Sister No problems noted. Sister No problems noted. Son No problems noted. Son No problems noted. Daughter No problems noted. Maternal Grandmother Lymphoma Other FH: mental illness Substance use Social History Household Members: Children Housing: House Do you presently have visiting nurse or other home services: No Alcohol intake: never Patient Tobacco Use Status: Never used Tobacco e-Cigarette/Vaping Use: Never Used Second Hand Smoke Exposure: No Advance Directives Date on File: 08/16/22 service: No Current occupational status: employed Current occupational exposures/hazards: No Cognitive needs: No Hearing needs: No Vision needs: Yes Review of Systems Const Denies weight gain and Denies weight loss ENT Reports no additional complaints, Denies dysphagia and Denies odynophagia Card Reports no additional complaints Resp Reports no additional complaints GI Denies abdominal pain, Denies belching, Denies melena, Denies bloating, Denies change in bowel habits, Denies dysphagia, Denies excessive flatus, Denies dyspepsia, Denies heartburn, Denies diarrhea, Denies loose stools, Denies nausea, Denies odynophagia and Denies vomiting Reports no additional complaints Musc Reports no additional complaints Neuro Reports no additional complaints Psych Reports no additional complaints Endo Reports no additional complaints Physical Exam Vital Signs: Last Vital Signs Pulse 78 02/04/24 09:29 BP 130/68 02/04/24 09:29 Pulse Ox 97 02/04/24 09:29 Oxygen Delivery Method Room Air 02/04/24 09:29 BMI result Body Mass Index 33.7 Assessment & Plan Assessment & Plan (1) GERD (gastroesophageal reflux disease): Code(s): K21.9 - Gastro-esophageal reflux disease without esophagitis Category: Medical Qualifiers: Esophagitis presence: esophagitis presence not specified Qualified Code(s): K21.9 - Gastro-esophageal reflux disease without esophagitis (2) Constipation: Code(s): K59.00 - Constipation, unspecified Category: Medical Qualifiers: Constipation type: chronic idiopathic constipation Qualified Code(s): K59.04 - Chronic idiopathic constipation (3) Dehiscence of external surgical wound: Code(s): T81.31XA - Disruption of external operation (surgical) wound, not elsewhere classified, initial encounter Category: Medical Qualifiers: Encounter type: sequela Qualified Code(s): T81.31XS - Disruption of external operation (surgical) wound, not elsewhere classified, sequela (4) Lower abdominal pain: Code(s): R10.30 - Lower abdominal pain, unspecified Category: Medical Plan Continue avoiding dietary triggers. Increase fluid intake and activity to promote better bowel motility. Patient can take Dulcolax. Will call patient with CT scan results when available. Patient will follow-up in the office in 6 months. Patient will call if she will have any GI concerning symptoms. She is agreeable to this plan and verbalizes understanding of instructions. She was given the opportunity to ask questions and all questions answered. Thank you for allowing me to participate in her care Medications: New bisacodyl 10 mg (2 x 5 mg) PO DAILY 60 tabs 2RF Discontinued lactulose Discontinued Reason: Doctor's Order 20 grams (30 mL) PO BID 2,880 mL 0RF K59.00 - Constipation, unspecified sennosides (Natural Senna Laxative) Discontinued Reason: Doctor's Order 17.2 mg (2 x 8.6 mg) PO BEDTIME 60 tabs 3RF constipation K59.00 - Constipation, unspecified Coding Level of Care Code Est Pt Level 3 (17013) Diagnoses Gastroesophageal reflux disease, unspecified whether esophagitis present K21.9 Esophagitis presence: esophagitis presence not specified Chronic idiopathic constipation K59.04 Constipation type: chronic idiopathic constipation Disruption of external surgical wound, sequela T81.31XS Encounter type: sequela Lower abdominal pain R10.30 Time Spent (min) 30 Comment 20 minutes spent with patient and additional 10 minutes spent reviewing her records
[2024-02-04 09:29] VITALS: BP 130/68; PULSE 78; O2SAT 97; BMI 33.7
== END 2024-02-04 10:00 | disposition home or self-care (01) ==
PROVIDERS: PCP Internal Medicine; Visit Provider Nurse Practitioner Family
DX: K21.9 Gastro-esophageal reflux disease without esophagitis (principal); K59.04 Chronic idiopathic constipation; T81.31XS Disruption of external operation (surgical) wound, not elsewhere classified, sequela; R10.30 Lower abdominal pain, unspecified
CPT/HCPCS: 99213

== ENCOUNTER → 2024-02-04 09:15 | Outpatient (BNVA) | payer OTHER, SELFPAY | PROVIDERS: PCP Internal Medicine; Visit Provider Nurse Practitioner Family | DX: K21.9 Gastro-esophageal reflux disease without esophagitis (principal); K59.04 Chronic idiopathic constipation; R10.30 Lower abdominal pain, unspecified; T81.31XS Disruption of external operation (surgical) wound, not elsewhere classified, sequela | CPT/HCPCS: 99212 ==

== ENCOUNTER 2024-04-07 14:30 | Outpatient (AMB) | payer OTHER, SELFPAY ==
--- NOTE | 2024-04-07 14:51 | A.OFFPC_ITS ---
Vital Signs 04/07/24 14:52 Height 4 ft 11 in Weight 171 lb BMI 34.5 BP 118/78 Blood Pressure Location Lt brachial Position Sitting Pulse 76 Pulse Source Pulse Oximeter Pulse Oximetry (%) 98 Oxygen Delivery Method Room Air Intake Visit Reasons: 3M Med Follow Up Human Resources Team Member Required: No Accompanied by: Self / Same As Patient Allergies lisinopril [LISINOPRIL] Allergy (Intermediate, Verified 04/07/24 14:52) SWELLING/BLURRY VISION house dust Allergy (Mild, Verified 04/07/24 14:52) Hives Medication List - Last Reconciled 04/07/24 by Nicole Velazco MD bisacodyl 10 mg (2 x 5 mg) PO DAILY kzlzqhdxwj-hgmuopwydnmqi-bszr 50-300-40 mg 1 cap PO Q8H PRN calc-D3-mag cit,ox-K2-herb 353 300 mg-25 mcg- 66 mg-37.5 mcg (Alive Calcium- Vitamin D3-K2) tabs PO [chelated magnesium PO] cyanocobalamin (vitamin B-12) 1,000 mcg PO DAILY esomeprazole magnesium (Nexium) 20 mg PO BID 8 weeks fluoxetine 20 mg PO BID gauze bandage (Kerlix) As directed lorazepam 0.5 mg PO DAILY PRN losartan 25 mg PO DAILY magnesium 200 mg PO DAILY 90 days psyllium husk (Fiber (psyllium husk)) 0.4 grams PO BEDTIME PRN sennosides-docusate sodium 8.6-50 mg (Senna Plus) 2 tab-caps (2 x 8.6-50 mg) PO BEDTIME Shower Chair As directed tirzepatide (weight loss) (Zepbound) 5 mg (0.5 mL) subcut QWEEK tramadol 50 mg PO DAILY PRN trazodone 100 mg PO BEDTIME PRN Tobacco use date assessed: 04/07/24 Dental Screening Dental Screen Date: 04/07/24 Did you have a dental visit in the last 12 months?: No Did you have a dental problem in the last 6 months where you did not have access to dental care?: No Was dental information given to patient?: No HPI 3M Med Follow Up HPI Details 54-year-old obese female with status pos t laparoscopic sleeve gastrectomy diabetes mellitus hypercholesterolemia hypertension generalized anxiety disorder last seen in July 2023. Review of the notes was seen by Gastroenterology in January had a CT scan done which was unremarkable. Patient had an EGD done in November with the esophagus negative stomach no H pylori moderate chronic inactive inflammation [facility] Medical History (Updated 04/07/24 @ 15:23 by Nicole Velazco MD) Breast cancer screening by mammogram Seizure GERD (gastroesophageal reflux disease) Cervical cancer screening Breast cancer screening Constipation Essential hypertension PVC (premature ventricular contraction) Non insulin dependent diabetes mellitus with ophthalmic complication Hyperlipidemia Intestinal malabsorption BMI 34.0-34.9,adult Surgical History Hx of colonoscopy History of esophagogastroduodenoscopy (EGD) History of sleeve gastrectomy Hx of abdominal surgery History of abdominoplasty (07/21/22) History of mandibular surgery History of brain surgery Hx of hysterectomy Hx of chest tube placement Family History Father No problems noted. Mother Depression Anxiety Asthma Diabetes Hypertension Brother Bipolar 1 disorder Sister No problems noted. Sister No problems noted. Sister No problems noted. Son No problems noted. Son No problems noted. Daughter No problems noted. Maternal Grandmother Lymphoma Other FH: mental illness Substance use Social History Household Members: Children Housing: House Do you presently have visiting nurse or other home services: No Alcohol intake: never Patient Tobacco Use Status: Never used Tobacco e-Cigarette/Vaping Use: Never Used Second Hand Smoke Exposure: No Advance Directives Date on File: 08/16/22 service: No Current occupational status: employed Current occupational exposures/hazards: No Cognitive needs: No Hearing needs: No Vision needs: Yes Questionnaire PHQ-9 Over the last 2 weeks, how often have you been bothered by any of the following problems? 1. Little interest or pleasure in doing things: several days 2. Feeling down, depressed, or hopeless: several days 3. Trouble falling or staying asleep, or sleeping too much: several days 4. Feeling tired or having little energy: several days 5. Poor appetite or overeating: not at all 6. Feeling bad about yourself - or that you are a failure or have let yourself or your family down: not at all 7. Trouble concentrating on things, such as reading the newspaper or watching television: not at all 8. Moving or speaking so slowly that other people could have noticed. Or the opposite - being so fidgety or restless that you have been moving around a lot more than usual: not at all 9. Thoughts that you would be better off or of hurting yourself in some way: not at all Total score: 4 Source: Developed by Drs. Eleuterio Mata, Sonia Grimes, Constantin Giron and colleagues, with an educational radha from [employer]. Thrive Questionnaire Date Thrive assessed: 04/07/24 I am a: Patient What is your living situation today?: I have a steady place to live Within the past 12 months, did the food you bought not last and you didn't have the money to get more?: Never true Within the past 12 months, did you worry whether your food would run out before you got money to buy more?: Never true Do you have trouble paying for medicines?: No Do you have trouble getting transportation to medical appointments?: No Do you have trouble paying your heating and electricity bill?: No Do you have trouble taking care of your child, family member or friend?: No Do you have trouble with day-to-day activities such as bathing, preparing meals, shopping, managing finances, etc.?: No Are you currently unemployed and looking for a job?: No Are you interested in more education?: No Please select the resources that you would like help with: None Currently or been in a relationship where the following occur: No concerns reported THRIVE Score: 0 AUDIT C Alcohol Use Questionnaire (AUDIT-C) 1. How often do you have a drink containing alcohol?: Never 3. How often do you have six or more drinks on one occasion?: Never Total Score: 0 ALAYNA-7 AMB Questionnaire ALAYNA-7 Date ALAYNA - 7 assessed: 04/07/24 Feeling nervous, anxious, or on edge: 0 = Not at all Not being able to stop or control worryin = Not at all Worrying too much about different things: 0 = Not at all Trouble relaxin = Not at all Being so restless that it is hard to sit still: 0 = Not at all Becoming easily annoyed or irritable: 0 = Not at all Feeling afraid as if something awful might happen: 0 = Not at all Total ALAYNA-7 score (0-4 normal; 5-9 mild; 10-14 moderate; 15-21 severe): 0 Source: Developed by Drs. Eleuterio Mata, Sonia Grimes, Constantin Giron and colleagues, with an educational radha from [employer]. Physical exam (Primary Care) Vital Signs: Last Vital Signs Pulse 76 04/07/24 14:52 BP 118/78 04/07/24 14:52 Pulse Ox 98 04/07/24 14:52 Oxygen Delivery Method Room Air 04/07/24 14:52 BMI result Body Mass Index 34.5 Tobacco/Smoking Status: Tobacco use Status Tobacco use date assessed 04/07/24 04/07/24 14:54 Patient Tobacco Use Status Never used Tobacco 04/07/24 14:54 e-Cigarette/Vaping Use Never Used 04/07/24 14:54 PHQ-9: PHQ-9 Score PHQ-9: Total score 4 04/07/24 15:04 Thrive Assessment: Date of Thrive Assessment Date Thrive assessed 04/07/24 04/07/24 14:54 Currently or been in a relationship where the following occur: No concerns reported Const General: alert; No acute distress Eyes Conjunctivae: conjunctivae normal Resp Auscultation: clear to auscultation bilaterally Cardio Rate: regular rate Rhythm: regular rhythm GI Inspection: Yes normal to inspection Extrem General: Yes normal to inspection and No edema Assessment and Plan Assessment & Plan (1) Obesity (BMI 30.0-34.9): Code(s): E66.9 - Obesity, unspecified Plan: Diet and exercise (2) Status post laparoscopic sleeve gastrectomy: Comment: April 2020 Code(s): Z98.84 - Bariatric surgery status Plan: Continue to follow-up with bariatric surgeon (3) Type 2 diabetes mellitus with hyperglycemia: Comment: [address] [place] [address]. 01/2023 Code(s): E11.65 - Type 2 diabetes mellitus with hyperglycemia Qualifiers: Diabetes mellitus banking paralegal insulin use: without banking paralegal use Qualified Code(s): E11.65 - Type 2 diabetes mellitus with hyperglycemia Plan: Decrease the amount of carbohydrate intake, pasta, bread, rice and potatoes are all sugar and that is aside from all the sweet stuff, remember that fruits are good but they are Sweet also. Hemoglobin A1c goal of less than 6.5. Patient on Trulicity (4) Hyperlipidemia: Comment: currently on no meds Code(s): E78.5 - Hyperlipidemia, unspecified Qualifiers: Hyperlipidemia type: pure hypercholesterolemia Qualified Code(s): E78.00 - Pure hypercholesterolemia, unspecified Plan: Avoid fried foods, chicken skin, eggs, butter margarine, pastries and meat. Be it pork or beef they have a lot of cholesterol LDL goal of less than 100 and triglyceride of less than 150 (5) Essential hypertension: Code(s): I10 - Essential (primary) hypertension Plan: Continue with blood pressure medication. Decrease salt intake and exercise on losartan 25 mg once a day (6) GERD (gastroesophageal reflux disease): Code(s): K21.9 - Gastro-esophageal reflux disease without esophagitis Qualifiers: Esophagitis presence: esophagitis presence not specified Qualified Code(s): K21.9 - Gastro-esophageal reflux disease without esophagitis Plan: Avoid the foods that causes that usually spicy foods, tomato products, juices, coffee, soda and foods that your sensitive to. After eating do not lie down, allow 3-4 hours before in lie down. And keep the head of bed above 30 degrees to avoid the acid from going up. (7) Generalized anxiety disorder: Comment: Declined referral for counseling presently. Code(s): F41.1 - Generalized anxiety disorder Plan: Continue with present medication lorazepam as needed (8) Constipation: Code(s): K59.00 - Constipation, unspecified Qualifiers: Constipation type: chronic idiopathic constipation Qualified Code(s): K59.04 - Chronic idiopathic constipation Plan: fiber in diet, keep well hydrated. and keep active Medications: New sennosides-docusate sodium 8.6-50 mg (Senna Plus) 2 tab-caps (2 x 8.6-50 mg) PO BEDTIME 60 caps 2RF K59.04 - Chronic idiopathic constipation tirzepatide (weight loss) (Zepbound) 5 mg (0.5 mL) subcut QWEEK 2 mL 3RF E66.9 - Obesity, unspecified Discontinued dulaglutide Discontinued Reason: Doctor's Order 3 mg (0.5 mL) subcut QWEEK 30 days 2.5 mL 4RF E11.65 - Type 2 diabetes mellitus with hyperglycemia, K59.00 - Constipation, unspecified, Z12.11 - Encounter for screening for malignant neoplasm of colon Coding Level of Care Code Est Pt Level 4 (10678) Diagnoses Obesity (BMI 30.0-34.9) E66.9 Status post laparoscopic sleeve gastrectomy Z98.84 Type 2 diabetes mellitus with hyperglycemia, without long-term current use of insulin E11.65 Diabetes mellitus banking paralegal insulin use: without banking paralegal use Pure hypercholesterolemia E78.00 Hyperlipidemia type: pure hypercholesterolemia Essential hypertension I10 Gastroesophageal reflux disease, unspecified whether esophagitis present K21.9 Esophagitis presence: esophagitis presence not specified Generalized anxiety disorder F41.1 Chronic idiopathic constipation K59.04 Constipation type: chronic idiopathic constipation
[2024-04-07 14:52] VITALS: BP 118/78; PULSE 76; O2SAT 98; BMI 34.5
== END 2024-04-07 15:45 | disposition home or self-care (01) ==
PROVIDERS: PCP Internal Medicine; Visit Provider Internal Medicine
DX: E11.65 Type 2 diabetes mellitus with hyperglycemia (principal); E66.9 Obesity, unspecified; Z98.84 Bariatric surgery status; Z68.34 Body mass index [BMI] 34.0-34.9, adult; E78.00 Pure hypercholesterolemia, unspecified; I10 Essential (primary) hypertension; K21.9 Gastro-esophageal reflux disease without esophagitis; F41.1 Generalized anxiety disorder; K59.04 Chronic idiopathic constipation
CPT/HCPCS: 99214

== ENCOUNTER 2024-04-10 14:07 | Outpatient (AMB) | payer OTHER, SELFPAY ==
--- NOTE | 2024-04-10 14:09 | A.OFFVIS_ITS ---
Vital Signs 04/10/24 14:10 Height 4 ft 11 in Weight 171 lb 1.259 oz BMI 34.5 BP 140/92 H Blood Pressure Location Lt brachial Position Sitting Pulse 56 Intake Visit Reasons: 1yr f/up Electronic Induction Hardener Required: No Accompanied by: Self / Same As Patient Allergies lisinopril [LISINOPRIL] Allergy (Intermediate, Verified 04/07/24 14:52) SWELLING/BLURRY VISION house dust Allergy (Mild, Verified 04/07/24 14:52) Hives Medication List - Last Reconciled 04/10/24 by Titus Lomax MD bisacodyl 10 mg (2 x 5 mg) PO DAILY zumoynifrc-bztumdtoizjnz-kjow 50-300-40 mg 1 cap PO Q8H PRN calc-D3-mag cit,ox-K2-herb 353 300 mg-25 mcg- 66 mg-37.5 mcg (Alive Calcium- Vitamin D3-K2) tabs PO [chelated magnesium PO] cyanocobalamin (vitamin B-12) 1,000 mcg PO DAILY esomeprazole magnesium (Nexium) 20 mg PO BID 8 weeks fluoxetine 20 mg PO BID gauze bandage (Kerlix) As directed lorazepam 0.5 mg PO DAILY PRN losartan 25 mg PO DAILY magnesium 200 mg PO DAILY 90 days psyllium husk (Fiber (psyllium husk)) 0.4 grams PO BEDTIME PRN sennosides-docusate sodium 8.6-50 mg (Senna Plus) 2 tab-caps (2 x 8.6-50 mg) PO BEDTIME Shower Chair As directed tirzepatide (weight loss) (Zepbound) 5 mg (0.5 mL) subcut QWEEK tramadol 50 mg PO DAILY PRN trazodone 100 mg PO BEDTIME PRN HPI Comments Details: Rosa returns for follow-up regarding premature ventricular contractions. In the past, she was seen because of Holter showing premature ventricular contractions. However, no major cardiac issues otherwise like cardiomyopathy. She underwent bariatric surgery and lost about 75 lb or so according to her. However, she has gained some weight back. Since last seen, absolutely no cardiac symptoms. No angina or shortness of breath or palpitations or in fact anything along those lines. She states she is doing very well. [facility] Medical History (Updated 04/07/24 @ 15:23 by Nicole Velazco MD) Breast cancer screening by mammogram Seizure GERD (gastroesophageal reflux disease) Cervical cancer screening Breast cancer screening Constipation Essential hypertension PVC (premature ventricular contraction) Non insulin dependent diabetes mellitus with ophthalmic complication Hyperlipidemia Intestinal malabsorption BMI 34.0-34.9,adult Surgical History Hx of colonoscopy History of esophagogastroduodenoscopy (EGD) History of sleeve gastrectomy Hx of abdominal surgery History of abdominoplasty (07/21/22) History of mandibular surgery History of brain surgery Hx of hysterectomy Hx of chest tube placement Family History Father No problems noted. Mother Depression Anxiety Asthma Diabetes Hypertension Brother Bipolar 1 disorder Sister No problems noted. Sister No problems noted. Sister No problems noted. Son No problems noted. Son No problems noted. Daughter No problems noted. Maternal Grandmother Lymphoma Other FH: mental illness Substance use Social History (Updated 04/10/24 @ 14:14 by Gladis Urena [facility]) Household Members: Children Housing: House Do you presently have visiting nurse or other home services: No Alcohol intake: current Alcohol intake frequency: holidays/special occasions only Comment: social Patient Tobacco Use Status: Never used Tobacco e-Cigarette/Vaping Use: Never Used Second Hand Smoke Exposure: No Advance Directives Date on File: 08/16/22 service: No Current occupational status: employed Current occupational exposures/hazards: No Cognitive needs: No Hearing needs: No Vision needs: Yes Review of Systems Const Denies chills, Denies fatigue, Denies fever(s), Denies weight gain and Denies weight loss ENT Denies dizziness Card Denies chest pain, Denies leg edema, Denies lightheadedness, Denies palpitations, Denies dyspnea on exertion, Denies orthopnea and Denies other Resp Denies cough and Denies dyspnea on exertion GI Denies hematochezia and Denies change in stool character Musc Denies abnormal gait, Denies muscle weakness, Denies numbness, Denies radiating pain into limb and Denies tingling Neuro Denies abnormal gait, Denies dizziness, Denies numbness and Denies tingling Endo Denies fatigue and Denies palpitations Physical Exam Vital Signs: Last Vital Signs Pulse 56 04/10/24 14:10 BP 140/92 H 04/10/24 14:10 BMI result Body Mass Index 34.5 Const General: comfortable and no acute distress Orientation/consciousness: patient oriented x3 HEENT Other: Unremarkable Head: Yes normal to inspection Neck Neck: Yes normal visual inspection Chest Chest palpation & inspection: normal inspection of the chest Resp Auscultation: clear to auscultation bilaterally Cardio Palpation: normal PMI Heart sounds: S1 normal heart sound present, S2 normal heart sound present, no gallops, no murmurs and no rubs GI Palpation (GI): Soft to palpation Back/Spine/Pelvis Other: unremarkable Skin General skin exam: no rashes or lesions noted Neuro General: patient oriented x3 Extrem General: Yes normal to inspection Psych Mental Status: mental status grossly normal Office Procedures EKG Details: EKG with underlying sinus rhythm at 56/Min; can not exclude old inferior infarct but could be related to body habitus; nonspecific ST-[place] changes; [place] [id number], Complete Assessment & Plan Assessment & Plan (1) PVC (premature ventricular contraction): Code(s): I49.3 - Ventricular premature depolarization Category: Medical (2) Status post laparoscopic sleeve gastrectomy: Comment: April 2020 Code(s): Z98.84 - Bariatric surgery status Category: Surgical Plan Resting EKG changes are nonspecific. In the last Holter, no significant PVCs. She has no symptoms either. Off beta- blockers. No specific management otherwise. Echocardiogram - 2021 - LVEF of 56%. No wall motion abnormalities or other significant findings. Stress [id number] stress test; Aly protocol; 5 minutes 55 seconds; 7 METS; no angina or ischemia; no arrhythmias; normal perfusion. Holter -2021 shows normal sinus rhythm and rare PVCs. Minimal burden. Coding Level of Care Code Est Pt Level 3 (03163) Diagnoses PVC (premature ventricular contraction) I49.3 Status post laparoscopic sleeve gastrectomy Z98.84 CPT Codes EKG - CPT: 60188-[id number], Complete ([id number])
[2024-04-10 14:10] VITALS: BP 140/92; PULSE 56; BMI 34.5
== END 2024-04-10 14:37 | disposition home or self-care (01) ==
PROVIDERS: PCP Internal Medicine; Visit Provider Internal Medicine
DX: I49.3 Ventricular premature depolarization (principal); Z98.84 Bariatric surgery status
CPT/HCPCS: 93010; 99213

== ENCOUNTER → 2024-04-10 14:07 | Outpatient (BNVA) | payer OTHER, SELFPAY | PROVIDERS: PCP Internal Medicine; Visit Provider Internal Medicine | DX: I49.3 Ventricular premature depolarization (principal); R94.31 Abnormal electrocardiogram [ECG] [EKG]; Z98.84 Bariatric surgery status | CPT/HCPCS: 93005; 99212 ==

== ENCOUNTER 2024-08-02 09:39 | Outpatient (AMB) | payer OTHER, SELFPAY ==
--- NOTE | 2024-08-02 09:40 | MHC.PC.OV ---
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 Required: No Accompanied by: Self / Same As Patient Allergies lisinopril [LISINOPRIL] Allergy (Intermediate, Verified 08/02/24 09:43) SWELLING/BLURRY VISION house dust Allergy (Mild, Verified 08/02/24 09:43) Hives Tobacco use date assessed: 04/07/24 Dental Screening Dental Screen Date: 08/02/24 Did you have a dental visit in the last 12 months?: Yes Did you have a dental problem in the last 6 months where you did not have access to dental care?: No Was dental information given to patient?: Patient has dentist HPI Resched from 07/07: 3M Follow up HPI Details The patient is a 54-year-old female presenting with a focus on her overall wellness and management of chronic medical conditions. The patient has a history of essential hypertension for which she is taking Losartan 25 mg daily. Her blood pressure is currently well controlled. She has a history of migraines for which she takes Magnesium for prevention, and occasionally uses Tramadol and Furoset as needed. Recently, the patient experienced a severe dental infection following a procedure on June 20, which progressed to a bone infection. She was treated with Clindamycin and Amoxicillin, but the infection persists with remaining tenderness and a lump. The patient also reports feelings of anxiety and uses Lorazepam and Fluoxetine as needed. She experiences occasional insomnia and uses Trazodone to aid in sleeping. Her cholesterol levels were above desired levels in previous tests, leading to dietary changes aimed at reducing high cholesterol. This year, her last mammogram was conducted in August, and she is up-to-date with her colonoscopy and vaccinations, including influenza, COVID-19, and pneumonia. The patient is planning a trip to [place] for a convention, and inquiry into necessary vaccinations was made. 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 Mother Depression Anxiety Asthma Diabetes Hypertension Brother Bipolar 1 disorder Sister No problems noted. Sister No problems noted. Sister No problems noted. Son No problems noted. Son No problems noted. Daughter No problems noted. Maternal Grandmother Lymphoma Other FH: mental illness Substance use Social History Household Members: Children Housing: House Do you presently have visiting nurse or other home services: No Alcohol intake: current Alcohol intake frequency: holidays/special occasions only Comment: social Patient Tobacco Use Status: Never used Tobacco e-Cigarette/Vaping Use: Never Used Second Hand Smoke Exposure: No Advance Directives Date on File: 08/16/22 service: No Current occupational status: employed Current occupational exposures/hazards: No Cognitive needs: No Hearing needs: No Vision needs: Yes Questionnaire Thrive Questionnaire Date Thrive assessed: 04/07/24 AUDIT C Alcohol Use Questionnaire (AUDIT-C) 2. How many drinks containing alcohol do you have on a typical day when you are drinking?: 1 or 2 Total Score: 0 ALAYNA-7 AMB Questionnaire ALAYNA-7 Date ALAYNA - 7 assessed: 04/07/24 Source: Developed by Drs. Eleuterio Mata, Sonia Grimes, Constantin Giron and colleagues, with an educational radha from [employer]. Physical exam (Primary Care) Vital Signs: Last Vital Signs Pulse 83 08/02/24 09:42 BP 118/86 08/02/24 09:42 Pulse Ox 97 08/02/24 09:42 Oxygen Delivery Method Room Air 08/02/24 09:42 BMI result Body Mass Index 32.7 Tobacco/Smoking Status: Tobacco use Status Tobacco use date assessed 04/07/24 08/02/24 09:50 Patient Tobacco Use Status Never used Tobacco 08/02/24 09:50 e-Cigarette/Vaping Use Never Used 08/02/24 09:50 Thrive Assessment: Date of Thrive Assessment Date Thrive assessed 04/07/24 08/02/24 09:50 Const General: alert; No acute distress Eyes Conjunctivae: conjunctivae normal Resp Auscultation: clear to auscultation bilaterally Cardio Rate: regular rate Rhythm: regular rhythm GI Inspection: Yes normal to inspection Extrem General: Yes normal to inspection and No edema Coding Level of Care Code Est Pt Level 4 (57480) Complex EM visit Add On G2211 Diagnoses Status post laparoscopic sleeve gastrectomy Z98.84 Type 2 diabetes mellitus with hyperglycemia, without long-term current use of insulin E11.65 Diabetes mellitus half-way insulin use: without half-way use Essential hypertension I10 Gastroesophageal reflux disease, unspecified whether esophagitis present K21.9 Esophagitis presence: esophagitis presence not specified Pure hypercholesterolemia E78.00 Hyperlipidemia type: pure hypercholesterolemia Generalized anxiety disorder F41.1 Assessment & Plan Assessment & Plan (1) Status post laparoscopic sleeve gastrectomy: Comment: April 2020 Code(s): Z98.84 - Bariatric surgery status Category: Surgical Plan: Continue to follow-up with bariatric, continue with being active. (2) Type 2 diabetes mellitus with hyperglycemia: Comment: [address] [place] [address]. 01/2023 Code(s): E11.65 - Type 2 diabetes mellitus with hyperglycemia Category: Medical Qualifiers: Diabetes mellitus half-way insulin use: without half-way use Qualified Code(s): E11.65 - Type 2 diabetes mellitus with hyperglycemia Plan: Decrease the amount of carbohydrate intake, pasta, bread, rice and potatoes are all sugar and that is aside from all the sweet stuff, remember that fruits are good but they are Sweet also. Patient's diabetes has been under control post sleeve gastrectomy presently on [place] bone (3) Essential hypertension: Code(s): I10 - Essential (primary) hypertension Category: Medical Plan: Continue with blood pressure medication. Decrease salt intake and exercise on losartan 25 mg once a day (4) GERD (gastroesophageal reflux disease): Code(s): K21.9 - Gastro-esophageal reflux disease without esophagitis Category: Medical Qualifiers: Esophagitis presence: esophagitis presence not specified Qualified Code(s): K21.9 - Gastro-esophageal reflux disease without esophagitis Plan: Avoid the foods that causes that usually spicy foods, tomato products, juices, coffee, soda and foods that your sensitive to. After eating do not lie down, allow 3-4 hours before in lie down. And keep the head of bed above 30 degrees to avoid the acid from going up. (5) Hyperlipidemia: Comment: currently on no meds Code(s): E78.5 - Hyperlipidemia, unspecified Category: Medical Qualifiers: Hyperlipidemia type: pure hypercholesterolemia Qualified Code(s): E78.00 - Pure hypercholesterolemia, unspecified Plan: Avoid fried foods, chicken skin, eggs, butter margarine, pastries and meat. Be it pork or beef they have a lot of cholesterol presently on no medication LDL goal of less than 100 and triglyceride of less than 150. (6) Generalized anxiety disorder: Comment: Declined referral for counseling presently. Code(s): F41.1 - Generalized anxiety disorder Category: Medical Plan: Continue with present therapy of fluoxetine 20 mg twice a day Plan - Continue current antihypertensive regimen with Losartan 25 mg daily to maintain blood pressure control. - For migraines, continue Magnesium supplementation and use Tramadol and Furoset as needed. Reassess if the headache frequency increases. - Maintain current anxiety management with Lorazepam as needed and Fluoxetine with regard to its long half-life. - Continue Trazodone for insomnia. Recommend maintaining good sleep hygiene practices. - Monitor cholesterol levels with dietary modifications focusing on reducing fried foods, fast foods, and foods high in saturated fats. Reassess lipid profile in three months. - The dental infection still presents with tenderness; monitor for any escalation in symptoms. Consider referral to a dental specialist if the condition persists. - Verify vaccination requirements for international travel to [place] depending on the patient?s itinerary and areas to be visited. - Schedule next wellness check-up before November and ensure all pending physical examinations are completed. - Continue regular preventative health screenings as per previous schedule for mammograms and colonoscopies. - Ensure continuous hydration and maintain a balanced diet, with attention to fiber intake. Orders: Orders Lipid Panel 2 Months E78.00 - Pure hypercholesterolemia, unspecified Complete Blood Count Auto Diff 2 Months E78.00 - Pure hypercholesterolemia, unspecified Comprehensive Met. Panel 2 Months E78.00 - Pure hypercholesterolemia, unspecified Free T4 (Free Thyroxine) 2 Months E78.00 - Pure hypercholesterolemia, unspecified Thyroid Stimulating Hormone 2 Months E78.00 - Pure hypercholesterolemia, unspecified Phosphorus 2 Months E78.00 - Pure hypercholesterolemia, unspecified Vitamin B12 and Folate 2 Months E78.00 - Pure hypercholesterolemia, unspecified Vitamin D 25-OH Total 2 Months E78.00 - Pure hypercholesterolemia, unspecified Hemoglobin A1c 2 Months E78.00 - Pure hypercholesterolemia, unspecified Magnesium 2 Months E78.00 - Pure hypercholesterolemia, unspecified
[2024-08-02 09:42] VITALS: BP 118/86; PULSE 83; O2SAT 97; BMI 32.7
== END 2024-08-02 10:17 | disposition home or self-care (01) ==
PROVIDERS: PCP Internal Medicine; Visit Provider Internal Medicine
DX: Z98.84 Bariatric surgery status (principal); E11.65 Type 2 diabetes mellitus with hyperglycemia; I10 Essential (primary) hypertension; K21.9 Gastro-esophageal reflux disease without esophagitis; E78.00 Pure hypercholesterolemia, unspecified; F41.1 Generalized anxiety disorder

== ENCOUNTER → 2024-08-02 09:39 | Outpatient (BNVA) | payer OTHER, SELFPAY | PROVIDERS: PCP Internal Medicine; Visit Provider Internal Medicine | DX: Z98.84 Bariatric surgery status (principal); E11.65 Type 2 diabetes mellitus with hyperglycemia; I10 Essential (primary) hypertension; K21.9 Gastro-esophageal reflux disease without esophagitis; E78.00 Pure hypercholesterolemia, unspecified; F41.1 Generalized anxiety disorder | CPT/HCPCS: 99212 ==

== ENCOUNTER 2024-08-04 08:09 | Outpatient (AMB) | payer OTHER, SELFPAY ==
[2024-08-04 08:13] VITALS: BP 120/72; PULSE 76; O2SAT 98; BMI 32.7
--- NOTE | 2024-08-04 08:13 | A.OFFVIS_ITS ---
Vital Signs 08/04/24 08:13 Height 4 ft 11 in Weight 161 lb 13.109 oz BMI 32.7 BP 120/72 Blood Pressure Location Rt brachial Position Sitting Pulse 76 Pulse Source Pulse Oximeter Pulse Oximetry (%) 98 Oxygen Delivery Method Room Air Intake Visit Reasons: 6 mos FUV. Intake Note: ESTABLISHED PATIENT Rosa presents in office today for a scheduled 6 mos FUV. Meds and Allergies reviewed? Y No recent or relevant surgeries? N Any significant concerns or new changes? NO significant changes or concerns. Pt started senna plus per Dr. Velazco which has been helping significantly. Pharmacy verified? [facility]. Allergies lisinopril [LISINOPRIL] Allergy (Intermediate, Verified 08/04/24 08:14) SWELLING/BLURRY VISION house dust Allergy (Mild, Verified 08/04/24 08:14) Hives HPI HPI 6 mos FUV.: Details: LAST VISIT: GERD (gastroesophageal reflux disease) Constipation Dehiscence of external surgical wound Lower abdominal pain Plan Continue avoiding dietary triggers. Increase fluid intake and activity to promote better bowel motility. Patient can take Dulcolax. Will call patient with CT scan results when available. Patient will follow-up in the office in 6 months. Patient will call if she will have any GI concerning symptoms. She is agreeable to this plan and verbalizes understanding of instructions. She was given the opportunity to ask questions and all questions answered. ? Thank you for allowing me to participate in her care Medications New bisacodyl 10 mg (2 x 5 mg) PO DAILY 60 tabs 2RF Discontinued lactulose Discontinued Reason: Doctor's Order 20 grams (30 mL) PO BID 2,880 mL 0RF K59.00 sennosides (Natural Senna Laxative) Discontinued Reason: Doctor's Order 17.2 mg (2 x 8.6 mg) PO BEDTIME 60 tabs 3RF constipation K59.00 TODAY'S VISIT: Patient is here today for follow-up. Patient reports that she has been feeling better. She is taking senna with Colace and normally has a bowel movements cande ly, however sometimes if she is unable to have a bowel movement she will take Dulcolax. Patient denies any abdominal pain or discomfort. Oral surgery with root canal a month ago or so and patient end up with infection. On antibiotic and on soft and liquid diet. Patient reports that she lost 10 lb because of that. Patient denies any abdominal pain or discomfort. Denies dyspepsia, dysphagia or odynophagia. 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 Mother Depression Anxiety Asthma Diabetes Hypertension Brother Bipolar 1 disorder Sister No problems noted. Sister No problems noted. Sister No problems noted. Son No problems noted. Son No problems noted. Daughter No problems noted. Maternal Grandmother Lymphoma Other FH: mental illness Substance use Social History Household Members: Children Housing: House Do you presently have visiting nurse or other home services: No Alcohol intake: current Alcohol intake frequency: holidays/special occasions only Comment: social Patient Tobacco Use Status: Never used Tobacco e-Cigarette/Vaping Use: Never Used Second Hand Smoke Exposure: No Advance Directives Date on File: 08/16/22 service: No Current occupational status: employed Current occupational exposures/hazards: No Cognitive needs: No Hearing needs: No Vision needs: Yes Review of Systems Const Denies weight gain and Denies weight loss ENT Reports no additional complaints, Denies dysphagia and Denies odynophagia Card Reports no additional complaints Resp Reports no additional complaints GI Denies abdominal pain, Denies belching, Denies melena, Denies bloating, Denies change in bowel habits, Reports constipation (occasional), Denies dysphagia, D enies excessive flatus, Denies dyspepsia, Reports heartburn, Denies diarrhea, Denies loose stools, Denies nausea, Denies odynophagia and Denies vomiting Reports no additional complaints Musc Reports no additional complaints Neuro Reports no additional complaints Psych Reports no additional complaints Endo Reports no additional complaints Physical Exam Vital Signs: Last Vital Signs Pulse 76 08/04/24 08:13 BP 120/72 08/04/24 08:13 Pulse Ox 98 08/04/24 08:13 Oxygen Delivery Method Room Air 08/04/24 08:13 BMI result Body Mass Index 32.7 Const General: healthy appearing and no acute distress Nutritional Appearance: obese Orientation/consciousness: patient oriented x3 Resp Effort & Inspection: normal respiratory effort, able to speak in complete sentences, no tracheal deviation and symmetric chest movement Auscultation: clear to auscultation bilaterally Cardio Rate: regular rate GI Inspection: Yes normal to inspection, No distended and Yes obesity Palpation (GI): Soft to palpation, not firm, nontender and No hepatosplenomegaly present Auscultation: normal bowel sounds General: Yes no CVA tenderness Back/Spine/Pelvis Back: no CVA tenderness Skin General skin exam: elasticity normal, turgor normal and dry skin Neuro General: patient oriented x3 Psych Appearance: grossly normal Mental Status: mental status grossly normal Results Reviewed Results Reviewed: CT OF ABDOMEN AND PELVIS FINDINGS: LUNG BASES: The visualized lung bases are unremarkable. LIVER, GALLBLADDER, AND BILIARY TREE: Tiny hypodensity in the left lobe of the liver is is too small to characterize, but stable compared to prior and most likely a cyst or hemangioma. The gallbladder is unremarkable with no evidence of radiopaque gallstones, gallbladder wall thickening, or obvious pericholecystic inflammatory changes. PANCREAS: No discrete pancreatic mass or pancreatic ductal dilatation. SPLEEN: The spleen appears normal. ADRENAL GLANDS: No adrenal mass. KIDNEYS AND URETERS: The kidneys are normal in size, shape, and attenuation. No hydronephrosis, hydroureter, or calculi seen. No perinephric stranding. BLADDER: Unremarkable. GASTROINTESTINAL TRACT: Small hiatal hernia. Sleeve gastrectomy. The small and large bowel are normal in caliber. No discrete bowel mass. No acute inflammatory changes. ABDOMINAL WALL: No significant hernia is appreciated. LYMPH NODES: No pathologically enlarged lymph nodes. VASCULAR: No aortic aneurysm. Mild aortoiliac atherosclerosis. PELVIC VISCERA: Unremarkable. OSSEOUS STRUCTURES: No suspicious osseous lesions. CT/CT abdomen pelvis w IV con IMPRESSION: No explanation for abdominal pain. Assessment & Plan Assessment & Plan (1) GERD (gastroesophageal reflux disease): Code(s): K21.9 - Gastro-esophageal reflux disease without esophagitis Category: Medical Qualifiers: Esophagitis presence: esophagitis presence not specified Qualified Code(s): K21.9 - Gastro-esophageal reflux disease without esophagitis (2) Constipation: Code(s): K59.00 - Constipation, unspecified Category: Medical Qualifiers: Constipation type: chronic idiopathic constipation Qualified Code(s): K59.04 - Chronic idiopathic constipation (3) Dehiscence of external surgical wound: Code(s): T81.31XA - Disruption of external operation (surgical) wound, not elsewhere classified, initial encounter Category: Medical Qualifiers: Encounter type: sequela Qualified Code(s): T81.31XS - Disruption of external operation (surgical) wound, not elsewhere classified, sequela (4) Lower abdominal pain: Code(s): R10.30 - Lower abdominal pain, unspecified Category: Medical Plan CT scan results discussed with patient no acute findings. Patient is feeling better she can continue taking senna as ordered by her PCP or she can take 1-2 Dulcolax tablets if no BM. Increase fluid intake and activity to promote better bowel motility. Avoid dietary triggers. Occasional postprandial abdominal bloating most likely related to the food that she eats. Avoid food that is gassy like beans, onions. Follow-up in 6 months. Patient will call if she will have any GI concerning symptoms. Patient is agreeable to current plan of care and verbalizes understanding of instructions. She was given the opportunity to ask questions and all questions answered Thank you for allowing me to participate in her care Coding Level of Care Code Est Pt Level 3 (08865) Diagnoses Gastroesophageal reflux disease, unspecified whether esophagitis present K21.9 Esophagitis presence: esophagitis presence not specified Chronic idiopathic constipation K59.04 Constipation type: chronic idiopathic constipation Disruption of external surgical wound, sequela T81.31XS Encounter type: sequela Lower abdominal pain R10.30 Time Spent (min) 25 Comment 15 minutes spent with patient and additional 10 minutes spent reviewing her records
== END 2024-08-04 10:03 | disposition home or self-care (01) ==
PROVIDERS: PCP Internal Medicine; Visit Provider Nurse Practitioner Family
DX: K21.9 Gastro-esophageal reflux disease without esophagitis (principal); K59.04 Chronic idiopathic constipation; T81.31XS Disruption of external operation (surgical) wound, not elsewhere classified, sequela; R10.30 Lower abdominal pain, unspecified
CPT/HCPCS: 99213

== ENCOUNTER → 2024-08-04 08:09 | Outpatient (BNVA) | payer OTHER, SELFPAY | PROVIDERS: PCP Internal Medicine; Visit Provider Nurse Practitioner Family | DX: K21.9 Gastro-esophageal reflux disease without esophagitis (principal); K59.04 Chronic idiopathic constipation; R10.30 Lower abdominal pain, unspecified; T81.31XS Disruption of external operation (surgical) wound, not elsewhere classified, sequela; X58.XXXS Exposure to other specified factors, sequela | CPT/HCPCS: 99212 ==

== ENCOUNTER 2024-11-07 08:13 | Outpatient (REF) | payer OTHER, SELFPAY ==
[2024-11-07 10:42] LABS: MANUAL DIFF FLAG NO
[2024-11-07 10:50] LABS: Basophils Percent Auto 0.7 % (0-2); Eosinophils Absolute Auto 0.1 X10*3/uL (0.0-0.4); Eosinophils Percent Auto 1.3 % (0-4); Hematocrit 43.8 % (37.0-47.0); Hemoglobin 14.5 g/dl (12.0-16.0); Imm Gran Abs Auto 0.01 X10*3/uL (0.00-0.03); Imm Gran Pct Auto 0.2 % (0.0-0.4); Lymphocytes Absolute Auto 1.7 X10*3/uL (1.2-4.9); Lymphocytes Percent Auto 30.1 % (20-40); Mean Corpuscular HGB Conc 33.1 g/dl (31.0-35.0); Mean Corpuscular Hemoglobin 27.4 pg (27.0-33.0); Mean Corpuscular Volume 82.6 fL (80.0-98.0); Mean Platelet Volume 11.4 fL (9.4-12.3); Monocytes Absolute Auto 0.4 X10*3/uL (0.1-1.2); Monocytes Percent Auto 6.9 % (2-11); Neutrophils Absolute Auto 3.3 x10*3/uL (2.0-8.3); Neutrophils Percent Auto 60.8 % (45-73); Platelet Count 295 X10*3/uL (160-400); Red Cell Distribution Width 13.1 % (11.0-16.0); White Blood Count 5.5 X10*3/uL (4.8-10.8)
[2024-11-07 11:13] LABS: Estimated Average Glucose 108 mg/dL; Hemoglobin A1c % 5.4 % (<6.0); Total Hemoglobin (HGBA1C) 3832.3211 umol/L
[2024-11-07 11:33] LABS: Alanine Aminotransferase 21 U/L (0-31); Albumin Level 4.1 g/dL (3.5-5.0); Anion Gap 11 (12-20); Aspartate Amino Transferase 18 U/L (5-31); Bilirubin Total 0.4 mg/dL (0.0-1.0); Blood Urea Nitrogen 12 mg/dL (9-16); Calcium 9.5 mg/dL (8.4-10.2); Carbon Dioxide 29 mmol/L (22-29); Chloride 107 mmol/L (96-108); Cholesterol 260 mg/dL (<200); Estimated Glomerular Filt Rate > 60; Glucose Random 84 mg/dL (60-115); HDL Cholesterol 70 mg/dL (>40); LDL Cholesterol Calculated 164 mg/dL (<100); Magnesium 2.1 mg/dL (1.6-2.6); Phosphorus 3.4 mg/dL (2.7-4.5); Potassium 3.6 mmol/L (3.3-5.1); Sodium 143 mmol/L (135-145); Total Protein 7.4 g/dL (6.5-8.0); Triglycerides 132 mg/dL (<150)
[2024-11-07 11:58] LABS: Folate 6.9 ng/mL (> or = 4.0); Vitamin B12 561 pg/mL (200-900)
[2024-11-07 12:15] LABS: Free T4 (Free Thyroxine) 1.06 ng/dL (0.71-1.85); Thyroid Stimulating Hormone 2.04 uIU/mL (0.32-4.0); Vitamin D 25-OH Total 76.8 ng/mL (>30)
[2024-11-07 12:50] LABS: Alkaline Phosphatase 74 U/L (39-117)
== END 2024-11-07 08:14 | disposition home or self-care (01) ==
LOC: HO.HMGCLDS 08:13
PROVIDERS: PCP Internal Medicine; Visit Provider Internal Medicine
DX: E78.00 Pure hypercholesterolemia, unspecified (principal)
CPT/HCPCS: 36415; 80053; 80061; 82306; 82607; 82746; 83036; 83735; 84100; 84439; 84443; 85025

== ENCOUNTER 2024-11-14 10:56 | Outpatient (AMB) | payer OTHER, SELFPAY ==
--- NOTE | 2024-11-14 11:03 | A.OFFPC_ITS ---
Vital Signs 11/14/24 11:06 11/14/24 11:27 Height 4 ft 11 in Weight 162 lb 8 oz BMI 32.8 BP 132/72 Blood Pressure Location Lt brachial Position Sitting Pulse 75 Pulse Source Pulse Oximeter Temp 97.3 F Temp Source Temporal Artery Scan Pulse Oximetry (%) 90 L 99 Oxygen Delivery Method Room Air Room Air Intake Visit Reasons: Annual pe Intake Note: Patient is here today for a physical. Steam Clean Machine Operator Required: No Loan Workout Officer: Not Required per policy Accompanied by: Self / Same As Patient Allergies lisinopril [LISINOPRIL] Allergy (Intermediate, Verified 11/14/24 11:06) SWELLING/BLURRY VISION house dust Allergy (Mild, Verified 11/14/24 11:06) Hives Medication List - Last Reconciled 11/14/24 by Nicole Velazco MD bisacodyl 10 mg (2 x 5 mg) PO DAILY jlfjqbvdsg-aherpiznfkopj-muzs 50-300-40 mg 1 cap PO Q8H PRN calc-D3-mag cit,ox-K2-herb 353 300 mg-25 mcg- 66 mg-37.5 mcg (Alive Calcium- Vitamin D3-K2) tabs PO [chelated magnesium PO] cyanocobalamin (vitamin B-12) 1,000 mcg PO DAILY fluoxetine 20 mg PO BID gauze bandage (Kerlix) As directed lorazepam 0.5 mg PO DAILY PRN losartan 25 mg PO DAILY psyllium husk (Fiber (psyllium husk)) 0.4 grams PO BEDTIME PRN sennosides-docusate sodium 8.6-50 mg (Senna Plus) 2 tab-caps (2 x 8.6-50 mg) PO BEDTIME Shower Chair As directed tirzepatide (weight loss) (Zepbound) 5 mg (0.5 mL) subcut QWEEK tramadol 50 mg PO DAILY PRN trazodone 100 mg PO BEDTIME PRN Tobacco use date assessed: 11/14/24 Dental Screening Dental Screen Date: 11/14/24 Did you have a dental visit in the last 12 months?: Yes Did you have a dental problem in the last 6 months where you did not have access to dental care?: No Was dental information given to patient?: Patient has dentist HPI Annual pe HPI Details going to [place] - getting yellow and typhoid vaccine PFS Medical History Breast cancer screening by mammogram Seizure GERD (gastroesophageal reflux disease) Cervical cancer screening Breast cancer screening Constipation Essential hypertension PVC (premature ventricular contraction) 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 Mother Depression Anxiety Asthma Diabetes Hypertension Brother Bipolar 1 disorder Sister No problems noted. Sister No problems noted. Sister No problems noted. Son No problems noted. Son No problems noted. Daughter No problems noted. Maternal Grandmother Lymphoma CVA (cerebral vascular accident) Maternal Grandfather Oral cancer Other FH: mental illness Substance use Social History (Updated 11/14/24 @ 11:35 by Nicole Velazco MD) Household Members: Children Housing: House Do you presently have visiting nurse or other home services: No Alcohol intake: current Alcohol intake frequency: holidays/special occasions only Comment: social once a month 1 glass Patient Tobacco Use Status: Never used Tobacco e-Cigarette/Vaping Use: Never Used Second Hand Smoke Exposure: No Advance Directives Date on File: 08/16/22 service: No Current occupational status: employed Current occupational exposures/hazards: No Cognitive needs: No Hearing needs: No Vision needs: Yes (Glasses) Questionnaire PHQ-9 Over the last 2 weeks, how often have you been bothered by any of the following problems? 1. Little interest or pleasure in doing things: not at all 2. Feeling down, depressed, or hopeless: not at all 3. Trouble falling or staying asleep, or sleeping too much: nearly every day 4. Feeling tired or having little energy: several days 5. Poor appetite or overeating: several days 6. Feeling bad about yourself - or that you are a failure or have let yourself or your family down: not at all 7. Trouble concentrating on things, such as reading the newspaper or watching television: not at all 8. Moving or speaking so slowly that other people could have noticed. Or the opposite - being so fidgety or restless that you have been moving around a lot more than usual: several days 9. Thoughts that you would be better off or of hurting yourself in some way: not at all Total score: 6 Depression Screening Interpretation: Positive Depression Screening Done: Yes Source: Developed by Drs. Eleuterio Mata, Sonia Grimes, Constantin Giron and colleagues, with an educational radha from [employer]. Thrive Questionnaire Date Thrive assessed: 11/07/24 I am a: Patient What is your living situation today?: I have a steady place to live Within the past 12 months, did the food you bought not last and you didn't have the money to get more?: Never true Within the past 12 months, did you worry whether your food would run out before you got money to buy more?: Never true Do you have trouble paying for medicines?: No Do you have trouble getting transportation to medical appointments?: No Do you have trouble paying your heating and electricity bill?: No Do you have trouble taking care of your child, family member or friend?: No Do you have trouble with day-to-day activities such as bathing, preparing meals, shopping, managing finances, etc.?: No Are you currently unemployed and looking for a job?: No Are you interested in more education?: No Please select the resources that you would like help with: None Currently or been in a relationship where the following occur: No concerns reported THRIVE Score: 0 AUDIT C Alcohol Use Questionnaire (AUDIT-C) 1. How often do you have a drink containing alcohol?: Monthly or less 2. How many drinks containing alcohol do you have on a typical day when you are drinking?: 1 or 2 3. How often do you have six or more drinks on one occasion?: Never Total Score: 1 ALAYNA-7 AMB Questionnaire ALAYNA-7 Date ALAYNA - 7 assessed: 11/14/24 Feeling nervous, anxious, or on edge: 1 = Several days Not being able to stop or control worryin = Several days Worrying too much about different things: 1 = Several days Trouble relaxin = Several days Being so restless that it is hard to sit still: 1 = Several days Becoming easily annoyed or irritable: 0 = Not at all Feeling afraid as if something awful might happen: 1 = Several days Total ALAYNA-7 score (0-4 normal; 5-9 mild; 10-14 moderate; 15-21 severe): 6 Source: Developed by Drs. Eleuterio Mata, Sonia Grimes, Constantin Giron and colleagues, with an educational radha from [employer]. Review of Systems Const Denies poor appetite and Denies weakness Eyes Denies no additional complaints ENT Reports Normal hearing present, Denies dizziness, Denies nasal congestion, Denies tinnitus and Denies sore throat Card Denies chest pain, Denies syncope, Denies rapid heart rate and Denies dyspnea Resp Denies cough and Denies dyspnea GI Denies change in stool character, Reports constipation, Denies diarrhea, Denies nausea and Denies vomiting Denies urinary frequency, Denies difficulty voiding and Denies dysuria Neuro Reports Normal hearing present, Denies confusion, Denies dizziness, Denies syncope and Denies weakness Psych Denies confusion Physical exam (Primary Care) Vital Signs: Last Vital Signs Temp 97.3 F 11/14/24 11:06 Pulse 75 11/14/24 11:06 BP 132/72 11/14/24 11:06 Pulse Ox 99 11/14/24 11:27 Oxygen Delivery Method Room Air 11/14/24 11:27 BMI result Body Mass Index 32.8 Tobacco/Smoking Status: Tobacco use Status Tobacco use date assessed 11/14/24 11/14/24 11:10 Patient Tobacco Use Status Never used Tobacco 11/14/24 11:35 e-Cigarette/Vaping Use Never Used 11/14/24 11:35 PHQ-9: PHQ-9 Score PHQ-9: Total score 6 11/14/24 11:25 Depression Screening Interpretation: Positive Thrive Assessment: Date of Thrive Assessment Date Thrive assessed 11/07/24 11/14/24 11:04 Currently or been in a relationship where the following occur: No concerns reported Const General: No confusion Orientation/consciousness: No confusion HENMT Head: Yes normocephalic Ears: external ears normal and TM's normal bilaterally Face and sinus: Yes normal facial exam Mouth: moist mucous membranes Throat: Yes tonsils normal Eyes Conjunctivae: conjunctivae normal Pupils: Equal, round and reactive pupils present and Pupil accommodation reflex normal Direct Ophthalmoscopy: normal light reflex Neck Neck: No lymphadenopathy Thyroid: Thyroid normal Chest Chest palpation & inspection: normal inspection of the chest Resp Effort & Inspection: normal respiratory effort and no audible wheezes Auscultation: clear to auscultation bilaterally, no crackles, no wheezes and lung sounds not diminished Cardio Rate: regular rate Rhythm: regular rhythm Peripheral pulses: radial pulses present and dorsalis pedis present GI Palpation (GI): no masses Auscultation: normal bowel sounds and normoactive bowel sounds Rectal Exam - Female: deferred Skin General skin exam: no rashes or lesions noted Rashes: no rashes Neuro General: No confusion Cranial nerves: Yes Equal, round and reactive pupils present and Yes Normal hearing present Cognition (Neuro): normal cognition Gait exam (Neuro): Normal gait present Motor exam (neuro): 5/5 motor strength present throughout Deep tendon reflexes (DTR's): Right brachioradialis reflex intensity grade: 2+, Left brachioradialis reflex intensity grade: 2+, Right patellar reflex intensity grade: 2+ and Left patellar reflex intensity grade: 2+ Extrem General: No edema Coding Level of Care Code Est Pt Prev Care 40-64y(26329) Diagnoses Annual physical exam Z00.00 Type 2 diabetes mellitus with hyperglycemia, without long-term current use of insulin E11.65 Diabetes mellitus long term care social worker insulin use: without assisted use Essential hypertension I10 Pure hypercholesterolemia E78.00 Hyperlipidemia type: pure hypercholesterolemia Generalized anxiety disorder F41.1 Obesity (BMI 30.0-34.9) E66.9 Assessment & Plan Assessment & Plan (1) Annual physical exam: Code(s): Z00.00 - Encounter for general adult medical examination without abnormal findings Category: Medical Plan: Patient is advised to eat healthy, keep well hydrated, keep active and have adequate sleep. (2) Type 2 diabetes mellitus with hyperglycemia: Comment: [facility] [address] [address] 01/2023 Code(s): E11.65 - Type 2 diabetes mellitus with hyperglycemia Category: Medical Qualifiers: Diabetes mellitus long term care social worker insulin use: without assisted use Qualified Code(s): E11.65 - Type 2 diabetes mellitus with hyperglycemia Plan: Decrease the amount of carbohydrate intake, pasta, bread, rice and potatoes are all sugar and that is aside from all the sweet stuff, remember that fruits are good but they are Sweet also. Hemoglobin A1c goal of less than 6.5. Diet controlled (3) Essential hypertension: Code(s): I10 - Essential (primary) hypertension Category: Medical Plan: Continue with blood pressure medication. Decrease salt intake and exercise on losartan 25 mg once a day (4) Hyperlipidemia: Comment: currently on no meds Code(s): E78.5 - Hyperlipidemia, unspecified Category: Medical Qualifiers: Hyperlipidemia type: pure hypercholesterolemia Qualified Code(s): E78.00 - Pure hypercholesterolemia, unspecified Plan: Avoid fried foods, chicken skin, eggs, butter margarine, pastries and meat. Be it pork or beef they have a lot of cholesterol LDL goal of less than 100 and triglyceride of less than 150 presently no medication (5) Generalized anxiety disorder: Comment: Declined referral for counseling presently. Code(s): F41.1 - Generalized anxiety disorder Category: Medical Plan: Continue with therapy (6) Obesity (BMI 30.0-34.9): Code(s): E66.9 - Obesity, unspecified Category: Social Hx Plan: Diet and exercise Plan History of Present Illness The patient is a 54-year-old female presenting for an annual physical exam. Her chronic medical conditions include essential hypertension, type 2 diabetes mellitus, and hyperlipidemia. She also has a history of GERD and generalized anxiety disorder. Her BMI indicates obesity, and she has been monitoring the impact of her lifestyle choices on her weight and cholesterol levels since her laparoscopic sleeve gastrectomy in April 2020. Her diabetes mellitus is currently well-controlled with a target A1c of less than 6.5. Recent tests and labs demonstrate stable normoglycemia and normoinsulinemia. Despite using losartan for hypertension, her blood pressure records indicate controlled hypertensive status, but her hyperlipidemia remains a concern, with efforts ongoing to achieve and maintain optimal lipid levels. The patient also reports a history of migraine headaches, which are treated with medications such as Excedrin and Tylenol when kgnr-mhm-pdpwrst options are insufficient. She expresses a need to adjust her dietary habits, especially in terms of reducing intake of processed and high-cholesterol foods like ham and cheese. The patient maintains a history of surgical interventions, notably a stroke- related brain surgery in 1991 and abdominoplasty with mastopexy in 2021. Gastroenterology consultation for constipation is ongoing, with active pharmacotherapy including bisacodyl and Senna. Health Maintenance - Mammography scheduled for September 2024. - Colonoscopy is up to date. - Last comprehensive lab work was conducted on November 07, showing normal hemoglobin, electrolyte, renal, liver function levels. - Influenza and pneumococcal vaccination status up to date. - Counseled on dietary modifications to achieve a healthier cholesterol profile. - Yellow fever and typhoid vaccinations received prior to travel. Social History - Engages in [employer] work and is scheduled for a trip to [place]. - Jehovah?s Witness, regularly participates in community and anabaptist events. - Alcohol consumption is minimal and social, about once a month, consists of one glass of wine. - No history of smoking or recreational drug use. - Consumes high-cholesterol foods which are targeted for reduction. - Exercises intermittently due to joint pain, exploring gradual weight management strategies. Review of Systems - Musculoskeletal: Reports joint pain, particularly in shoulders, more significant on the right side. - Respiratory: Denies shortness of breath, chest pain, or regular heartburn not associated with dietary indiscretion. - Gastrointestinal: Denies nausea; bowel movements medicated for constipation. - Genitourinary: Wakes up once a night to urinate. - Neurological: Denies dizziness, loss of consciousness, or residual effects from past stroke. Physical Exam General: Cooperative, healthy appearing, comfortable, no acute distress, and well developed Orientation: Patient oriented x3 Limitations: No limitations Head: Normal to inspection Ears: Hearing grossly normal bilaterally Nose: Normal external nose present Face and sinus: Normal facial exam Eyes: Appearance normal, both eyes and all related structures Neck: Normal visual inspection and Yes full ROM Respiratory: Normal respiratory effort and able to speak in complete sentences. Clear to auscultation bilaterally Cardiovascular: Regular rate and rhythm. Normal S1 and S2 GI: Normal to inspection. Soft to palpation and nontender Skin: No rashes or lesions noted Neuro: Patient oriented x3 Extremities: Normal to inspection, but patient reports joint pain in shoulders, mainly on the right side. Tenderness noted on right shoulder upon examination. Results - Labs: November 07 blood work shows normal CBC, electrolytes, renal and liver function. Elevated LDL cholesterol at 164 mg/dL. - Screenings: Mammogram due in September 2024, Colonoscopy up to date. Plan We will continue the current management of hypertension and diabetes, ensuring stable blood pressure and glycemic levels. For hyperlipidemia, diet modification is paramount, and we will reconsider pharmacotherapy if necessary. Ongoing use of bisacodyl and Senna for constipation is advised. I will reassess cholesterol levels in three months following dietary changes. Migraine management will minimize narcotic use. The patient has received necessary vaccines for travel, and preventive measures against waterborne illnesses have been discussed. Patient was informed and verbally consented to the use of an ambient scribe for clinic note documentation during this visit. Discussion Notes During our discussion, we focused significantly on the importance of lifestyle modifications in managing the patient's hyperlipidemia. I underscored the contributions of dietary choices to her current lipid profile and provided counseling on reducing cholesterol intake. We discussed the continuation of her current medication regimen, addressing each aspect of her chronic conditions, particularly hypertension and diabetes. I reiterated the importance of monitoring her LDL levels and dietary adjustments to lower these values. I advised her to continue using bisacodyl and Senna for constipation as needed, and to minimize the use of narcotic options for migraine headaches while exploring alternative treatments. We also discussed the preventive measures required for her trip to [place], including preventative behaviors against illness and vaccine schedules. Patient Instructions - Maintain current medication regimen for hypertension and diabetes. - Undertake dietary adjustments with a focus on reducing high-cholesterol foods. - Continue constipation management with bisacodyl and Senna. - Minimize use of narcotics for migraine management; use Excedrin as needed. - Follow through with recommended preventive measures during travel. - Schedule a follow-up for re-evaluation of cholesterol levels in three months. - Be vigilant for any symptoms needing prompt medical attention. - Engage in moderate exercise to support overall health and weight management. Orders: Orders Lipid Panel 3 Months E78.00 - Pure hypercholesterolemia, unspecified Rubeola IgG (Measles) Today I10 - Essential (primary) hypertension, Z02.0 - Encounter for examination for admission to educational [facility] Mumps Virus IgG Antibody Today I10 - Essential (primary) hypertension, Z02.0 - Encounter for examination for admission to [facility] institution Comprehensive Met. Panel 3 Months E78.00 - Pure hypercholesterolemia, unspecified Rubella IgG Antibody Today I10 - Essential (primary) hypertension, Z02.0 - [facility]counter [facility] Varicella IgG Antibody Today I10 - Essential (primary) hypertension, Z02.0 - Encounter for examination for [facility] to [facility] Hepatitis B,C Profile Today I10 - Essential (primary) hypertension, R79.89 - Other specified abnormal findings of blood chemistry Medications: Changed From tirzepatide (weight loss) (Zepbound) 5 mg (0.5 mL) subcut QWEEK 2 mL 3RF E66.9 - Obesity, unspecified To tirzepatide (weight loss) 7.5 mg (0.5 mL) subcut QWEEK 2 mL 3RF E66.9 - Obesity, unspecified
[2024-11-14 11:06] VITALS: BP 132/72; PULSE 75; TEMP 36.3; O2SAT 90; BMI 32.8
[2024-11-14 11:27] VITALS: O2SAT 99
--- OUTSIDE RECORDS SUMMARY | 2024-11-14 13:10 | XMS_ITS ---
Author Organization [employer] [facility] Address [address] [place] [address] Care Team Providers Care Manager Enrollment Name Role Phone BINH ALLISON M.D. Primary Care Provider Shaina Go [phone] REASON FOR VISIT ORDER FOR BILAT BREAST ULTRA Encounters Encounter Location Date Provider Diagnosis [facility] [employer] [facility] [employer] [facility] [address] [place] [address] 06/17/2023 Shaina Laureano Plan Of Treatment Next Appt Details Provider Name:Shaina alegria, 03/28/2025 08:00:00 AM, [address], [address], [place], [address], Progress Notes * LING PRESLEYDOB: [birth year] (53 yo F)Acc No.[id number]:06/17/2023 Patient:?KONSTANTIN PRESLEYARITA :1970???Age:53 Y???Sex:Female Address:[address] [place] [address], [id number] * true * Date:? Generated for Printi ng/Bensong/eTransmitting on:?11/14/2024 01:10 PM EDT
--- OUTSIDE RECORDS SUMMARY | 2024-11-14 13:10 | XMS_ITS | Patient Health Record ---
Author Organization [facility] Address [address] [place] [address] [address] [place] [address] Care Team Providers Care Feather Separator Name Role Phone BINH ALLISON M.D. Primary Care Provider Shaina Go Unavailable [phone] Allergies Allergen (clinical drug ingredient) Drug/Non Drug Allergy documented on EMR Reaction Allergy Type Onset Date Status lisinopril Lisinopril Nasal Drip Drug Allergy Acti ve Results Component Value Reference Range Notes Urinalysis Reviewed date:03/22/2024 08:50:07 AM Interpretation: Performing Lab: Notes/Report: PH 5.0 PROTEIN Neg GLUCOSE Neg BLOOD Trace Reason For Referral No Information Medications Medication SIG (Take, Route, Frequency, Duration) Notes Start Date End Date Status Multi-Vitamin - 1 tablet Orally Once a day for 30 day(s) Active FLUoxetine HCl 20 MG TAKE ONE CAPSULE BY MOUTH TWICE A DAY Oral for 30 Active Vitamin K Active traZODone HCl 50 MG TAKE ONE TABLET BY M OUTH EVERY DAY AT BEDTIME NEEDED Oral for 30 Active Vitamin D 125 MCG (5000 UT) TAKE ONE CAPSULE BY MOUTH EVERY DAY Oral for 30 Active Wsemkquics-FBNH-Czromlaa 50-300-40 MG TAKE ONE CAPSULE BY MOUTH EVERY 8 HOURS NEEDED FOR PAIN Oral for 3 Active Trulicity 1.5 MG/0.5ML Subcutaneous for 28 Days Active Fiber - as directed Orally A ctive Vitamin B12 1000 MCG 1 tablet Orally Onc e a day for 30 day(s) Active LORazepam 0.5 MG (Schedule IV Drug) T ML ONE TABLET BY MOUTH TWICE A DAY NEEDED Oral for 30 Active Magnesium 200 MG Oral for 30 A ctive traMADol HCl 50 MG Oral for 7 Active Social History Tobacco Use: Social History Observation Description Date Details (start date - stop date) Never Smoker NA - NA Sexual History Question Answer Notes Had sex in the past 12 months (vaginal, oral, or anal)? No AUDIT-C (Standard) Question Answer Notes Did you have a drink containing alcohol in the p ast year? No Points 0 Interpretation Negative Tobacco Control (Standard) Question Answer Notes Tobacco use: Nonsmoker Problems Problem Type SNOMED Code ICD Code Onset Dates Problem Status W/U Status Risk Notes Problem Postmenopausal atrophic vaginitis (07997415) Postmenopausal atrophic vaginitis (N95.2) Active confirmed Problem Gynecological examination normal (715653441437045) Encounter for gynecological examination (general) (routine) without abnormal findings (Z01.419) Active confirmed Problem Morbid obesity (disorder) (721663571) Morbid (severe) obesity due to excess calories (E66.01) Active confirmed Problem Menopause (551209067) Menopausal and female climacteric states (N95.1) Active confirmed Vital Signs Temperature 97.7 degrees Fahrenheit 03/22/2024 Blood pressure diastolic 86 mm Hg 03/22/2024 Height 59.5 in 03/22/2024 Blood pressure systolic 136 mm Hg 03/22/2024 Weight 171 lbs 03/22/2024 BMI 33.96 kg/m2 03/22/2024 Encounters Encounter Location Date Provider Diagnosis [address] [place] [address] 03/22/2024 Shaina Laureano Encounter for gynecological examination (general) (routine) without abnormal findings Z01.419 and Encounter for screening mammogram for malignant neoplasm of breast Z12.31 Assessments Encounter Date Diagnosis (ICD Code) Assessment Notes Treatment Notes Treatment Clinical Notes Section Notes 03/22/2024 Encounter for gynecological examination (general) (routine) without abnormal findings (ICD-10 - Z01.419) NO PAP TEST, DUE IN 2025. 03/22/2024 Encounter for screening mammogram for malignant neoplasm of breast (ICD-10 - Z12.31) REGULAR MAMMOGRAMS AND SBE'S WERE RECOMMENDED. Plan Of Treatment Pending Test Test Name Order Date Urinalysis 12/13/2017 Urinalysis 03/12/2022 ESTRADIOL 03/12/2022 FSH 03/12/2022 LH 03/12/2022 THIN PREP,HPV,ANUJA IF HPV+ (>29YR)(SCRN) 12/13/2017 MM Digital Mammo Screening 03/12/2022 MM Digital Mammo Screening 03/15/2023 MM Digital Mammo Screening 03/22/2024 MM Digital Mammo Screening 03/04/2021 PELVIC ULTRASOUND W/TRANSVAGINAL 021 PELVIC ULTRASOUND W/TRANSVAGINAL 019 PELVIC ULTRASOUND W/TRANSVAGINAL 020 Next Appt Details Provider Name:Shaina alegria, 03/28/2025 08:00:00 AM, [address], [address], [place], [address], Medical (General) History Medical History History ICD Code Other microscopic hematuria R31.29 Unspecified ovarian cyst, right side N83 .201 Migraine without aura, intractable, with out status migrainosus G43.019 Other recurrent depressive disorders F33 .8 Calculus of kidney N20.0 Morbid (severe) obesity due to excess ca lories E66.01 Atypical squamous cells of u ndetermined significance on cytologic smear of cervix (ASC-US) R87.610 Menopausal and female climacteric states N95.1 Postmenopausal atrophic vaginitis N95.2 Morbid (severe) obesity due to excess ca lories E66.01 Surgical History Surgery Date(Month/Year) Head Surgery 06/1991 Lung Surgery 06/1991 Hysterectomy 05/2000 Bariactric and Oral Surgery Tummy Tuck/Breast Lift 07/21/22 Septic Shock Emergency Surgery 08/2022 Hospitalization History Reason Date(Month/Year) See Surgical Hx 3 Vaginal Deliveries
--- OUTSIDE RECORDS SUMMARY | 2024-11-14 13:10 | XMS_ITS ---
Author Organization [facility] Address [address] [place] [id number] Care Team Providers Care Decorative Engraver Name Role Phone BINH ALLISON M.D. 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 50-59* Medications Medication SIG (Take, Route, Frequency, Duration) Notes Start Date End Date Status Multi-Vitamin - 1 tablet Orally Once a day for 30 day(s) Active FLUoxetine HCl 20 MG TAKE ONE CAPSULE BY MOUTH TWICE A DAY Oral for 30 Active traZODone HCl 50 MG TAKE ONE TABLET BY M OUTH EVERY DAY AT BEDTIME NEEDED Oral for 30 Active LORazepam 0.5 MG (Schedule IV Drug) T ML ONE TABLET BY MOUTH TWICE A DAY NEEDED Oral for 30 Active Magnesium 200 MG Oral for 30 A ctive Vitamin K Active Vitamin D 125 MCG (5000 UT) TAKE ONE CAPSULE BY MOUTH EVERY DAY Oral for 30 Active Trulicity 1.5 MG/0.5ML Subcutaneous for 28 Days Active Fiber - as directed Orally A ctive Vitamin B12 1000 MCG 1 tablet Orally Onc e a day for 30 day(s) Active Itylnpgsty-DQKS-Lkksypdz 50-300-40 MG TAKE ONE CAPSULE BY MOUTH EVERY 8 HOURS NEEDED FOR PAIN Oral for 3 Active traMADol HCl 50 MG Oral for 7 [...] (Standard) Question Answer Notes Tobacco use: Nonsmoker Vital Signs Temperature 97.7 degrees Fahrenheit 03/22/20 24 Blood pressure systolic 136 mm Hg 03/22/20 24 Blood pressure diastolic 86 mm Hg 024 Height 59.5 in 03/22/2024 Weight 171 lbs 03/22/2024 BMI 33.96 kg/m2 03/22/2024 Encounters Encounter Location Date Provider Diagnosis [facility] [address] [place] [address] 03/22/2024 Shaina Laureano Encounter for gynecological examination [...] AND SBE'S WERE RECOMMENDED. Plan Of Treatment Treatment Notes Assessment Notes Encounter for gynecological examination (general) (routine) without abnormal findings NO PAP TEST, DUE IN 2025. Encounter for screening mamm ogram for malignant neoplasm of breast REGULAR MAMMOGRAMS AND SBE'S WERE RECOMMENDED. Pending Test Test Name Order Date MM Digital Mammo Screening 03/22/2024 Next Appt Details Follow Up: 1 Year, Reason: Provider Name:Shaina alegria, 03/28/2025 08:00:00 AM, [address], [address], [place], [address], Progress Notes * LING PRESLEYDOB: [birth year] (54 yo F)Acc No.[id number]:03/22/2024 PROGRESS NOTES Patient:?LING PRESLEY Appointment Provider:?Shaina alegria M.D. :1970???Age:54 Y???Sex:Female D ate:03/22/2024 Address:[address] [place] [address] [id number] Pcp:BINH ALLISON M.D. Subjective: * Chief Complaints: * ???Annual PROFESSOR OF ENGLISH PhysicalAnnual PROFESSOR OF ENGLISH Physical 50-59* * HPI: ???New/Follow-up Patient Consult:? PATRICIA UNDERWENT SUBTOTAL HYSTERECTOMY FOR PLACENTA ACCRETA IN 1999.? SHE IS AND NOT SEXUALLY ACTIVE.?? SHE UNDERWENT BILATERAL BREAST REDUCTION AND [place]BDOMINOPLASTY IN 2021 IN [place] AND SUFFERED SEPTIC SHOCK. HER LAST MAMMOGRAM DONE IN AUG 2023 SHOWED BREASTS ARE NOT DENSE AND WAS NORMAL. HER LAST PAP TEST IN 2022 WAS NEGATIVE AND HPV NEGATIVE. SHE HAD A COLONOSCOPY DONE IN 2023. PFIZER X 2. ???Annual:? Patient presents for annual exam, ages 50-59. ?General Health Maintenance:?Current breast complaints:?no breast pain, mass, discharge, or skin changes ?Urinary problems:?patient reports no urinary health problems or bowel health problems ?Calcium intake:?takes adequate calcium via diet and supplementation ?Significant PROFESSOR OF ENGLISH problems:?no significant pattern technician symptoms or problems * ROS:?general:?no?chest pain.?no?palpitations.?no?headache.?no?cough.?no?shortness of breath.?no?fever.?no?unexplained weight loss.?no?nausea/vomiting.?no?change in bowel movements.?no blood in stool.?no?genitourinary complaints.?no?skin complaints.? * Medical History:? * Supervisor Dials History:?/ Para?4/3.?Sexual activity?not currently sexually active.?Last Pap Smear:?03/15/23 NIL, NEG HPV, 03/04/21 ASCUS, NEG HRHPV, 12/13/17 NIL, NEG HRHPV.?Mammogram:?08/28/23 < 50% density, 07/25/21 < 50% density, 06/05/20 < 50% density, 02/23/19 < 50% density, 01/27/2018 normal, 09/2016, normal.?Abnormal Pap Smear:?ASCUS.?LMP and menses?Hysterectomy.?Colonoscopy?11/2023 Q 5 Years.? * OB History:?Total pregnancies?4.?Total living children?3.?NVD?3.?(s)?1.? * Surgical History:?Head Surge ry 06/1991Lung Surgery 06/1991Hysterectomy 05/2000Bariactric and Oral Surgery Tummy Tuck/Breast Lift 07/21/22Septic Shock Emergency Surgery 08/2022 * Hospitalization/Major Diagno stic Procedure:?3 Vaginal Deliveries See Surgical Hx * Family History:?Mother: aliv e, Depression, Gallbladder Issues.?Father: unknown.? Sister: Gallbladder Disease Sister: Gallbladder Disease. * Social History:?Tobacco Use:?Tobacco Control (Standard)?Tobacco use:?Nonsmoker ???Sexual History:?Sexual History?Had sex in the past 12 months (vaginal, oral, or anal)??No ?Details of Sexual History?Are you sexually active??No ???Drugs/Alcohol:?Drugs?Have you used drugs other than those for medical reasons in the past 12 months??No ???Miscellaneous:?Children: yes. ?Exercise: yes, active on weekends. ?Home smoke detector use: yes. ?Marital status: single, . ?Natural support system: yes. ?Occupation: [employer] , Works full-time. ?Sexually active: no. ???Drug/Alcohol:?AUDIT-C (Standard)?Did you have a drink containing alcohol in the past year??No ?Points?0 ?Interpretation?Negative * Medications:?TakingVitamin K Vitamin D 125 MCG (5000 UT) Capsule TAKE ONE CAPSULE BY MOUTH EVERY DAY Oral Trulicity 1.5 MG/0.5ML Solution Pen-injector Subcutaneous Fiber - Tablet as directed Orally Vitamin B12 1000 MCG Tablet Extended Release 1 tablet Orally Once a day Multi-Vitamin - Tablet 1 tablet Orally Once a day FLUoxetine HCl 20 MG Capsule TAKE ONE CAPSULE BY MOUTH TWICE A DAY Oral traZODone HCl 50 MG Tablet TAKE ONE TABLET BY MOUTH EVERY DAY AT BEDTIME NEEDED Oral LORazepam 0.5 MG Tablet (Schedule IV Drug) TAKE ONE TABLET BY MOUTH TWICE A DAY NEEDED Oral Magnesium 200 MG Tablet Oral traMADol HCl 50 MG Tablet Oral Qlscvaufjb-WDGE-Gcwvruii 50-300-40 MG Capsule TAKE ONE CAPSULE BY MOUTH EVERY 8 HOURS NEEDED FOR PAIN Oral Taking Vitamin K Taking Vitamin D 125 MCG (5000 UT) Capsule TAKE ONE CAPSULE BY MOUTH EVERY DAY Oral Taking Trulicity 1.5 MG/0.5ML Solution Pen-injector Subcutaneous Taking Fiber - Tablet as directed Orally Taking Vitamin B12 1000 MCG Tablet Extended Release 1 tablet Orally Once a day Taking Multi-Vitamin - Tablet 1 tablet Orally Once a day Taking FLUoxetine HCl 20 MG Capsule TAKE ONE CAPSULE BY MOUTH TWICE A DAY Oral Taking traZODone HCl 50 MG Tablet TAKE ONE TABLET BY MOUTH EVERY DAY AT BEDTIME NEEDED Oral Taking LORazepam 0.5 MG Tablet (Schedule IV Drug) TAKE ONE TABLET BY MOUTH TWICE A DAY NEEDED Oral Taking Magnesium 200 MG Tablet Oral Taking traMADol HCl 50 MG Tablet Oral Taking Blgtfiskux-YNVB-Dpeuifxg 50-300-40 MG Capsule TAKE ONE CAPSULE BY MOUTH EVERY 8 HOURS NEEDED FOR PAIN Oral DiscontinuedEC-Naproxen 500 MG Tablet Delayed Release TAKE ONE TABLET BY MOUTH TWICE A DAY NEEDED FOR PAIN Oral Medication List reviewed and reconciled with the patientDiscontinued EC-Naproxen 500 MG Tablet Delayed Release TAKE ONE TABLET BY MOUTH TWICE A DAY NEEDED FOR PAIN Oral Medication List reviewed and reconciled with the patient * Allergies:?Lisinopril: Nasal Drip - Side Effectsno[Allergies Verified] Objective: * Vitals:?Ht: 59.5 in, Wt:171l bs, BMI:33.96Index, BP:136/86mm Hg, Temp:97.7F. * Examination: ???General Exam: ?CONSTITUTIONAL:?General Appearance:?alert, in no acute distress, normal, well nourished ?NECK/THYROID:?Inspection/Palpation:?normal ?Thyroid:?normal size and shape ?RESPIRATORY:?Auscultation: clear to auscultation bilaterally, Respiratory Effort: normal.?CARDIOVASCULAR:?Auscultation: regular rate and rhythm.?BREAST, Right:?Inspection/Palpation:?no discharge, no masses present, no nipple retraction, no skin changes, no skin dimpling, no tenderness, no lymphadenopathy, no axillary mass, no axillary tenderness ?BREAST, Left:?Inspection/Palpation:?no discharge, no masses present, no nipple retraction, no skin changes, no skin dimpling, no tenderness, no lymphadenopathy, no axillary mass, no axillary tenderness ?GASTROINTESTINAL:?Abdomen:?no masses, nontender, nondistended ?Liver and Spleen:?normal ?Hernias:?no hernias present, no inguinal adenopathy ?MUSCULOSKELETAL:?Inspection/Palpation:?no clubbing, cyanosis, or edema ?SKIN:?Skin:?normal ?NEURO/PSYCH:?Orientation:?time , place, person ?Mood/Affect:?normal?Genitourinary: ?EXTERNAL GENITALIA:?External Genitalia:?normal, no lesions ?VAGINA:?Vagina:?normal appearance, no abnormal discharge, no lesions ?BLADDER:?Bladder:?no mass, nontender ?URETHRA:?Urethra:?no erythema or lesions present ?CERVIX:?Cervix:?no lesions, nontender ?UTERUS:?Uterus:?surgically absent ?ADNEXA:?Adnexa:?no masses, no tenderness ?ANUS AND PERINEUM:?Anus/Perineum:?visually normal??? Assessment: * Assessment: 1.?Encounter for gynecologic al examination (general) (routine) without abnormal findings - Z01.419???2.?Encounter for screening mammogram for malignant neoplasm of breast - Z12.31??? Plan: * Treatment: ? Value Reference Range ?PH 5.0 * ?PROTEIN Neg * ?GLUCOSE Neg * ?BLOOD Trace * D.JAS 03/22/2024 08:17:50 AM EDT > Hx of Hematuria Notes: NO PAP TEST, DUE IN 2025.??2.?Encounter for screening mammogram for malignant neoplasm of breast?Imaging: MM Digital Mammo Screening Notes: REGULAR MAMMOGRAMS AND SBE'S WERE RECOMMENDED.?? * Procedure Codes:? * Preventive Medicine:? ??YOUR PREVENTIVE WELLNESS PLAN:?Osteoporosis prevention?Calcium, D, strength training.?Breast Cancer Screening (Mammogram):?annually.?Cervical Cancer Screening (Pap Smear):?q 3 years with HPV screen.?Colorectal Cancer Screening:?q 10 years.? * Follow Up:?1 Year * Images: Billing Information: * Visit Code:? [id number] Preventive Care New Pt. Age 40-64. [id number] Preventive Care Est Pt. Age 40-64. * Procedure Codes:? * Sign off status: Completed true * Appointment Provider:?Shaina Laureano M.D. Date:?03/22/2024 Generated for Kris vincent/Олег/eTransmitting on:?11/14/2024 01:10 PM EDT History and Physical Notes * HPI (History of Present Illness) Category Sub-Category Detail Notes Category Not es New/Follow-up Patient Consult PATRICIA UNDERWENT SUBTOTAL HYSTERECTOMY FOR PLACENTA ACCRETA IN 1999. SHE IS AND NOT SEXUALLY ACTIVE. SHE UNDERWENT BILATERAL BREAST REDUCTION AND ABDOMINOPLASTY IN 2021 IN [place] AND SUFFERED SEPTIC SHOCK. HER LAST MAMMOGRAM DONE IN AUG 2023 SHOWED BREASTS ARE NOT DENSE AND WAS NORMAL. HER LAST PAP TEST IN 2022 WAS NEGATIVE AND HPV NEGATIVE. SHE HAD A COLONOSCOPY DONE IN 2023. PFIZER X 2. Annual General Health Maintenance: Current breast complaints:: no breast pain, mass, discharge, or skin changes Urinary problems:: patient r eports no urinary health problems or bowel health problems Calcium intake:: takes adequ ate calcium via diet and supplementation Significant PROFESSOR OF ENGLISH problems:: n o significant pattern technician symptoms or problems Examination Category Sub-Category Detail Notes Category Not es General Exam CONSTITUTIONAL: General Appearan ce:: alert, in no acute distress, normal, well nourished NECK/THYROID: Thyroid:: normal size and shape Inspection/Palpation:: normal RESPIRATORY: Auscultation: clear to auscultation bilaterally, Respiratory Effort: normal CARDIOVASCULAR: Auscultation: regula r rate and rhythm GASTROINTESTINAL: Hernias:: no hernias present, no inguinal adenopathy Liver and Spleen:: normal Abdomen:: no masses, nontender, nondiste nded MUSCULOSKELETAL: Inspection/Palpation:: no clubb ing, cyanosis, or edema SKIN: Skin:: normal NEURO/PSYCH: Mood/Affect:: normal Orientation:: time , place, person BREAST, Right: Inspection/Palpation :: no discharge, no masses present, no nipple retraction, no skin changes, no skin dimpling, no tenderness, no lymphadenopathy, no axillary mass, no axillary tenderness BREAST, Left: Inspection/Palpation :: no discharge, no masses present, no nipple retraction, no skin changes, no skin dimpling, no tenderness, no lymphadenopathy, no axillary mass, no axillary tenderness Genitourinary EXTERNAL GENITALIA: External Genitalia:: nor mal, no lesions VAGINA: Vagina:: normal appearance, no a bnormal discharge, no lesions BLADDER: Bladder:: no mass, nontender URETHRA: Urethra:: no erythema or lesions present CERVIX: Cervix:: no lesions, nontender UTERUS: Uterus:: surgically absent ADNEXA: Adnexa:: no masses, no tendernes s ANUS AND PERINEUM: Anus/Perineum:: visually norm al
== END 2024-11-14 11:58 | disposition home or self-care (01) ==
LOC: HO.HMCH 10:57
PROVIDERS: PCP Internal Medicine; Visit Provider Internal Medicine
DX: Z00.00 Encounter for general adult medical examination without abnormal findings (principal); E11.65 Type 2 diabetes mellitus with hyperglycemia; E66.9 Obesity, unspecified; Z68.32 Body mass index [BMI] 32.0-32.9, adult; I10 Essential (primary) hypertension; E78.00 Pure hypercholesterolemia, unspecified; F41.1 Generalized anxiety disorder

== ENCOUNTER 2024-11-14 10:56 | Outpatient (REF) | payer OTHER, SELFPAY ==
[2024-11-15 08:32] LABS: HBS Num1 0.94 mIU/mL (0-7.99); HBc Num1 0.07 S/CO (0.00-0.79); HBsAGNum1 0.26 S/CO (0.00-0.99); Hepatitis B Core Antibody Nonreactive (Nonreactive); Hepatitis B Surface Antigen Negative (Negative); ~HepC Num1 0.12 S/CO (0.00-0.79); ~Hepatitis B Surface Antibody NONREACTIVE (Nonreactive); ~Hepatitis C Antibody Nonreactive (Nonreactive)
[2024-11-15 22:13] LABS: Rubella IgG Antibody 4.14 Index
[2024-11-16 03:33] LABS: Mumps Virus IgG Antibody >300.00 AU/mL
== END 2024-11-14 10:57 | disposition home or self-care (01) ==
LOC: HO.LAB 10:56
PROVIDERS: PCP Internal Medicine; Visit Provider Internal Medicine
DX: Z00.00 Encounter for general adult medical examination without abnormal findings (principal); E11.65 Type 2 diabetes mellitus with hyperglycemia; I10 Essential (primary) hypertension; E78.00 Pure hypercholesterolemia, unspecified; F41.1 Generalized anxiety disorder; E66.9 Obesity, unspecified; Z02.0 Encounter for examination for admission to educational institution; R79.89 Other specified abnormal findings of blood chemistry
CPT/HCPCS: 36415; 86704; 86706; 86735; 86762; 86765; 86787; 86803; 87340; 99396

== ENCOUNTER 2024-11-24 09:50 | Outpatient (AMB) | payer OTHER, SELFPAY ==
--- NOTE | 2024-11-24 10:03 | MHC.OFFVIS ---
Vital Signs 11/24/24 10:14 Height 4 ft 11 in Weight 162 lb BMI 32.7 BP 106/62 Blood Pressure Location Rt brachial Position Sitting Pulse 84 Pulse Source Pulse Oximeter Pulse Oximetry (%) 97 Oxygen Delivery Method Room Air Intake Visit Reasons: 4 month follow up Intake Note: ESTABLISHED PATIENT for mgmt of GERD and constipation Chief Complaint; Pt reports that she is doing very well with her current regimen, however; she reports that her fiber PRN is not effective anymore and would like a recommendation on a replacement. 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 Patient is feeling better she can continue taking senna as ordered by her PCP or she can take 1-2 Dulcolax tablets if no BM. Increase fluid intake and activity to promote better bowel motility. Avoid dietary triggers. Occasional postprandial abdominal bloating most likely related to the food that she eats. Avoid food that is gassy like beans, onions. Follow-up in 6 months. Patient will call if she will have any GI concerning symptoms. Patient is agreeable to current plan of care and verbalizes understanding of instructions. She was given the opportunity to ask questions and all questions answered ? TODAY'S VISIT Patient is here today for follow-up. Patient reports that she has been doing fairly well since last visit. Patient started weight loss journey with terzepatide. Patient reports that she has been tolerating it well. Patient is currently using fiber but would like to learn if there is any particular fiber that it is better that she could use. Moves her bowels better takes Senokot is needed. Denies melena, hematochezia, unintentional weight loss or ribbon like stools. Denies any dyspepsia, dysphagia or odynophagia. Patient denies any other GI concerning symptoms. 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 Mother Depression Anxiety Asthma Diabetes Hypertension Brother Bipolar 1 disorder Sister No problems noted. Sister No problems noted. Sister No problems noted. Son No problems noted. Son No problems noted. Daughter No problems noted. Maternal Grandmother Lymphoma CVA (cerebral vascular accident) Maternal Grandfather Oral cancer Other FH: mental illness Substance use Social History Household Members: Children Housing: House Do you presently have visiting nurse or other home services: No Alcohol intake: current Alcohol intake frequency: holidays/special occasions only Comment: social once a month 1 glass Patient Tobacco Use Status: Never used Tobacco e-Cigarette/Vaping Use: Never Used Second Hand Smoke Exposure: No Advance Directives Date on File: 08/16/22 service: No Current occupational status: employed Current occupational exposures/hazards: No Cognitive needs: No Hearing needs: No Vision needs: Yes (Glasses) Review of Systems Const Denies weight gain and Denies weight loss ENT Reports no additional complaints, Denies dysphagia and Denies odynophagia Card Reports no additional complaints Resp Reports no additional complaints GI Denies abdominal pain, Denies belching, Denies melena, Denies bloating, Denies change in bowel habits, Reports constipation (occasional), Denies dysphagia, Denies excessive flatus, Denies dyspepsia, Reports heartburn (Improved), Denies diarrhea, Denies loose stools, Denies nausea, Denies odynophagia and Denies vomiting Reports no additional complaints Musc Reports no additional complaints Neuro Reports no additional complaints Psych Reports no additional complaints Endo Reports no additional complaints Physical Exam Vital Signs: Last Vital Signs Pulse 84 11/24/24 10:14 BP 106/62 11/24/24 10:14 Pulse Ox 97 11/24/24 10:14 Oxygen Delivery Method Room Air 11/24/24 10:14 BMI result Body Mass Index 32.7 Const General: healthy appearing and no acute distress Nutritional Appearance: obese Orientation/consciousness: patient oriented x3 Resp Effort & Inspection: normal respiratory effort, able to speak in complete sentences, no tracheal deviation and symmetric chest movement Auscultation: clear to auscultation bilaterally Cardio Rate: regular rate GI Inspection: Yes normal to inspection, No distended and Yes obesity Palpation (GI): Soft to palpation, not firm, nontender and No hepatosplenomegaly present Auscultation: normal bowel sounds General: Yes no CVA tenderness Back/Spine/Pelvis Back: no CVA tenderness Skin General skin exam: elasticity normal, turgor normal and dry skin Neuro General: patient oriented x3 Psych Appearance: grossly normal Mental Status: mental status grossly normal Assessment & Plan Assessment & Plan (1) GERD (gastroesophageal reflux disease): Code(s): K21.9 - Gastro-esophageal reflux disease without esophagitis Category: Medical Qualifiers: Esophagitis presence: esophagitis presence not specified Qualified Code(s): K21.9 - Gastro-esophageal reflux disease without esophagitis (2) Constipation: Code(s): K59.00 - Constipation, unspecified Category: Medical Qualifiers: Constipation type: chronic idiopathic constipation Qualified Code(s): K59.04 - Chronic idiopathic constipation (3) Lower abdominal pain: Code(s): R10.30 - Lower abdominal pain, unspecified Category: Medical Plan Continue Nexium daily. Avoid dietary triggers in late night snacking. Patient was encouraged to eat small meals and more often. Patient reports that she has been doing well. She is excited about slowly losing weight. Patient is very excited about upcoming trip. Patient will continue taking opra-pld-hhuqjbb laxative as needed. However patient was encouraged to take fiber with pre and probiotic. Increase fluid intake and activity to promote better bowel motility. Patient will follow-up in 6 months, sooner on as needed basis. She is agreeable to this plan and verbalizes understanding of instructions. She was given the opportunity to ask questions and all questions answered. Thank you for allowing me to participate in her care Coding Level of Care Code Est Pt Level 3 (04444) Diagnoses Gastroesophageal reflux disease, unspecified whether esophagitis present K21.9 Esophagitis presence: esophagitis presence not specified Chronic idiopathic constipation K59.04 Constipation type: chronic idiopathic constipation Lower abdominal pain R10.30 Time Spent (min) 25 Comment 15 minutes spent with patient and additional 10 minutes spent reviewing her records
[2024-11-24 10:14] VITALS: BP 106/62; PULSE 84; O2SAT 97; BMI 32.7
--- OUTSIDE RECORDS SUMMARY | 2024-11-24 10:28 | XMS_ITS ---
Author Organization [facility] Address [address] [place] [address] Care Team Providers Care Risk Developer Name Role Phone BINH ALLISON M.D. Primary Care Provider Shaina Go [phone] REASON FOR VISIT ORDER FOR BILAT BREAST ULTRA Encounters Encounter Location Date Provider Diagnosis [facility] [address] [place] [address] 06/17/2023 Shaina Laureano Plan Of Treatment Next Appt Details Provider Name:Shaina alegria, 03/28/2025 08:00:00 AM, [address] [facility], [address], [place], [address], Progress Notes * LING PRESLEYDOB: 2 (53 yo F)Acc No.[id number]:06/17/2023 Patient:?KONSTANTIN PRESLEYARITA :1970???Age:53 Y???Sex:Female Address:[address] [place] [address], [address] * true * Date:? Generated for Printi ng/Favenug/eTransmitting on:?11/24/2024 10:27 AM EDT
--- OUTSIDE RECORDS SUMMARY | 2024-11-24 10:28 | XMS_ITS | Patient Health Record ---
Author Organization [facility] Address [address] [place] [address] [address] [place] [address] Care Team Providers Care Plumber Name Role Phone BINH ALLISON M.D. Primary Care Provider Shaina Go Unavailable [phone] Allergies Allergen (clinical drug ingredient) Drug/Non Drug [...] MOUTH EVERY DAY Oral for 30 Active Pztkppffve-KLBZ-Wgvhdlpc 50-300-40 MG TAKE ONE CAPSULE BY MOUTH [...] Status Risk Notes Problem Postmenopausal atrophic vaginitis (36681353) Postmenopausal atrophic vaginitis (N95.2) Active confirmed Problem Gynecological examination normal (921939899424092) Encounter for gynecological examination (general) (routine) without abnormal findings (Z01.419) Active confirmed Problem Morbid obesity (disorder) (048320871) Morbid (severe) obesity due to excess calories (E66.01) Active confirmed Problem Menopause (592367694) Menopausal and female climacteric states (N95.1) Active confirmed Vital Signs Temperature 97.7 degrees Fahrenheit 03/22/2024 Blood pressure diastolic 86 mm Hg 03/22/2024 Height 59.5 in 03/22/2024 Blood pressure systolic 136 mm Hg 03/22/2024 Weight 171 lbs 03/22/2024 BMI 33.96 kg/m2 03/22/2024 Encounters Encounter Location Date Provider Diagnosis [address] [place] [address] 03/22/2024 Shaina Laureano Encounter for gynecological examination [...] Provider Name:Shaina alegria, 03/28/2025 08:00:00 AM, [address], [address], [place], [address], Medical (General) History Medical History History ICD [...]
--- OUTSIDE RECORDS SUMMARY | 2024-11-24 10:28 | XMS_ITS ---
Author Organization [employer] [facility] Address [address] [place] [address] Care Team Providers Care Heel Stainer Name Role Phone BINH ALLISON M.D. Primary Care Provider Shaina Go Unavailable [phone] Allergies Allergen (clinical drug ingredient) Drug/Non Drug Allergy documented on EMR Reaction Allergy Type Onset Date Status lisinopril Lisinopril Nasal Drip Drug Allergy Acti ve Results Component Value Reference Range Notes Urinalysis Reviewed date:03/22/2024 08:50:07 AM Interpretation: Performing Lab: Notes/Report: PH 5.0 PROTEIN Neg GLUCOSE Neg BLOOD Trace REASON FOR VISIT Annual DIRECTOR OF RESOURCE DEVELOPMENT Physical, Annual DIRECTOR OF RESOURCE DEVELOPMENT Physical 50-59* Medications Medication SIG (Take, Route, [...] e a day for 30 day(s) Active Suhzwedhqf-MEMX-Usejxswi 50-300-40 MG TAKE ONE CAPSULE BY MOUTH [...] 03/22/2024 Encounters Encounter Location Date Provider Diagnosis [facility] [address] [place] [address] 03/22/2024 Shaina Laureano Encounter for gynecological examination [...] Provider Name:Shaina alegria, 03/28/2025 08:00:00 AM, [address], [address], [place], [address], Progress Notes * LING PRESLEYDOB: [birth year] (54 yo F)Acc No.[id number]:03/22/2024 PROGRESS NOTES Patient:?LING PRESLEY Appointment Provider:?Shaina alegria M.D. :1970???Age:54 Y???Sex:Female D ate:03/22/2024 Address:[address] [place] [address] [id number] Pcp:BINH ALLISON M.D. Subjective: * Chief Complaints: * ???Annual DIRECTOR OF RESOURCE DEVELOPMENT PhysicalAnnual DIRECTOR OF RESOURCE DEVELOPMENT Physical 50-59* * HPI: ???New/Follow-up Patient Consult:? PATRICIA UNDERWENT SUBTOTAL HYSTERECTOMY FOR PLACENTA ACCRETA IN 1999.? SHE IS AND NOT SEXUALLY ACTIVE.?? SHE UNDERWENT BILATERAL BREAST REDUCTION AND ABDOMINOPLASTY IN 2021 IN [place] AND SUFFERED SEPTIC SHOCK. 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 * Medical History:? 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 ?Natural support system: yes. 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 ?Sexually active: no. ???Drug/Alcohol:?AUDIT-C [...] Oral traMADol HCl 50 MG Tablet Oral Nxvjszyhpb-WFII-Zabfbecj 50-300-40 MG Capsule TAKE ONE CAPSULE BY [...] traMADol HCl 50 MG Tablet Oral Taking Bolyjxhbps-KBTG-Qnaczfhf 50-300-40 MG Capsule TAKE ONE CAPSULE BY [...] * Images: Billing Information: * Visit Code:? 32246 Preventive Care New Pt. Age 40-64. 47564 Preventive Care Est Pt. Age 40-64. * Procedure Codes:? * Sign off status: Completed true * Appointment Provider:?Shaina Laureano M.D. Date:?03/22/2024 Generated for Kris vincent/Олег/eTransmitting on:?11/24/2024 10:27 AM EDT History and Physical Notes * HPI (History of Present Illness) Category Sub-Category Detail Notes Category Not es New/Follow-up Patient Consult PATRICIA UNDERWENT SUBTOTAL HYSTERECTOMY FOR PLACENTA ACCRETA IN 1999. SHE IS AND NOT SEXUALLY ACTIVE. SHE UNDERWENT BILATERAL BREAST REDUCTION AND ABDOMINOPLASTY IN 2021 IN [place] AND SUFFERED SEPTIC SHOCK. HER LAST MAMMOGRAM [...] ate calcium via diet and supplementation Significant DIRECTOR OF RESOURCE DEVELOPMENT problems:: n o significant keymodule assembly machine tender symptoms or problems Examination Category Sub-Category Detail [...]
== END 2024-11-24 10:28 | disposition home or self-care (01) ==
LOC: HO.HGI 09:51
PROVIDERS: PCP Internal Medicine; Visit Provider Nurse Practitioner Family
DX: K21.9 Gastro-esophageal reflux disease without esophagitis (principal); K59.04 Chronic idiopathic constipation; R10.30 Lower abdominal pain, unspecified
CPT/HCPCS: 99213

== ENCOUNTER → 2024-11-24 09:50 | Outpatient (BNVA) | payer OTHER, SELFPAY | PROVIDERS: PCP Internal Medicine; Visit Provider Nurse Practitioner Family | DX: K21.9 Gastro-esophageal reflux disease without esophagitis (principal); K59.04 Chronic idiopathic constipation; R10.30 Lower abdominal pain, unspecified | CPT/HCPCS: 99212 ==

== ENCOUNTER 2025-01-26 08:20 | Outpatient (REF) | payer OTHER, SELFPAY ==
--- OUTSIDE RECORDS SUMMARY | 2025-01-26 08:28 | XMS_ITS | Patient Health Record ---
Author Organization [facility] Address [address] [place] [address] [address] [place] [address] Care Team Providers Care Water Superintendent Name Role Phone BINH ALLISON M.D. Primary Care Provider Shaina Go Unavailable [phone] Allergies Allergen (clinical drug ingredient) Drug/Non Drug [...] AT BEDTIME NEEDED Oral for 30 Active Fluconazole 150 MG 1 tablet Orally 1 ta blet now and then every 3 days as needed for symptoms for 10 days 12/26/2024 Active Terconazole 0.8 % 1 applicatorful at b edtime Vaginal Once a night before bed for 3 days 12/26/2024 Active Vitamin D 125 MCG (5000 UT) TAKE ONE CAPSULE BY MOUTH EVERY DAY Oral for 30 Active Sltjsjmdcl-HWWW-Hlsmjqcy 50-300-40 MG TAKE ONE CAPSULE BY MOUTH [...] Status Risk Notes Problem Postmenopausal atrophic vaginitis (04326690) Postmenopausal atrophic vaginitis (N95.2) Active confirmed Problem Gynecological examination normal (354600926110807) Encounter for gynecological examination (general) (routine) without abnormal findings (Z01.419) Active confirmed Problem Morbid obesity (disorder) (924192567) Morbid (severe) obesity due to excess calories (E66.01) Active confirmed Problem Menopause (573786776) Menopausal and female climacteric states (N95.1) Active confirmed Vital Signs Temperature 97.7 degrees Fahrenheit 03/22/2024 Blood pressure diastolic 86 mm Hg 03/22/2024 Height 59.5 in 03/22/2024 Blood pressure systolic 136 mm Hg 03/22/2024 Weight 171 lbs 03/22/2024 BMI 33.96 kg/m2 03/22/2024 Encounters Encounter Location Date Provider Diagnosis [facility] [address] [place] [address] 03/22/2024 Shaina Laureano Encounter for gynecological examination (general) (routine) without abnormal findings Z01.419 and Encounter for screening mammogram for malignant neoplasm of breast Z12.31 [facility] [address] [place] [address] 12/25/2024 Shaina Laureano Assessments Encounter Date Diagnosis (ICD Code) Assessment [...] W/TRANSVAGINAL 020 Next Appt Details Provider Name:Shaina Grimaldo raji, 03/28/2025 08:00:00 AM, [address], [address], [place], [address], Medical (General) History Medical History History ICD [...]
[2025-01-26 08:33] LABS: MANUAL DIFF FLAG NO
[2025-01-26 08:47] LABS: Basophils Percent Auto 0.8 % (0-2); Eosinophils Absolute Auto 0.1 X10*3/uL (0.0-0.4); Hematocrit 41.8 % (37.0-47.0); Hemoglobin 13.9 g/dl (12.0-16.0); Imm Gran Abs Auto 0.01 X10*3/uL (0.00-0.03); Imm Gran Pct Auto 0.2 % (0.0-0.4); Immature Retic Fraction 4.5 % (3.0-15.9); Lymphocytes Absolute Auto 1.3 X10*3/uL (1.2-4.9); Lymphocytes Percent Auto 25.9 % (20-40); Mean Corpuscular HGB Conc 33.3 g/dl (31.0-35.0); Mean Corpuscular Volume 81.2 fL (80.0-98.0); Mean Platelet Volume 11.1 fL (9.4-12.3); Monocytes Absolute Auto 0.4 X10*3/uL (0.1-1.2); Monocytes Percent Auto 7.1 % (2-11); Neutrophils Absolute Auto 3.3 x10*3/uL (2.0-8.3); Platelet Count 249 X10*3/uL (160-400); Red Blood Count 5.15 X10*6/uL (4.20-5.50); Red Cell Distribution Width 13.3 % (11.0-16.0); Retic HGB Equivalent 30.6 pg (30.0-35.0); Reticulocyte Percent 1.2 % (0.5-1.8); White Blood Count 5.1 X10*3/uL (4.8-10.8)
[2025-01-26 09:22] LABS: Alanine Aminotransferase 13 U/L (0-31); Albumin Level 4.2 g/dL (3.5-5.0); Alkaline Phosphatase 62 U/L (39-117); Anion Gap 10 (12-20); Aspartate Amino Transferase 18 U/L (5-31); Bilirubin Total 0.6 mg/dL (0.0-1.0); Blood Urea Nitrogen 14 mg/dL (9-16); Calcium 9.1 mg/dL (8.4-10.2); Carbon Dioxide 27 mmol/L (22-29); Chloride 108 mmol/L (96-108); Cholesterol 209 mg/dL (<200); Estimated Glomerular Filt Rate 59; Glucose Random 84 mg/dL (60-115); HDL Cholesterol 60 mg/dL (>40); Iron 105 mcg/dL (30-160); LDL Cholesterol Calculated 124 mg/dL (<100); Percent Iron Saturation 35 % (15-50); Sodium 141 mmol/L (135-145); Total Iron Binding Capacity 302 mcg/dL (228-428); Total Protein 7.2 g/dL (6.5-8.0); Triglycerides 126 mg/dL (<150); Unsaturated Iron Binding 197 ug/dL
[2025-01-26 09:40] LABS: Ferritin 29 ng/mL (10-250); Free T4 (Free Thyroxine) 1.05 ng/dL (0.71-1.85); Thyroid Stimulating Hormone 1.12 uIU/mL (0.32-4.0)
[2025-01-26 09:44] LABS: Folate 4.1 ng/mL (> or = 4.0); Vitamin B12 603 pg/mL (200-900)
== END 2025-01-26 08:21 | disposition home or self-care (01) ==
LOC: HO.LAB 08:20
PROVIDERS: PCP Internal Medicine; Visit Provider Internal Medicine
DX: E78.00 Pure hypercholesterolemia, unspecified (principal); D64.9 Anemia, unspecified
CPT/HCPCS: 36415; 80053; 80061; 82607; 82728; 82746; 83540; 84439; 84443; 85025; 85045

== ENCOUNTER 2025-03-08 08:19 | Outpatient (AMB) | payer OTHER, SELFPAY ==
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
[2025-03-08 08:25] VITALS: BP 138/88; PULSE 98; RESP 18; TEMP 36.2; O2SAT 95
--- OUTSIDE RECORDS SUMMARY | 2025-03-08 08:34 | XMS_ITS | Patient Health Record ---
Author Organization [employer] [facility] Address [address] [place] [address] [address] [place] [address] Care Team Providers Care Tray Delivery Aide Name Role Phone BINH ALLISON M.D. Primary Care Provider Shaina Go Unavailable [phone] Allergies Allergen (clinical drug ingredient) Drug/Non Drug [...] Multi-Vitamin - 1 tablet Orally Once a day; Duration: 30 day(s) Active FLUoxetine HCl 20 MG TAKE ONE CAPSULE BY MOUTH TWICE A DAY Oral; Duration: 30 Active Vitamin K Active traZODone HCl 50 MG TAKE ONE TABLET BY M OUTH EVERY DAY AT BEDTIME NEEDED Oral; Duration: 30 Active Fluconazole 150 MG 1 tablet Orally 1 ta blet now and then every 3 days as needed for symptoms; Duration: 10 days 12/26/2024 Active Terconazole 0.8 % 1 applicatorful at b edtime Vaginal Once a night before bed; Duration: 3 days 12/26/2024 Active Vitamin D 125 MCG (5000 UT) TAKE ONE CAPSULE BY MOUTH EVERY DAY Oral; Duration: 30 Active Mrnoupbhye-HHYU-Ipqbctei 50-300-40 MG TAKE ONE CAPSULE BY MOUTH EVERY 8 HOURS NEEDED FOR PAIN Oral; Duration: 3 Active Trulicity 1.5 MG/0.5ML Subcutaneous; Dur ation: 28 Days Active Fiber - as directed Orally A ctive Vitamin B12 1000 MCG 1 tablet Orally Onc e a day; Duration: 30 day(s) Active LORazepam 0.5 MG (Schedule IV Drug) T ML ONE TABLET BY MOUTH TWICE A DAY NEEDED Oral; Duration: 30 Active Magnesium 200 MG Oral; Duration: 30 Active traMADol HCl 50 MG Oral; Duration: 7 Active Social History Tobacco Use: Social [...] Status Risk Notes Problem Postmenopausal atrophic vaginitis ([id number]) Postmenopausal atrophic vaginitis (N95.2) Active confirmed Problem Gynecological examination normal ([id number]) Encounter for gynecological examination (general) (routine) without abnormal findings (Z01.419) Active confirmed Problem Morbid (severe) obesity due to excess calories (E66.01) Active confirmed Problem Menopause ([id number]) Menopausal and female climacteric states (N95.1) Active confirmed Vital Signs Temperature 97.7 degrees Fahrenheit 03/22/2024 Blood pressure diastolic 86 mm Hg 03/22/2024 Height 59.5 in 03/22/2024 Blood pressure systolic 136 mm Hg 03/22/2024 Weight 171 lbs 03/22/2024 BMI 33.96 kg/m2 03/22/2024 Encounters Encounter Location Date Provider Diagnosis [facility] [place] [address] [employer] [address] [address] 03/22/2024 Shaina Laureano Encounter for gynecological examination (general) (routine) without abnormal findings Z01.419 and Encounter for screening mammogram for malignant neoplasm of breast Z12.31 [facility] [place] [address] [employer] [address] [address] 12/25/2024 Shaina Laureano Assessments Encounter Date Diagnosis [...] Name:Shaina Grimaldo raji, 03/28/2025 08:00:00 AM, [email or web address], [address], [place], [address], Medical (General) History Medical History History ICD [...]
--- OUTSIDE RECORDS SUMMARY | 2025-03-08 08:34 | XMS_ITS | Clinical Summary ---
Author Organization [facility] Address [address] [facility] [address] [place] [id number] Phone Care Team Providers Care Back Digger Operator Name Role Phone Unavailable Primary Care Provider Unavailabl e Social History Tobacco Use Types Packs/Day Years Used Date Smoking Tobacco: Never Assessed Education Answer Date Recorded Are you interested in more education? Not on joellen e 12/12/2022 Are you concerned about learning? Not on file 12/12/2022 No 12/12/2022 No 12/12/2022 Digital Access Answer Date Recorded No 01/12/2023 No 01/12/2023 Reliable internet access at home? Not on file 01/12/2023 Device with a working camera? Not on file Comments Unknown Sex and Gender Information Value Date Recorded Sex Assigned at Not on file Legal Sex Female 11:25 AM EST Gender Identity Not on file Sexual Orientation Not on file Plan of Treatment Not on file Medical Devices Not on file Additional Source Comments The information contained in this document represents components of the legal health record. It is not the complete legal health record.[facility]
[2025-03-08 08:43] VITALS: BP 142/90
== END 2025-03-08 08:56 | disposition home or self-care (01) ==
LOC: HO.HMCH 08:19
PROVIDERS: PCP Internal Medicine; Visit Provider Internal Medicine
DX: E11.65 Type 2 diabetes mellitus with hyperglycemia (principal); Z68.30 Body mass index [BMI] 30.0-30.9, adult; E66.9 Obesity, unspecified; Z98.84 Bariatric surgery status; K21.9 Gastro-esophageal reflux disease without esophagitis; K59.04 Chronic idiopathic constipation; E78.00 Pure hypercholesterolemia, unspecified; F41.1 Generalized anxiety disorder

== ENCOUNTER → 2025-03-08 08:19 | Outpatient (BNVA) | payer OTHER, SELFPAY | PROVIDERS: PCP Internal Medicine; Visit Provider Internal Medicine | DX: E66.9 Obesity, unspecified (principal); Z68.30 Body mass index [BMI] 30.0-30.9, adult; E11.65 Type 2 diabetes mellitus with hyperglycemia; K21.9 Gastro-esophageal reflux disease without esophagitis; K59.04 Chronic idiopathic constipation; E78.00 Pure hypercholesterolemia, unspecified; F41.1 Generalized anxiety disorder; Z98.84 Bariatric surgery status; Z13.39 Encounter for screening examination for other mental health and behavioral disorders | CPT/HCPCS: 83036; 99212 ==

== ENCOUNTER 2025-04-30 13:02 | Outpatient (AMB) | payer OTHER, SELFPAY ==
--- OUTSIDE RECORDS SUMMARY | 2025-03-28 04:00 | XMS_ITS ---
Author Organization [facility] Address [email or web address] [address] [address] Care Team Providers Care Fish Frog Or Oyster Farmer Name Role Phone BINH ALLISON M.D. Primary Care Provider Shaina Go Unavailable [phone] Allergies Allergen (clinical drug ingredient) Drug/Non Drug Allergy documented on EMR Reaction Allergy Type Onset Date Status lisinopril Lisinopril Nasal Drip Drug Allergy Acti ve REASON FOR VISIT Annual INTERNAL COMMUNICATIONS SPECIALIST Physical Social History Tobacco Use: Social History Observation [...] (Standard) Question Answer Notes Tobacco use: Nonsmoker Encounters Encounter Location Date Provider Diagnosis [facility] [employer] [address] [address] 03/28/2025 Shaina Laureano Plan Of Treatment Next Appt Details Provider Name:Shaina alegria, 09/18/2025 08:40:00 AM, [email or web address], [address], [place], [address], Progress Notes * LING PRESLEYDOB: [birth year] (55 yo F)Acc No.[id number]:03/28/2025 PROGRESS NOTES Patient: LING SIMPSON Appointment Provider: Emilia Laureano M.D. :1970 A ge:55 Y S ex:Female Date:03/28/2025 Address:[address] [place] [address] [id number] Pcp:BINH ALLISON M.D. Subjective: * Chief Complaints: * 1 . Annual INTERNAL COMMUNICATIONS SPECIALIST Physical. * Medical History: U nspecified ovarian cyst, right side, Migraine without aura, intractable, without status migrainosus, Other recurrent depressive disorders, Calculus of kidney, Morbid (severe) obesity due to excess calories, Atypical squamous cells of undetermined significance on cytologic smear of cervix (ASC-US), Menopausal and female climacteric states, Postmenopausal atrophic vaginitis, Mammographic fibroglandular density, bilateral breasts, Dense breasts, unspecified, Mammographic heterogeneous density, bilateral breasts, Other hypertrophic disorders of the skin. * Community Service Coordinator History: G ravida/ Para 4 /3. S exual activity n ot currently sexually active. L ast Pap Smear: NIL, NEG HPV, 03/04/21 ASCUS, NEG HRHPV, 12/13/17 NIL, NEG HRHPV. M ammogram: 50-75% density, 08/28/23 < 50% density, 07/25/21 < 50% density, 06/05/20 < 50% density, 02/23/19 < 50% density, 01/27/2018 normal, 09/2016, normal.? A bnormal Pap Smear: A SCUS. L MP and menses H ysterectomy. C olonoscopy Q 5 Years. * OB History: T otal pregnancies 4 . T otal living children 3 . N VD 3 . A bortion(s) 1 . * Social History: T obacco Use: T obacco Control (Standard) T obacco use: N onsmoker S exual History: S exual History H ad sex in the past 12 months (vaginal, oral, or anal)? N o Details of Sexual History A re you sexually active? N o D rugs/Alcohol: D rugs H ave you used drugs other than those for medical reasons in the past 12 months? N o M iscellaneous: C hildren: yes. Exercise: yes, active on weekends. Home smoke detector use: yes. Marital status: single, . Natural support system: yes. 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 Sexually active: no. D rug/Alcohol: A NAMITA-C (Standard) D id you have a drink containing alcohol in the past year? N o P oints 0 I nterpretation N egative * Allergies: L isinopril: Nasal Drip - Side Effects. Objective: * Vitals: Assessment: Plan: * Treatment: * Images: Billing Information: * Visit Code: * Procedure Codes: * Electronic signature of Ondina Laureano MD on 04/30/2025 at 06:06 PM EDT Sign off status: Pending * Appointment Provider: Emilia Laureano M.D. Date: 0 03/28/2025 Generated for Kris vincent/Олег/Juju on: 0 04/30/2025 06:06 PM EDT
--- NOTE | 2025-04-30 12:39 | MHC.OFFVISWM ---
VS Expanded 04/30/25 12:41 Height 4 ft 11 in Weight 145 lb BMI 29.3 Intake Visit Reasons: TV PO LSG 05/09/20 Allergies lisinopril (LISINOPRIL) Allergy (Intermediate, Verified 03/08/25 08:30) SWELLING/BLURRY VISION house dust Allergy (Mild, Verified 03/08/25 08:30) Hives Medication List - Last Reconciled 04/30/25 by GARIMA Cartagena bisacodyl 10 mg (2 x 5 mg) PO DAILY cldgqoyuxo-zcdvximxrsvqt-ypqb 50-300-40 mg 1 cap PO Q8H PRN calc-D3-mag cit,ox-K2-herb 353 300 mg-25 mcg- 66 mg-37.5 mcg (Alive Calcium-Vitamin D3-K2) tabs PO [chelated magnesium PO] clotrimazole 1% 1 appl topical BID cyanocobalamin (vitamin B-12) 1,000 mcg PO DAILY fluoxetine 30 mg (3 x 10 mg) PO DAILY 30 days gauze bandage (Kerlix) As directed lorazepam 0.5 mg PO DAILY PRN losartan 25 mg PO DAILY psyllium husk (Fiber (psyllium husk)) 0.4 grams PO BEDTIME PRN Shower Chair As directed simvastatin 5 mg PO BEDTIME tirzepatide (weight loss) 7.5 mg (0.5 mL) subcut QWEEK tramadol 50 mg PO DAILY PRN trazodone 100 mg PO BEDTIME PRN HPI Comments Details: This?is a?55?yo F who is s/p LSG 05/09/2020. Presents for 5 year post op visit. Starting weight in 2019- 229lbs. Weight loss of 22.4lbs since last OV No complaints of nausea, emesis, abdominal pain or reflux, or constipation. Has been on Zepbound for a few months, on 7.5mg with goal of 135lbs. Feels well on it. 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 Regarding upper thighs- pt reports a lot of friction between inner thighs, has to use baby powder. Has to wash and clean inner thighs more frequently to protect skin and preserve its integrity. Cannot wear shorts comfortably, has to wear longer pants to protect skin. Walking is more difficult due to skin rubbing/slapping together with movement. Regarding upper arms- pt reports friction between excess skin of upper arms and torso. Has to wear longer sleeves, cannot wear short sleeves and has to protect torso. Has not been able to find a comfortable bra due to skin getting pinched. Excess skin is somewhat heavy, and worsens shoulder pain/neck pain. Have you been diagnosed with reflux (GERD)? Score 0-5: 0=no symptoms, 1=noticeable but not bothersome (slight or occasional), 2=noticeable, bothersome but not daily, 3=bothersome and daily, 4=affects daily activities, 5=incapacitating, unable to do daily activities How bad is the heartburn: 0 Heartburn when lying down: 0 Heartburn when standing up: 0 Heartburn after meals: 1 Does heartburn change your diet: 3 Does heartburn wake you up from sleep: 0 Do you have difficulty swallowin Do you have pain with swallowin If you take medication for reflux, does this affect your daily life: 0 Total score: 4 PFSH Medical History (Updated 03/08/25 @ 08:40 by Nicole Velazco MD) Lower abdominal pain Colon cancer screening Breast cancer screening by mammogram Seizure GERD (gastroesophageal reflux disease) Cervical cancer screening Breast cancer screening Constipation Essential hypertension PVC (premature ventricular contraction) 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 Mother Depression Anxiety Asthma Diabetes Hypertension Brother Bipolar 1 disorder Sister No problems noted. Sister No problems noted. Sister No problems noted. Son No problems noted. Son No problems noted. Daughter No problems noted. Maternal Grandmother Lymphoma CVA (cerebral vascular accident) Maternal Grandfather Oral cancer Other FH: mental illness Substance use Social History Household Members: Children Housing: House Do you presently have visiting nurse or other home services: No Alcohol intake: current Alcohol intake frequency: holidays/special occasions only Comment: social once a month 1 glass Patient Tobacco Use Status: Never used Tobacco e-Cigarette/Vaping Use: Never Used Second Hand Smoke Exposure: No Advance Directives Date on File: 08/16/22 service: No Current occupational status: employed Current occupational exposures/hazards: No Cognitive needs: No Hearing needs: No Vision needs: Yes (Glasses) Assessment & Plan Assessment & Plan (1) Overweight (BMI 25.0-29.9): Code(s): E66.3 - Overweight Category: Medical (2) Status post laparoscopic sleeve gastrectomy: Comment: April 2020 Code(s): Z98.84 - Bariatric surgery status Category: Surgical (3) Excess skin: Code(s): L98.7 - Excessive and redundant skin and subcutaneous tissue Category: Medical Plan Pt doing well on Zepbound. Had labs ordered by her PCP, will add additional annual labs on to have done next month. She is experiencing issues of excess skin of upper thighs and upper arms. Clotrimazole ointment ordered. RTC 3 months for in person visit for physical exam. Orders: Orders Insulin Today Z98.84 - Bariatric surgery status Complete Blood Count Auto Diff Today Z98.84 - Bariatric surgery status C Reactive Protein Today Z98.84 - Bariatric surgery status TSH reflex Free T4 Today Z98.84 - Bariatric surgery status Vitamin B12 and Folate Today Z98.84 - Bariatric surgery status Vitamin D 25-OH Total Today Z98.84 - Bariatric surgery status Vitamin A Today Z98.84 - Bariatric surgery status Vitamin B1 Today Z98.84 - Bariatric surgery status IRON PROFILE Today Z98.84 - Bariatric surgery status Ferritin Today Z98.84 - Bariatric surgery status Zinc Today Z98.84 - Bariatric surgery status Medications: New clotrimazole 1% 1 appl topical BID 45 grams 3RF
[2025-04-30 12:41] VITALS: BMI 29.3
--- OUTSIDE RECORDS SUMMARY | 2025-04-30 18:06 | XMS_ITS | Clinical Summary ---
Author Organization [facility] Address [address] [facility] [address] [place] [id number] Phone Care Team Providers Care Churn Operator Name Role Phone Unavailable Primary Care [...] It is not the complete legal health record.[facility]
--- OUTSIDE RECORDS SUMMARY | 2025-04-30 18:06 | XMS_ITS | Patient Health Record ---
Author Organization [facility] Address [address] [place] [address] [address] [place] [address] Care Team Providers Care Welcome Center Agent Name Role Phone BINH ALLISON M.D. Primary Care Provider Shaina Go Unavailable [phone] Allergies Allergen (clinical drug ingredient) Drug/Non Drug Allergy documented on EMR Reaction Allergy Type Onset Date Status lisinopril Lisinopril Nasal Drip Drug Allergy Acti ve Reason For Referral No Information Medications Medication [...] MOUTH EVERY DAY Oral; Duration: 30 Active Gazcdluqzl-HJIN-Ftuhmatu 50-300-40 MG TAKE ONE CAPSULE BY MOUTH [...] Status Risk Notes Problem Postmenopausal atrophic vaginitis (93358973) Postmenopausal atrophic vaginitis (N95.2) Active confirmed Problem Gynecological examination normal (718038876242655) Encounter for gynecological examination (general) (routine) without abnormal findings (Z01.419) Active confirmed Problem Morbid obesity (disorder) (126559739) Morbid (severe) obesity due to excess calories (E66.01) Active confirmed Problem Menopause (899511206) Menopausal and female climacteric states (N95.1) Active confirmed Encounters Encounter Location Date Provider Diagnosis [facility] [address] [place] [address] 12/25/2024 Shaina Laureano Plan Of Treatment Pending Test Test Name Order Date Urinalysis 12/13/2017 Urinalysis 03/12/2022 ESTRADIOL 03/12/2022 FSH 03/12/2022 LH 03/12/2022 THIN PREP,HPV,ANUJA IF HPV+ (>29YR)(SCRN) 12/13/2017 MM Digital Mammo Screening 03/12/2022 MM Digital Mammo Screening 03/15/2023 MM Digital Mammo Screening 03/22/2024 MM Digital Mammo Screening 03/04/2021 PELVIC ULTRASOUND W/TRANSVAGINAL 021 PELVIC ULTRASOUND W/TRANSVAGINAL 019 PELVIC ULTRASOUND W/TRANSVAGINAL 020 Next Appt Details Provider Name:Shaina alegria, 09/18/2025 08:40:00 AM, [address], [place], [address], Medical (General) History Medical History History ICD Code Unspecified ovarian cyst, right side N83 .201 Migraine without aura, intractable, with out status migrainosus G43.019 Other recurrent depressive disorders F33 .8 Calculus of kidney N20.0 Morbid (severe) obesity due to excess ca lories E66.01 Atypical squamous cells of u ndetermined significance on cytologic smear of cervix (ASC-US) R87.610 Menopausal and female climacteric states N95.1 Postmenopausal atrophic vaginitis N95.2 Mammographic fibroglandular density, zulay ateral breasts R92.323 Dense breasts, unspecified R92.30 Mammographic heterogeneous density, bila teral breasts R92.333 Other hypertrophic disorders of the skin L91.8 Surgical History Surgery Date(Month/Year) Head Surgery 06/1991 Lung Surgery 06/1991 Hysterectomy 05/2000 Bariactric and Oral Surgery Tummy Tuck/Breast Lift 07/21/22 Septic Shock Emergency Surgery 08/2022 Hospitalization History Reason Date(Month/Year) See Surgical Hx 3 Vaginal Deliveries
== END 2025-04-30 13:03 | disposition home or self-care (01) ==
LOC: HO.HBS 13:02
PROVIDERS: PCP Internal Medicine; Visit Provider Physician Assistant Surgical
DX: E66.3 Overweight (principal); Z98.84 Bariatric surgery status; L98.7 Excessive and redundant skin and subcutaneous tissue
CPT/HCPCS: 99214

== ENCOUNTER 2025-06-30 08:05 | Outpatient (REF) | payer OTHER, SELFPAY ==
--- OUTSIDE RECORDS SUMMARY | 2025-06-30 08:09 | XMS_ITS | Clinical Summary ---
Author Organization [facility] Address [address] [facility] [address] [place] [phone] Phone Care Team Providers Care Inspector Cold Working Name Role Phone Unavailable Primary Care Provider [...] It is not the complete legal health record.[facility]
[2025-06-30 08:20] LABS: MANUAL DIFF FLAG NO
[2025-06-30 09:08] LABS: Hematocrit 43.5 % (37.0-47.0); Hemoglobin 14.0 g/dl (12.0-16.0); Imm Gran Abs Auto 0.01 X10*3/uL (0.00-0.03); Imm Gran Pct Auto 0.2 % (0.0-0.4); Lymphocytes Absolute Auto 1.7 X10*3/uL (1.2-4.9); Mean Corpuscular HGB Conc 32.2 g/dl (31.0-35.0); Mean Corpuscular Hemoglobin 26.8 pg (27.0-33.0); Mean Corpuscular Volume 83.2 fL (80.0-98.0); NRBC Abs Auto 0.000 X10*3/uL (0.0-0.012); NRBC Pct Auto 0.0 /100WBC (0.0-0.2); Platelet Count 273 X10*3/uL (160-400); Red Blood Count 5.23 X10*6/uL (4.20-5.50); White Blood Count 5.0 X10*3/uL (4.8-10.8)
[2025-06-30 09:40] LABS: Alanine Aminotransferase 28 U/L (0-31); Albumin Level 4.3 g/dL (3.5-5.0); Alkaline Phosphatase 76 U/L (39-117); Anion Gap 14 (12-20); Aspartate Amino Transferase 21 U/L (5-31); Blood Urea Nitrogen 14 mg/dL (9-16); Calcium 9.6 mg/dL (8.4-10.2); Carbon Dioxide 27 mmol/L (22-29); Chloride 106 mmol/L (96-108); Cholesterol 215 mg/dL (<200); Estimated Glomerular Filt Rate > 60; HDL Cholesterol 73 mg/dL (>40); Iron 88 mcg/dL (30-160); Percent Iron Saturation 27 % (15-50); Potassium 4.1 mmol/L (3.3-5.1); Sodium 143 mmol/L (135-145); Total Iron Binding Capacity 332 mcg/dL (228-428); Total Protein 7.3 g/dL (6.5-8.0); Triglycerides 74 mg/dL (<150); Unsaturated Iron Binding 244 ug/dL
[2025-06-30 10:00] LABS: Ferritin 42 ng/mL (10-250)
[2025-06-30 10:14] LABS: Folate 5.6 ng/mL (> or = 4.0); Vitamin B12 606 pg/mL (200-900)
== END 2025-06-30 08:06 | disposition home or self-care (01) ==
LOC: HO.LAB 08:05
PROVIDERS: Absent Provider Physician Assistant Surgical; PCP Internal Medicine; Visit Provider Internal Medicine
DX: F41.1 Generalized anxiety disorder (principal); E78.00 Pure hypercholesterolemia, unspecified; Z98.84 Bariatric surgery status
CPT/HCPCS: 36415; 80053; 80061; 82306; 82607; 82728; 82746; 83036; 83525; 83540; 84425; 84443; 84590; 84630; 85025; 86140

== ENCOUNTER 2025-07-05 08:24 | Outpatient (AMB) | payer OTHER, SELFPAY ==
[2025-07-05 08:27] VITALS: BP 108/68; PULSE 63; O2SAT 98; BMI 28.5
--- NOTE | 2025-07-05 08:27 | A.OFFPC_ITS ---
Vital Signs 07/05/25 08:27 Height 4 ft 11 in Weight 141 lb BMI 28.5 BP 108/68 Blood Pressure Location Lt brachial Position Sitting Pulse 63 Pulse Source Pulse Oximeter Pulse Oximetry (%) 98 Oxygen Delivery Method Room Air Intake Visit Reasons: DM Cholesterol Allergies lisinopril (LISINOPRIL) Allergy (Intermediate, Verified 07/05/25 08:28) SWELLING/BLURRY VISION house dust Allergy (Mild, Verified 07/05/25 08:28) Hives Tobacco use date assessed: 03/08/25 Dental Screening Dental Screen Date: 03/08/25 HPI HPI Comments History of Present Illness Details History of Present Illness The patient is a 55-year-old individual presenting for a follow-up visit. The patient's medical history is significant for being overweight, hypercholesterolemia, diabetes mellitus, GERD, and general anxiety disorder. The patient has a history of a cerebrovascular accident in 1990 and underwent a laparoscopic sleeve gastrectomy in April 2020. Since the surgery, the patient's diabetes has been well-controlled, with a recent hemoglobin A1c of 5.3%. The patient has noted a 3 to 4-pound weight loss and is being followed by a weight portfolio management marketing. Current medications in clude tirzepatide (Zepbound) 7.5 mg weekly for weight management. For hypercholesterolemia, the patient takes simvastatin 5 mg daily. Hypertension is managed with losartan 25 mg daily. For anxiety, the patient is stable on fluoxetine and lorazepam as needed. Health maintenance screenings including mammogram and colonoscopy are up to date. The patient has received the annual flu shot. Vision is up to date, and the patient got new glasses about two months ago without any issues. Health Maintenance The patient has received the flu shot. Advised the patient that COVID-19 and shingles vaccines are available at the pharmacy. Screenings including mammogram, colonoscopy, and vision are all up to date. Provided guidance to mask in crowded places to prevent respiratory infections. Social History - Weight management: The patient is acti vely engaged in weight loss, follows with bariatrics, and expresses frustration with losing the last 10 pounds to reach a goal of 130 lbs. - Insurance: The patient reports [employer] insurance plans in August. Results - Blood work (June 30): - Complete Blood Count: Normal, with no anemia. - Comprehensive Metabolic Panel: Electro lytes, renal function, and liver function are normal. - Urinalysis: No proteinuria. - Glucose: 83 mg/dL. - Hemoglobin A1c: 5.3%. - Lipid Panel: HDL 73 mg/dL, LDL 128 mg/ dL. - Iron studies: Normal. - Vitamin levels: B12, D, and folic acid are within normal limits. - Thyroid function: Within normal limits . - Vitamin B1: Pending. 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 Mother Depression Anxiety Asthma Diabetes Hypertension Brother Bipolar 1 disorder Sister No problems noted. Sister No problems noted. Sister No problems noted. Son No problems noted. Son No problems noted. Daughter No problems noted. Maternal Grandmother Lymphoma CVA (cerebral vascular accident) Maternal Grandfather Oral cancer Other FH: mental illness Substance use Social History Household Members: Children Housing: House Do you presently have visiting nurse or other home services: No Alcohol intake: current Alcohol intake frequency: holidays/special occasions only Comment: social once a month 1 glass Patient Tobacco Use Status: Never used Tobacco Tobacco use type: Cigarette e-Cigarette/Vaping Use: Never Used Second Hand Smoke Exposure: No Advance Directives Date on File: 08/16/22 service: No Current occupational status: employed Current occupational exposures/hazards: No Cognitive needs: No Hearing needs: No Vision needs: Yes (Glasses) Questionnaire Thrive Questionnaire Date Thrive assessed: 11/07/24 I am a: Patient What is your living situation today?: I have a steady place to live Within the past 12 months, did the food you bought not last and you didn't have the money to get more?: Never true Within the past 12 months, did you worry whether your food would run out before you got money to buy more?: Never true Do you have trouble paying for medicines?: No Do you have trouble getting transportation to medical appointments?: No Do you have trouble paying your heating and electricity bill?: No Do you have trouble taking care of your child, family member or friend?: No Do you have trouble with day-to-day activities such as bathing, preparing meals, shopping, managing finances, etc.?: No Are you currently unemployed and looking for a job?: No Are you interested in more education?: No Please select the resources that you would like help with: None Currently or been in a relationship where the following occur: No concerns reported THRIVE Score: 0 ALAYNA-7 AMB Questionnaire ALAYNA-7 Date ALAYNA - 7 assessed: 11/14/24 Source: Developed by Drs. Eleuterio Mata, Sonia Grimes, Constantin Giron and colleagues, with an educational radha from [employer]. Review of Systems Narrative Review of Systems - Constitutional: Reports a 3 to 4-pound weight loss. - Eyes: Denies any problems with vision or new glasses. - Cardiovascular: Denies leg swelling. Physical exam (Primary Care) Vital Signs: Last Vital Signs Pulse 63 07/05/25 08:27 BP 108/68 07/05/25 08:27 Pulse Ox 98 07/05/25 08:27 Oxygen Delivery Method Room Air 07/05/25 08:27 BMI result Body Mass Index 28.5 Tobacco/Smoking Status: Tobacco use Status Tobacco use date assessed 03/08/25 07/05/25 08:32 Patient Tobacco Use Status Never used Tobacco 07/05/25 08:32 Tobacco use type Cigarette 07/05/25 08:32 e-Cigarette/Vaping Use Never Used 07/05/25 08:32 Thrive Assessment: Date of Thrive Assessment Date Thrive assessed 11/07/24 07/05/25 08:32 Currently or been in a relationship where the following occur: No concerns reported Narrative Physical Exam - Cardiovascular: Heart auscultated. - Respiratory: Lungs clear to auscultation bilaterally. - Extremities: No lower extremity edema. Const General: alert; No acute distress Eyes Conjunctivae: conjunctivae normal Resp Auscultation: clear to auscultation bilaterally Cardio Rate: regular rate Rhythm: regular rhythm GI Inspection: Yes normal to inspection Extrem General: Yes normal to inspection and No edema Coding Level of Care Code Est Pt Level 4 (02041) Complex EM visit Add On G2211 Diagnoses Type 2 diabetes mellitus with hyperglycemia, without long-term current use of insulin E11.65 Diabetes mellitus [facility] insulin use: without slabber light use Pure hypercholesterolemia E78.00 Hyperlipidemia type: pure hypercholesterolemia Essential hypertension I10 Generalized anxiety disorder F41.1 Status post laparoscopic sleeve gastrectomy Z98.84 Overweight (BMI 25.0-29.9) E66.3 Gastroesophageal reflux disease, unspecified whether esophagitis present K21.9 Esophagitis presence: esophagitis presence not specified Assessment & Plan Assessment & Plan (1) Type 2 diabetes mellitus with hyperglycemia: Comment: [address] [place] [address]. 01/2023 Code(s): E11.65 - Type 2 diabetes mellitus with hyperglycemia Category: Medical Qualifiers: Diabetes mellitus [facility] insulin use: without slabber light use Qualified Code(s): E11.65 - Type 2 diabetes mellitus with hyperglycemia Plan: Decrease the amount of carbohydrate intake, pasta, bread, rice and potatoes are all sugar and that is aside from all the sweet stuff, remember that fruits are good but they are Sweet also. Since surgery patient's diabetes has been under control the normal range. (2) Hyperlipidemia: Comment: currently on no meds Code(s): E78.5 - Hyperlipidemia, unspecified Category: Medical Qualifiers: Hyperlipidemia type: pure hypercholesterolemia Qualified Code(s): E78.00 - Pure hypercholesterolemia, unspecified Plan: Avoid fried foods, chicken skin, eggs, butter margarine, pastries and meat. Be it pork or beef they have a lot of cholesterol simvastatin 5 mg once a day LDL goal of less than 100 and triglyceride of less than 150 (3) Essential hypertension: Code(s): I10 - Essential (primary) hypertension Category: Medical Plan: Continue with blood pressure medication. Decrease salt intake and exercise on losartan 25 mg once a day (4) Generalized anxiety disorder: Comment: Declined referral for counseling presently. Code(s): F41.1 - Generalized anxiety disorder Category: Medical Plan: Stable on fluoxetine and lorazepam as needed (5) Status post laparoscopic sleeve gastrectomy: Comment: April 2020 Code(s): Z98.84 - Bariatric surgery status Category: Surgical Plan: Continue to follow-up with bariatric (6) Overweight (BMI 25.0-29.9): Code(s): E66.3 - Overweight Category: Medical Plan: Patient on tirzepatide 7.5 mg once a week (7) GERD (gastroesophageal reflux disease): Code(s): K21.9 - Gastro-esophageal reflux disease without esophagitis Category: Medical Qualifiers: Esophagitis presence: esophagitis presence not specified Qualified Code(s): K21.9 - Gastro-esophageal reflux disease without esophagitis Plan: Avoid the foods that causes that usually spicy foods, tomato products, juices, coffee, soda and foods that your sensitive to. After eating do not lie down, allow 3-4 hours before in lie down. And keep the head of bed above 30 degrees to avoid the acid from going up. Plan Plan Patient was informed and verbally consented to the use of an ambient scribe for clinic note documentation during this visit. 1. Overweight And Weight Management The patient will continue to follow up with bariatrics for weight management. Continue tirzepatide 7.5 mg once weekly. Encouraged to continue working towards the goal weight of 130 pounds. 2. Hypercholesterolemia Continue simvastatin 5 mg once daily. The treatment goal is an LDL less than 100 mg/dL and triglycerides less than 150 mg/dL. Recent lab work shows an LDL of 128 mg/dL, which is considered an acceptable result. 3. Hypertension Continue losartan 25 mg once daily. A 90-day supply refill will be sent to the pharmacy. 4. General Anxiety Disorder The condition is stable. Continue fluoxetine and lorazepam as needed. A 90-day prescription refill for fluoxetine will be sent to the pharmacy. 5. Diabetes Mellitus The patient's diabetes is in remission post-sleeve gastrectomy, with a hemoglobin A1c of 5.3%. No changes to the management plan at this time. 6. Gastroesophageal Reflux Disease Continue current management for reflux. Discussion Notes I reviewed the patient's recent lab results from June, which are all reassuringly within normal limits. I noted the hemoglobin A1c of 5.3%, indicating continued remission of diabetes post-bariatric surgery. We discussed cholesterol levels, noting the LDL is 128 mg/dL and HDL is 73 mg/dL, which are good results on the current simvastatin therapy. I encouraged the patient to continue working toward the goal weight of 130 lbs and acknowledged the difficulty in losing the final pounds. We discussed vaccinations, confirming the patient has had the flu shot, and I advised that the COVID and shingles vaccines can be obtained at a pharmacy. Due to a planned change in insurance, I agreed to send 90-day refills for fluoxetine and losartan. Finally, I provided anticipatory guidance regarding the current cold and flu season, recommending masking in crowded situations. Patient Instructions - Continue your current medications as prescribed, including simvastatin, losartan, tirzepatide, fluoxetine, and lorazepam. - A 90-day supply of your fluoxetine (Prozac) and losartan has been sent to your pharmacy. - Continue to work towards your weight goal of 130 pounds. - You can get your COVID and shingles vaccines at a local pharmacy. - Continue following up with your bariatrics team for weight management. - Your lab results are good, and your health screenings like your mammogram and colonoscopy are up to date. - To avoid getting sick this season, consider wearing a mask in crowded places. Medications: Changed From fluoxetine 30 mg (3 x 10 mg) PO DAILY 30 days 90 caps 2RF F41.1 - Generalized anxiety disorder To fluoxetine 30 mg (3 x 10 mg) PO DAILY 270 caps 2RF 90 days F41.1 - Generalized anxiety disorder Refilled lorazepam 0.5 mg PO DAILY PRN 30 tabs 0RF Anxiety
--- OUTSIDE RECORDS SUMMARY | 2025-07-05 09:04 | XMS_ITS | Clinical Summary ---
Author Organization [facility] Address [address] [place] [phone] Phone Care Team Providers Care Tug Boat Engineer Name Role Phone Unavailable Primary Care Provider [...] It is not the complete legal health record.[facility]
== END 2025-07-05 08:51 | disposition home or self-care (01) ==
LOC: HO.HMCH 08:25
PROVIDERS: PCP Internal Medicine; Visit Provider Internal Medicine
DX: E11.65 Type 2 diabetes mellitus with hyperglycemia (principal); E78.00 Pure hypercholesterolemia, unspecified; I10 Essential (primary) hypertension; F41.1 Generalized anxiety disorder; Z98.84 Bariatric surgery status; E66.3 Overweight; K21.9 Gastro-esophageal reflux disease without esophagitis

== ENCOUNTER → 2025-07-05 08:24 | Outpatient (BNVA) | payer OTHER, SELFPAY | PROVIDERS: PCP Internal Medicine; Visit Provider Internal Medicine | DX: E11.65 Type 2 diabetes mellitus with hyperglycemia (principal); E78.00 Pure hypercholesterolemia, unspecified; I10 Essential (primary) hypertension; F41.1 Generalized anxiety disorder; E66.3 Overweight; K21.9 Gastro-esophageal reflux disease without esophagitis; Z98.84 Bariatric surgery status; Z68.28 Body mass index [BMI] 28.0-28.9, adult | CPT/HCPCS: 99212 ==